=== PATIENT | male | born 1960 | race Caucasian/White ===

== ENCOUNTER 2020-06-05 09:32 | Outpatient (REF) | payer BC, SELFPAY | END 2020-06-05 09:33 | disposition home or self-care (01) | LOC: HO.LAB 09:32 | PROVIDERS: Visit Provider Internal Medicine | DX: Z20.828 Contact with and (suspected) exposure to other viral communicable diseases (principal) | CPT/HCPCS: C9803; U0003 ==

== ENCOUNTER 2020-08-05 16:58 | Emergency (ER) | payer BC, SELFPAY ==
[2020-08-05 17:07] VITALS: BP 147/88; PULSE 88; RESP 18; TEMP 36.8; O2SAT 99
[2020-08-05] MEDS: oxyCODONE HCl Immed Release 5 MG TABLET PO (17:11)
[2020-08-05] MEDS: Lidocaine HCl 1 % MPF 5 ML VIAL SUBCUT (17:11)
--- NOTE | 2020-08-05 17:25 | ED.WOUNDLAC ---
HPI - Wound/Laceration General Chief Complaint: Wound/Laceration Stated Complaint: laceration Time Seen by Provider: 08/05/20 17:03 Source: patient Mode of arrival: ambulatory Limitations: no limitations History of Present Illness HPI narrative: 60yoM presenting to the ED after he sustained a laceration to his right hand index finger from a pocket knife while at home [employer]. Reports that he is not up-to-date on tetanus. Denies any fevers, concerns for foreign bodies, purulent discharge or any other injuries complaints or concerns at this time. Related Data Previous Rx's Medication Instructions Recorded cephalexin [Keflex] 500 mg PO Q6H 10 Days #40 cap 08/05/20 doxycycline monohydrate 100 mg PO BID 10 Days #20 cap 08/05/20 oxycodone-acetaminophen [Percocet] 1 tab PO Q6H PRN #10 tab 08/05/20 Allergies Allergy/AdvReac Type Severity Reaction Status Date / Time No Known Allergies Allergy Unverified 04/09/20 16:18 [No Known Allergies*] Review of Systems Review of Systems: Constitutional : No Fever, No Chills, Cardiovascular : No Chest Pain, No SOB Respiratory : No Dyspnea Gastrointestinal : No abdominal pain Musculoskeletal : No Joint Swelling Skin : positive skin laceration, No Foreign bodies, No rash, No surrounding erythema Neuro : No Weakness, No Numbness/tingling Psych : No SI/HI/thoughts of self injury Yes all other systems are reviewed and are negative [facility] Past Medical History Attestation statement: The following information was validated with the patient. Medical History Migraine Social History Social History Alcohol intake: never Smoked in Last 30 Days: No Use of substances other than those prescribed or required for medical reasons: No Advance Directives: No Advance Directives Information Provided: Yes Physical Exam Vital Signs: Vital Signs: Last Vital Signs Temp 98.2 F 08/05/20 17:07 Pulse 88 08/05/20 17:07 Resp 18 08/05/20 17:07 BP 147/88 H 08/05/20 17:07 Pulse Ox 99 08/05/20 17:07 Body Mass Index 2.7 vital signs have been reviewed as normal and appeared to be correct. Blood pressure normal. Heart rate normal. Respiration rate normal. Temperature normal. Oxygen saturation normal. Appearance: Alert. Oriented X3. No acute distress. Head: Normal external exam. Normocephalic. Atraumatic. Eyes: PERRLA. EOMI. Conjunctiva and sclera normal. Eyelids normal. ENT: Pharynx normal. Uvula midline. Moist mucous membranes. Neck: Normal inspection. Neck supple. FROM. No adenopathy. No meningeal signs. CVS: Normal heart rate and rhythm. Heart sound normal. No murmurs noted. Pulses normal throughout. Respiratory: No respiratory distress. Painless inspiration. Breath sounds normal. No wheezes/rales/rhonchi noted. Chest nontender. No accessory muscle usage noted or decreased air movement noted. Back: Full range of motion noted. Skin: To right hand index finger patient has a 2 cm intermediate laceration. No foreign bodies. Bleeding is controlled. Otherwise the rest of the Skin is warm and dry. Normal skin color. Normal skin turgor. No rashes/lesions noted. Extremities: Extremities exhibit normal range of motion. Extremities nontender. Neuro: Oriented X 3. No motor deficit. No sensory deficit. Reflexes normal. Course Course Course Narrative: 60yoM presenting to the ED after he sustained a laceration to his right hand index finger from a pocket knife while at home [employer] - patient is now status post laceration repair with [address] Patient tolerated procedure well. No complications. Tetanus updated at this time. - will DC home with antibiotics and symptomatic treatment along with instructions return in 10 days for suture removal. Patient understands agrees the plan. Procedures Laceration Laceration 1: Site: hand Side (If applicable): right Size (cm): 2 Description: linear Depth: simple, single layer Local Anesthetic: lidocaine 1% Amount of anesthesia used (mL): 5 Pre-repair: wound explored, irrigated extensively and deep structures intact Skin layer closed with: nylon Size (cm): 4-0 Number of sutures: 7 Technique: simple, interrupted MDM - Wound/Laceration Medical Records Attestation: I reviewed the patient's medical records. Discharge Plan Discharge Clinical Impression: Laceration Patient Disposition: Home, Self-Care Instructions: Finger Laceration (ED) Prescriptions: New oxycodone-acetaminophen [Percocet] 5-325 mg tablet 1 tab PO Q6H PRN (Reason: pain) Qty: 10 RF: 0 doxycycline monohydrate 100 mg capsule 100 mg PO BID 10 Days Qty: 20 RF: 0 cephalexin [Keflex] 500 mg capsule 500 mg PO Q6H 10 Days Qty: 40 RF: 0 Referrals: Piper Hernandez PA [Emergency Midlevel Provider] - 10 days Stand Alone Forms: Work/School Release Print Language: Syriac
== END 2020-08-05 17:46 | disposition home or self-care (01) ==
PROVIDERS: Emergency Provider Internal Medicine
DX: S61.210A Laceration without foreign body of right index finger without damage to nail, initial encounter (principal); W26.0XXA Contact with knife, initial encounter; Y93.9 Activity, unspecified; Y92.019 Unspecified place in single-family (private) house as the place of occurrence of the external cause; Y99.9 Unspecified external cause status
CPT/HCPCS: 12041; 90471; 90715; 99284

== ENCOUNTER 2021-11-02 07:20 | Emergency (ER) | payer BC, SELFPAY ==
--- NOTE | ~2021-11-02 | CT_ITS ---
EXAMINATION: CT ABDOMEN AND PELVIS WITH CONTRAST CLINICAL INFORMATION: Abdominal pain and diarrhea COMPARISON: None TECHNIQUE: Multidetector volumetric images were obtained from the superior aspect of the liver through the pubic symphysis following administration 85 mL of Omnipaque 350 intravenous contrast. Sagittal and coronal reformatted images were obtained on the technologist's workstation. Oral contrast: Yes This CT examination was performed using dose optimization techniques as appropriate, variously including the following: *Automated exposure control *Adjustment of mA and/or kV according to patient size (this includes techniques or standardized protocols for targeted exams where dose is matched to indication/reason for exam; i.e. extremities or head) *Use of iterative reconstruction technique DLP: 597 mGy-cm FINDINGS: LUNG BASES: The visualized lung bases are unremarkable. LIVER, GALLBLADDER, AND BILIARY TREE: The liver is normal in size, shape, and attenuation. No focal hepatic lesion or biliary ductal dilatation is present. The gallbladder is unremarkable with no evidence of radiopaque gallstones, gallbladder wall thickening, or obvious pericholecystic inflammatory changes. PANCREAS: Unremarkable. SPLEEN: Unremarkable. ADRENAL GLANDS: Unremarkable. KIDNEYS AND URETERS: The kidneys are normal in size, shape, and attenuation. No hydronephrosis, hydroureter, or calculi seen. No perinephric stranding. BLADDER: Unremarkable. GASTROINTESTINAL TRACT: There is diverticulosis of the colon. The small and large bowel are otherwise unremarkable. The appendix is unremarkable. ABDOMINAL WALL: Postsurgical changes in the right inguinal and umbilical region. No hernia is seen. LYMPH NODES: Normal. VASCULAR: Unremarkable. PELVIC VISCERA: Unremarkable. OSSEOUS STRUCTURES: There are degenerative changes of the spine and hip joints. CT/CT abdomen pelvis w con IMPRESSION: Diverticulosis. No evidence of diverticulitis. Fleischner guidelines were followed.
[2021-11-02 07:33] VITALS: BP 122/80; PULSE 96; RESP 16; TEMP 37.1; O2SAT 96; BMI 31.1
--- NOTE | 2021-11-02 07:45 | ED_ITS ---
HPI - Nausea/Vomiting/Diarrhea General Chief complaint: Abdominal Pain Stated complaint: vomiting Time Seen by Provider: 11/02/21 07:35 Source: patient Mode of arrival: ambulatory Limitations: no limitations History of Present Illness MD elicited complaint: nausea, vomiting, diarrhea and abdominal pain Onset (ago): day(s) (since Monday ) Description of vomiting: food contents and watery Description of diarrhea: other (foul smelling watery ) Associated nausea: Yes Associated abdominal pain: Yes Location of pain: diffuse Radiation: diffuse Pain consistency: intermittent Severity: mild Quality: cramping Exacerbating factors: eating Relieving factors: none Context: possible food poisoning (started after eating at [employer] on Monday ) and recent antibiotic use (last week took 3 doses of doxy for tick bite) Associated symptoms: loss of appetite, malaise and nausea/vomiting Related Data Previous Rx's Medication Instructions Recorded cephalexin 500 mg capsule (Keflex) 500 mg PO Q6H 10 Days #40 cap 08/05/20 doxycycline monohydrate 100 mg 100 mg PO BID 10 Days #20 cap 08/05/20 capsule oxycodone-acetaminophen 5 mg-325 1 tab PO Q6H PRN #10 tab 08/05/20 mg tablet (Percocet) ondansetron 4 mg disintegrating 4 mg PO Q8H PRN #20 tab 11/02/21 tablet vancomycin 125 mg capsule 125 mg PO QID 10 Days #40 cap 11/02/21 Allergies Allergy/AdvReac Type Severity Reaction Status Date / Time No Known Allergies Allergy Unverified 04/09/20 16:18 [No Known Allergies*] Review of Systems Review of Systems: Constitutional : No Weight loss, No Fever, No Chills ENT/Mouth : No sore throat, No Rhinorrhea Eyes: No Swelling, No Redness Cardiovascular : No Chest Pain, No SOB, NoEdema Respiratory : No Cough, No Sputum, No Wheezing Gastrointestinal : Positive Nausea, Positive Vomiting, positive Diarrhea, positive abdominal Pain, No Hematochezia, No Melena Genitourinary : No Dysuria, No Urinary Frequency, No Hematuria, No Urgency Musculoskeletal : No joint pain, No Myalgias, No Joint Swelling Skin : No Skin Lesions, No rash Neuro : No Weakness, No Numbness, No Dizziness, No Headache Psych : No Anxiety/Panic, No Depression Heme/Lymph: No Bruising, No Lymphadenopathy Endocrine : No Polyuria, No Polydipsia All other systems reviewed and are negative. Gastrointestinal: Gastrointestinal: Reports nausea PMFSH Past Medical History Attestation statement: The following information was validated with the patient. Medical History (Updated 11/02/21 @ 15:35 by Ariadna Ng DO) Hyperlipidemia Migraine Surgical History (Updated 11/02/21 @ 07:57 by Ariadna Ng DO) H/O hernia repair Social History Social History (Updated 11/02/21 @ 07:57 by Ariadna Ng DO) Alcohol intake: never Patient Tobacco Use Status: Never used Tobacco Advance Directives: No Advance Directives Information Provided: No Physical Exam Vital Signs: Vital Signs: Last Vital Signs Temp 99.6 F 11/02/21 10:20 Pulse 73 11/02/21 10:20 Resp 15 11/02/21 10:20 BP 117/62 11/02/21 10:20 Pulse Ox 98 11/02/21 10:20 BMI result Body Mass Index 31.1 Appearance: Alert. Oriented X3. No acute distress. Eyes: Pupils equal, round and reactive to light. ENT: Pharynx mild dry MM Neck: Normal inspection. Neck supple. CVS: Normal heart rate and rhythm. Pulses normal. Respiratory: No respiratory distress. Breath sounds normal. Abdomen: Soft and mild diffuse ttp Skin: Skin warm and dry. Normal skin color. Normal skin turgor. Extremities: No lower extremity edema. No calf ttp Neuro: Oriented X 3. No motor deficit. No sensory deficit. Course Course Course Narrative: no colitis on CT scan at this time, no WBC count, pending stool study negative WBC in stool , c diff pending CT scan negative at this time no indication for antibiotics will start on brat diet - flu pending can tolerate PO stool studies positive for c diff - will start on oral vancomycin no MONICA MDM - Nausea/Vomiting/Diarrhea MDM Narrative Medical decision making narrative: 61 yo male with hx of HLD, ileus, hernia repair here with c/o n/v/d abdominal cramps after eating at [employer] on Monday. He also took doxy last week for tick bite on RL. He notes foul smelling diarrhea and incontinence of his stool. At this time labs, stool studies, CT scan for colitis ordered, IVF x 2L, IV morphine for pain. Dispo per results and findings. Lab Data Result diagrams: 11/02/21 07:50 11/02/21 07:50 Labs: Lab Results 11/02/21 11/02/21 11/02/21 Range/Units 07:50 07:50 07:50 WBC 6.2 (4.8-10.8) X10*3/uL RBC 5.33 (4.60-5.80) X10*6/uL Hgb 15.6 (14.0-18.0) g/dl Hct 47.3 (42.0-52.0) % MCV 88.7 (80.0-98.0) fL MCH 29.3 (27.0-33.0) pg MCHC 33.0 (31.0-36.0) g/dl RDW 13.5 (11.0-16.0) % Plt Count 170 (160-400) X10*3/uL MPV 9.7 (9.4-12.4) fL Immature Gran % (Auto) 0.3 (0.0-0.4) % Neut % (Auto) 68.1 (45-73) % Lymph % (Auto) 15.9 L (20-40) % Walker % (Auto) 14.5 H (2-11) % Eos % (Auto) 1.0 (0-4) % Baso % (Auto) 0.2 (0-2) % Lymph # (Auto) 1.0 L (1.2-4.9) X10*3/uL Walker # (Auto) 0.9 (0.1-1.2) X10*3/uL Eos # (Auto) 0.1 (0.0-0.4) X10*3/uL Baso # (Auto) 0.0 (0.0-0.2) X10*3/uL Abs Immat Gran (auto) 0.02 (0.00-0.03) X10*3/uL Absolute Neuts (auto) 4.2 (2.0-8.3) x10*3/uL Absolute Nucleated RBC 0.000 (0.0-0.012) X10*3/uL Nucleated RBC % (auto) 0.0 (0.0-0.2) /100WBC Sodium 139 (135-145) mmol/L Potassium 3.6 (3.3-5.1) mmol/L Chloride 108 (96-108) mmol/L Carbon Dioxide 21 L (22-29) mmol/L Anion Gap 14 (12-20) BUN 14 (9-16) mg/dL Creatinine 0.82 (0.5-1.4) mg/dL Estim Creat Clear Calc 119.6 Estimated GFR > 60 Random Glucose 125 H (60-115) mg/dL Lactic Acid 0.9 (0.5-2.0) mmol/L Calcium 8.8 (8.4-10.2) mg/dL Magnesium 1.9 (1.6-2.6) mg/dL Total Bilirubin 0.5 (0.0-1.0) mg/dL Direct Bilirubin 0.2 (0.0-0.5) mg/dL AST 23 (5-37) U/L ALT 28 (0-40) U/L Alkaline Phosphatase 57 (39-117) U/L Total Protein 6.0 L (6.5-8.0) g/dL Albumin 3.8 (3.5-5.0) g/dL Lipase 7 L (8-78) U/L Urine Color Urine Appearance Urine pH (5.0-8.0) Ur Specific [place] (1.005-1.025) Urine Protein (NEG-TRACE) MG/DL Urine Glucose (UA) (NEG) MG/DL Urine Ketones (NEG) MG/DL Urine Blood (NEG) Urine Nitrite (NEG) Ur Leukocyte Esterase (NEG) Urine RBC (0) /HPF Urine WBC (0-4) /HPF Ur Squamous Epith Cells /LPF Urine Bacteria /LPF Stool Leukocytes, Qual (NEGATIVE) C. difficile Tox B Gene (Negative) COVID-19 (JACQUI) (Negative) COVID-19 Clin Com Influenza Type A (SUSHANT) (Negative) Influenza Type B (SUSHANT) (Negative) Influenza A & B Note 11/02/21 11/02/21 11/02/21 Range/Units 07:50 10:19 10:19 WBC (4.8-10.8) X10*3/uL RBC (4.60-5.80) X10*6/uL Hgb (14.0-18.0) g/dl Hct (42.0-52.0) % MCV (80.0-98.0) fL MCH (27.0-33.0) pg MCHC (31.0-36.0) g/dl RDW (11.0-16.0) % Plt Count (160-400) X10*3/uL MPV (9.4-12.4) fL Immature Gran % (Auto) (0.0-0.4) % Neut % (Auto) (45-73) % Lymph % (Auto) (20-40) % Walker % (Auto) (2-11) % Eos % (Auto) (0-4) % Baso % (Auto) (0-2) % Lymph # (Auto) (1.2-4.9) X10*3/uL Walker # (Auto) (0.1-1.2) X10*3/uL Eos # (Auto) (0.0-0.4) X10*3/uL Baso # (Auto) (0.0-0.2) X10*3/uL Abs Immat Gran (auto) (0.00-0.03) X10*3/uL Absolute Neuts (auto) (2.0-8.3) x10*3/uL Absolute Nucleated RBC (0.0-0.012) X10*3/uL Nucleated RBC % (auto) (0.0-0.2) /100WBC Sodium (135-145) mmol/L Potassium (3.3-5.1) mmol/L Chloride (96-108) mmol/L Carbon Dioxide (22-29) mmol/L Anion Gap (12-20) BUN (9-16) mg/dL Creatinine (0.5-1.4) mg/dL Estim Creat Clear Calc Estimated GFR Random Glucose (60-115) mg/dL Lactic Acid (0.5-2.0) mmol/L Calcium (8.4-10.2) mg/dL Magnesium (1.6-2.6) mg/dL Total Bilirubin (0.0-1.0) mg/dL Direct Bilirubin (0.0-0.5) mg/dL AST (5-37) U/L ALT (0-40) U/L Alkaline Phosphatase (39-117) U/L Total Protein (6.5-8.0) g/dL Albumin (3.5-5.0) g/dL Lipase (8-78) U/L Urine Color Urine Appearance Urine pH (5.0-8.0) Ur Specific [place] (1.005-1.025) Urine Protein (NEG-TRACE) MG/DL Urine Glucose (UA) (NEG) MG/DL Urine Ketones (NEG) MG/DL Urine Blood (NEG) Urine Nitrite (NEG) Ur Leukocyte Esterase (NEG) Urine RBC (0) /HPF Urine WBC (0-4) /HPF Ur Squamous Epith Cells /LPF Urine Bacteria /LPF Stool Leukocytes, Qual NEGATIVE (NEGATIVE) C. difficile Tox B Gene POSITIVE A* (Negative) COVID-19 (JACQUI) Negative (Negative) COVID-19 Clin Com See Note Influenza Type A (SUSHANT) (Negative) Influenza Type B (SUSHANT) (Negative) Influenza A & B Note 11/02/21 11/02/21 Range/Units 11:15 11:39 WBC (4.8-10.8) X10*3/uL RBC (4.60-5.80) X10*6/uL Hgb (14.0-18.0) g/dl Hct (42.0-52.0) % MCV (80.0-98.0) fL MCH (27.0-33.0) pg MCHC (31.0-36.0) g/dl RDW (11.0-16.0) % Plt Count (160-400) X10*3/uL MPV (9.4-12.4) fL Immature Gran % (Auto) (0.0-0.4) % Neut % (Auto) (45-73) % Lymph % (Auto) (20-40) % Walker % (Auto) (2-11) % Eos % (Auto) (0-4) % Baso % (Auto) (0-2) % Lymph # (Auto) (1.2-4.9) X10*3/uL Walker # (Auto) (0.1-1.2) X10*3/uL Eos # (Auto) (0.0-0.4) X10*3/uL Baso # (Auto) (0.0-0.2) X10*3/uL Abs Immat Gran (auto) (0.00-0.03) X10*3/uL Absolute Neuts (auto) (2.0-8.3) x10*3/uL Absolute Nucleated RBC (0.0-0.012) X10*3/uL Nucleated RBC % (auto) (0.0-0.2) /100WBC Sodium (135-145) mmol/L Potassium (3.3-5.1) mmol/L Chloride (96-108) mmol/L Carbon Dioxide (22-29) mmol/L Anion Gap (12-20) BUN (9-16) mg/dL Creatinine (0.5-1.4) mg/dL Estim Creat Clear Calc Estimated GFR Random Glucose (60-115) mg/dL Lactic Acid (0.5-2.0) mmol/L Calcium (8.4-10.2) mg/dL Magnesium (1.6-2.6) mg/dL Total Bilirubin (0.0-1.0) mg/dL Direct Bilirubin (0.0-0.5) mg/dL AST (5-37) U/L ALT (0-40) U/L Alkaline Phosphatase (39-117) U/L Total Protein (6.5-8.0) g/dL Albumin (3.5-5.0) g/dL Lipase (8-78) U/L Urine Color YELLOW Urine Appearance CLEAR Urine pH 5.5 (5.0-8.0) Ur Specific [place] 1.010 (1.005-1.025) Urine Protein NEG (NEG-TRACE) MG/DL Urine Glucose (UA) NEG (NEG) MG/DL Urine Ketones 5 (NEG) MG/DL Urine Blood TRACE (NEG) Urine Nitrite NEG (NEG) Ur Leukocyte Esterase NEG (NEG) Urine RBC 0-2 (0) /HPF Urine WBC 0 (0-4) /HPF Ur Squamous Epith Cells TRACE /LPF Urine Bacteria NONE /LPF Stool Leukocytes, Qual (NEGATIVE) C. difficile Tox B Gene (Negative) COVID-19 (JACQUI) (Negative) COVID-19 Clin Com Influenza Type A (SUSHANT) Negative (Negative) Influenza Type B (SUSHANT) Negative (Negative) Influenza A & B Note See Note Discharge Plan Discharge Clinical Impression: C. difficile colitis Vomiting Qualifiers: Vomiting type: unspecified Diarrhea Qualifiers: Diarrhea type: unspecified type Qualified Code(s): R19.7 - Diarrhea, unspecified Patient Disposition: Home, Self-Care Instructions: C. Diff (Clostridioides Difficile) Infection (ED), Acute Nausea and Vomiting (ED), Acute Diarrhea (ED) Additional Instructions: return to ED for any worsening symptoms or concerns BRAT diet your labs were shockingly normal. no signs of infection on CT scan. stool WBC negative, stool culture is pending. flu and Cdiff is pending if positive we will call you but unlikely to have c diff with negative WBCs in stool no dairy for 5 days stay hydrated Prescriptions: New ondansetron 4 mg tablet,disintegrating 4 mg PO Q8H PRN (Reason: nausea and vomiting) Qty: 20 0RF vancomycin 125 mg capsule 125 mg PO QID 10 Days Qty: 40 0RF No Action oxycodone-acetaminophen [Percocet] 5-325 mg tablet 1 tab PO Q6H PRN (Reason: pain) Qty: 10 0RF Rx Instructions: May be partially filled doxycycline monohydrate 100 mg capsule 100 mg PO BID 10 Days Qty: 20 0RF cephalexin [Keflex] 500 mg capsule 500 mg PO Q6H 10 Days Qty: 40 0RF Referrals: Baltazar Poole MD [Primary Care Provider] - 2 days (if not better) Stand Alone Forms: Work/School Release Interventions: ED Discharge Assessment Last Done: 11/02/21 11:57 Discharge Date/Time: 11/02/21 12:15
[2021-11-02] MEDS: ondansetron HCL 4 MG/2 ML VIAL IVPUSH (07:55)
[2021-11-02] MEDS: Morphine Sulfate 4 MG/ML CARTRIDGE IVPUSH (07:55)
[2021-11-02 07:56] LABS: MANUAL DIFF FLAG NO
[2021-11-02 07:57] LABS: Basophils Percent Auto 0.2 % (0-2); Eosinophils Absolute Auto 0.1 X10*3/uL (0.0-0.4); Hematocrit 47.3 % (42.0-52.0); Hemoglobin 15.6 g/dl (14.0-18.0); Imm Gran Abs Auto 0.02 X10*3/uL (0.00-0.03); Imm Gran Pct Auto 0.3 % (0.0-0.4); Lymphocytes Percent Auto 15.9 % (20-40); Mean Corpuscular Hemoglobin 29.3 pg (27.0-33.0); Mean Corpuscular Volume 88.7 fL (80.0-98.0); Mean Platelet Volume 9.7 fL (9.4-12.4); Monocytes Absolute Auto 0.9 X10*3/uL (0.1-1.2); Monocytes Percent Auto 14.5 % (2-11); Neutrophils Absolute Auto 4.2 x10*3/uL (2.0-8.3); Neutrophils Percent Auto 68.1 % (45-73); Platelet Count 170 X10*3/uL (160-400); Red Blood Count 5.33 X10*6/uL (4.60-5.80); Red Cell Distribution Width 13.5 % (11.0-16.0); White Blood Count 6.2 X10*3/uL (4.8-10.8)
[2021-11-02 08:05] VITALS: BP 117/78; PULSE 83; RESP 18; TEMP 37.5; O2SAT 94
[2021-11-02 08:09] LABS: Lactic Acid 0.9 mmol/L (0.5-2.0)
[2021-11-02 08:15] LABS: Alanine Aminotransferase 28 U/L (0-40); Albumin Level 3.8 g/dL (3.5-5.0); Alkaline Phosphatase 57 U/L (39-117); Anion Gap 14 (12-20); Aspartate Amino Transferase 23 U/L (5-37); Bilirubin Direct 0.2 mg/dL (0.0-0.5); Bilirubin Total 0.5 mg/dL (0.0-1.0); Blood Urea Nitrogen 14 mg/dL (9-16); Calcium 8.8 mg/dL (8.4-10.2); Carbon Dioxide 21 mmol/L (22-29); Chloride 108 mmol/L (96-108); Creatinine Clr Calc Pharmacy 119.6; Estimated Glomerular Filt Rate > 60; Glucose Random 125 mg/dL (60-115); Lipase 7 U/L (8-78); Magnesium 1.9 mg/dL (1.6-2.6); Potassium 3.6 mmol/L (3.3-5.1); Sodium 139 mmol/L (135-145)
[2021-11-02] MEDS: 0.9 % Sodium Chloride 1,000 ML 999 ML IVCONT ×2 (08:23→08:44)
[2021-11-02 08:25] LABS: COVID-19 Test Negative (Negative); IDNOW Serial# 16C4AD1C
[2021-11-02] MEDS: iohexoL 350 MG/ML 100 ML INFUS..BTL IV (08:41)
--- NOTE | 2021-11-02 09:21 | PC.NURSE ---
resting comfortably, no episodes of diarrhea since arrival. good pain control with medication
[2021-11-02 10:20] VITALS: BP 117/62; PULSE 73; RESP 15; TEMP 37.6; O2SAT 98
[2021-11-02 11:18] LABS: Leukocytes Stool Qualitative NEGATIVE (NEGATIVE)
[2021-11-02 11:32] LABS: Appearance Urine CLEAR; Color Urine YELLOW; Glucose Urine UA NEG (NEG); Leukocyte Esterase Urine NEG (NEG); Nitrite Urine NEG (NEG); PH 5.5 (5.0-8.0); UACC Culture Trigger NO; Urine Blood TRACE (NEG); Urine Ketones 5 MG/DL (NEG); Urine Protein NEG (NEG-TRACE)
[2021-11-02 11:42] LABS: RBC Urine 0-2 /HPF (0); Squamous Epithelial Cell Urine TRACE /LPF; WBC Urine 0 /HPF (0-4)
[2021-11-02 12:14] LABS: IDNOW Serial# 55D5AD1C; Influenza A Negative (Negative); Influenza B2 Negative (Negative)
[2021-11-02 14:15] LABS: CDiff Gene PCR POSITIVE (Negative)
[2021-11-02 15:45] LABS: CDIFF Internal ctrl Dots and bkg OK (V); CDiff Toxin Negative (Negative)
== END 2021-11-02 12:15 | disposition home or self-care (01) ==
PROVIDERS: Emergency Provider Emergency Medicine; PCP Pediatrics
DX: A04.72 Enterocolitis due to Clostridium difficile, not specified as recurrent (principal); R11.2 Nausea with vomiting, unspecified; R19.7 Diarrhea, unspecified; Z20.822 Contact with and (suspected) exposure to COVID-19
CPT/HCPCS: 36415; 74177; 80048; 80076; 81001; 83605; 83690; 83735; 85025; 87040; 87045; 87046; 87324; 87493; 87502; 87635; 89055; 96361; 96374; 96375; 99284; J2270; J2405; Q9967

== ENCOUNTER 2022-06-01 11:05 | Emergency (ER) | payer OTHER, BC, SELFPAY ==
--- NOTE | ~2022-06-01 | XR_ITS ---
EXAMINATION: XR FINGER, LEFT CLINICAL INFORMATION: Fracture dislocation and reduction COMPARISON: Earlier exam of 06/01/2022 TECHNIQUE: 3 views of the left first finger. FINDINGS: Satisfactory reduction of a previously noted dislocation at the first IP joint. New fractures or alignment abnormalities are not observed. XR/XR finger LT min 2V IMPRESSION: Satisfactory reduction.
--- NOTE | ~2022-06-01 | XR_ITS ---
EXAMINATION: XR FINGER, LEFT CLINICAL INFORMATION: Left first digit COMPARISON: None TECHNIQUE: 3 views of the left first digit. FINDINGS: Dislocation of the first IP joint noted. The lateral view demonstrates a faint chip fracture or avulsion injury off the dorsal base of the distal phalanx.. There is degenerative change at the first MCP joint. There is degenerative change at the first CMC joint as well as the second through fifth DIP joints. There is mild spurring off the third metacarpal head. XR/XR finger LT min 2V IMPRESSION: Dislocated IP joint is noted with probable dorsal chip fracture off the base of the distal phalanx.
[2022-06-01 11:20] VITALS: BP 117/73; PULSE 78; RESP 12; TEMP 36.8; O2SAT 96; BMI 32.1
--- OUTSIDE RECORDS SUMMARY | 2022-06-01 11:25 | XMS_ITS ---
:1960 Author Care Team Providers Name Role Phone DR. AMBER ROSAS Referring Provider [phone] Allergies None recorded. Medications None recorded. Problems None recorded. Procedures None recorded. Results Lab Results None recorded. Past Encounters None recorded. Social History None recorded. Vaccine List None recorded. Plan of Care Reminders Provider Appointments None recorded. ? ? Lab None recorded. ? ? Referral None recorded. ? ? Procedures None recorded. ? ? Surgeries None recorded. ? ? Imaging None recorded. ? ? Vitals None recorded.
--- OUTSIDE RECORDS SUMMARY | 2022-06-01 11:26 | XMS_ITS | Encounter Summary ---
:1960 Author Care Team Providers Name Role Phone Cole Salgado PA-C Primary Care Provider [phone] Ravindra Montano MD Referring Provider [phone] Antelmo Carter MD Referring Provider [phone] Sina Tripathi MD General Surgeon [phone] Feroz Powell Tube Machine Operator Helper [phone] Yuli Jean-Baptiste MD Neurologist [phone] Reason for Visit Migraine; Phone/Video Visit Assessment and Plan Assessment Note This service was provided using telemed icine. Patient consented to video & audio visit Patient was located in the [facility]. Provider was located in the office. No other persons participated in the tel emedicine visit except for the patient unless otherwise indicated here. {{}} Total time of visit was 23 minutes. 1. Migraine better on trial of 60mg recently - so w ill increase dose from 30mg to 60mg and cont to monitor ? Qulipta 60 mg tablet ? rizatriptan 10 mg tablet 2. Insomnia stable, cont med as dir - pt requested increase # of tabs, [facility] issues c [facility] - -- encouraged pt to use prn instead of qd ? zolpidem 10 mg tablet Discussion Note: None recorded.Patient educational handouts: No information available. Plan of Care Reminders Provider Appointments [place] on or around 11/29/2022 Prem Salgado PA-C Lab None recorded. ? ? Referral None recorded. ? ? Procedures None recorded. ? ? Surgeries None recorded. ? ? Imaging None recorded. ? ? Medications Name Start Date ? ? hydrocodone 5 mg-acetaminophen 325 mg tablet ? TAKE 1 TABLET BY MOUTH TWICE A DAY NEEDED omeprazole 20 mg capsule,delayed release ? TAKE 1 CAPSULE BY MOUTH EVERY DAY pravastatin 20 mg tablet ? TAKE 1 TABLET BY MOUTH EVERY DAY Qulipta 30 mg tablet ? Take 2 tablets every day by oral route for 30 days. rizatriptan 10 mg tablet ? Take 1 tablet every day by oral route as needed. zolpidem 10 mg tablet ? TAKE 1 TABLET BY MOUTH EVERY DAY AT BEDTIME NEEDED Medications Administered None recorded. Vitals None recorded. Results Lab Results None recorded. Allergies Code Code System Name Reaction Severity Onset Wellbutrin ? ? 10/18/2013 Problems Name Status Onset Date Source ? Obesity Active 11/12/2018 ? Irritable Bowel Syndrome with Diarrhea Active ? Right Inguinal Hernia Active 05/21/2021 ? Clostridium Difficile Colitis Active 11/29/2021 ? Prediabetes Active 11/29/2021 ? History of Polyp of Colon Active 11/29/2021 ? Hyperlipidemia Active ? ? Obstructive Sleep Apnea Syndrome Active ? ? Chronic Pain Active ? ? Migraine Active ? ? Carpal Tunnel Syndrome Active ? ? 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 ? Gastroesophageal Reflux Disease Active ? ? Benign Prostatic Hyperplasia Active ? ? Arthropathy of Joint of Hand Active ? ? Acquired Trigger Finger Active ? ? Procedures Date Name Performed by ? 07/12/2021 Hernia Repair Information not avai lable 10/26/2018 Colonoscopy Information not avai lable Notes: repeat 5 years ? Umbilical Hernioplasty Information not a vailable ? Carpal Tunnel Surgery Information not av ailable ? Other Information not avai lable Notes: Trigger Finger- Left ? Other Information not avai lable Notes: Tendon Repair- Right ? Repair Rotator Cuff Chronic Information not available Vaccine List Vaccine Type COVID-19, mRNA, LNP-S, PF, 100 mcg/0.5 m L dose (Moderna) 10/13/2020?0.5 ML 11/11/2020?0.5 ML 07/03/2021 Influenza, injectable, MDCK, preservativ e free 07/18/2015 Influenza, injectable, MDCK, preservativ e free, quadrivalent 05/02/2020?0.5 ML influenza, injectable, quadrivalent 04/23/2015 influenza, injectable, quadrivalent, pre servative free 03/23/2017?0.5 ML 07/30/2019?0.5 ML 05/20/2021?0.5 ML influenza, seasonal, injectable, preserv ative free 06/24/2014?0.5 ML 04/19/2016 influenza, seasonal, intradermal, preser vative free 04/20/2012 06/13/2013 Tdap 03/21/2008 09/21/2016?0.5 ML 08/05/2020 zoster recombinant 0.5 mL 0.5 mL Social History Tobacco Smoking Status Never Smoker What type of diet are you REGULAR following? Are you able to walk? YESWOREST Are you able to care for Y yourself? Are you currently employed? Y Have you served in the N ? How much tobacco do you chew? none Is blood transfusion acceptable Y in an emergency? What is your relationship status? What is your level of alcohol Occasional Notes: f ew times yearly consumption? Which illicit or recreational None drugs have you used? Have you been to an area known N to be high risk for COVID-19? Are you passively exposed to N smoke? Do you use your seat belt or Y car seat routinely? To the best of your knowledge N have you been in close proximity to any individual who tested positive for COVID-19? Do you take precautions to Y prevent distracted driving? Smoke alarm in home Y Seat belts used routinely Y At what age did you start 0 smoking tobacco? How many children do you have? 2 Do you have smoke and carbon Y monoxide detectors in your home? Have you or anyone in your N household had any of the following symptoms in the last 14 days: sore throat, cough, chills, body aches for unknown reasons, shortness of breath for unknown reasons, loss of smell, loss of taste, fever at or greater than 100 degrees Fahrenheit? *AWV ONLY* Are you presently N prescribed opioid medication by PCP or specialist? If YES -Provider assess the benefit for other, non-opioid pain therapies instead, even if the patient does not have OUD but is possibly at risk. In the 14 days before symptom N onset, have you had close contact with a person who is under investigation for COVID-19 while that person was ill? Do you use sunscreen routinely? Y What was the date of your most 11/29/2021 recent tobacco screening? Are you or anyone in your N household a health care provider or emergency responder? Do you or have you ever used Never used electronic e-cigarettes or vape? cigarettes Do you have an advanced N directive? Have you recently traveled to a N COVID-19 high risk area or gathering in the last 10 days? How many years have you smoked 0 tobacco? In the 14 days before symptom N onset, have you had close contact with a laboratory-confirmed COVID-19 while that case was ill? What is your exercise level? Moderate Notes: Wa lk about a mile a day and job is exe rcise How often do you need to have Never someone help you when you read instructions, pamphlets, or other written material from your doctor or pharmacy? Live alone or with others? with others Do you or have you ever used Never used smokeless tobacco smokeless tobacco? Are you sexually active? Y Do you use protection during No sex? What is your level of caffeine Occasional Notes: coffee 1-2 cups consumption? 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 Past Encounters 05/03/2022 Migraine; Insomnia JEAN-PAUL RamírezC: [id number] [id number], [place] [address], Ph. History of Present Illness Note: <div>TH visit for f/u migraines - has been on uptitrating dose of qulipta - has been on 30mg qd for past 1.5 months, but did a trial of 60mg for a few days- no gaitan x 5 days afterwards, sees neurologist in [place] - no help c botox, etc in past</div> Review of Systems None recorded. Physical Exam None recorded.
--- OUTSIDE RECORDS SUMMARY | 2022-06-01 11:26 | XMS_ITS ---
:1960 Author Care Team Providers Name Role Phone FRANCISCO JULISA Functional Tester [phone] ELTON OZUNA MD Referring Provider [phone] MARCIO CARDONA MD Referring Provider [phone] COLE SOLIS PA-C Primary Care Provider [phone] KAUSHIK MIKE MD Neurologist [phone] MICHELE GOOD MD General Surgeon [phone] Allergies Code Code System Name Reaction Severity Status Onset Wellbutrin ? ? Deactivated 012 Wellbutrin ? ? Active 4 Medications Name Status Start Date Stop Date ? ? acetaminophen 300 mg-codeine 30 mg tablet Completed ? 11/12/2018 Aimovig Autoinjector 140 mg/2 Pack (70 mg/mL) Completed ? 12/24/2018 subcutaneous Aimovig Autoinjector 140 mg/mL subcutaneous auto-injector Comple priyanka ? 07/30/2019 prn Ajovy Syringe 225 mg/1.5 mL subcutaneous Completed ? 02/03/2020 amoxicillin 500 mg capsule Completed ? 05/20 Take by oral route for 7 days. amoxicillin 875 mg tablet Completed ? 2019 amoxicillin 875 mg-potassium clavulanate 125 mg Completed ? 11/12/2018 tablet Amoxil Completed 07/04/2007 07/18/2007 BID aspirin 81 mg tablet,delayed release Completed ? 02/22/2016 Daily by mouth Aspirin EC 325 mg tablet,delayed release Completed 008 05/20/2008 THREE TIMES DAILY, NEEDED azithromycin 250 mg capsule Completed 05/15/200904/24 DIRECTED azithromycin 250 mg tablet Completed ? 05/03 TAKE 2 TABLETS BY MOUTH TODAY, THEN TAKE 1 TABLET DAILY FOR 4 D AYS benzonatate 100 mg capsule Completed ? 02/21 candesartan 8 mg tablet Completed ? 05/07/20 18 cefuroxime axetil 500 mg tablet Unknown ? Not available cephalexin 500 mg capsule Completed ? 2020 TAKE 1 CAPSULE BY MOUTH EVERY 6 HOURS FOR 10 DAYS cetirizine 10 mg tablet Completed 06/15/2010 02/04/20 11 DAILY chlorhexidine gluconate 0.12 % mouthwash Completed ? 05/20/2021 SWISH AND SPIT 15ML IN THE MORNING AND IN THE AFTERNOON FOR 2 W EEKS clarithromycin 500 mg tablet Completed 06/15/201009/2009 TWO TIMES DAILY clonazepam 1 mg tablet Completed 10/18/2013 4 TWO TIMES DAILY, NEEDED codeine-guaifenesin oral syrup Completed 09/05/2007 0 09/13/2007 Q 4 HOURS PRN cyclobenzaprine 10 mg tablet Completed ? cyclobenzaprine 5 mg tablet Completed ? 08/25 Take 1 tablet as needed by oral route for 30 days. diclofenac sodium 50 mg tablet,delayed release Completed ? 02/22/2016 doxepin 10 mg capsule Completed ? 02/03/2020 doxycycline monohydrate 100 mg capsule Completed ? 09/16/2020 TAKE 1 CAPSULE BY MOUTH TWICE A DAY FOR 10 DAYS Emgality Pen 120 mg/mL subcutaneous pen injector Completed ? 11/19/2020 INJECT 1 PEN SUBCUTANEOUSLY EVERY 4 WEEKS FOR MIGRAINE PREVENTI ON erythromycin 5 mg/gram (0.5 %) eye ointment Completed ? 05/07/2018 esomeprazole magnesium 40 mg capsule,delayed release Completed ? 02/22/2016 daily by mouth etodolac 400 mg tablet Completed ? 7 fexofenadine Completed 03/05/2010 02/03/2011 DAILY finasteride 1 mg tablet Completed 09/05/2007 03/05/20 10 QD Flovent HFA Completed 11/03/2008 03/05/2010 BID Flucelvax Quad (PF) 60 mcg (15 mcg x 4)/0.5 mL IM syri nge Completed ? 09/16/2020 PHARMACY ADMINISTERED Fluticasone Propionate (Inhal) 50 mcg/BLIST inhl powd Completed 03/05/2010 02/03/2011 DAILY fluticasone propionate 50 mcg/actuation nasal Completed ? 09/15/2020 spray,suspension gabapentin 100 mg capsule Completed ? 2017 GaviLyte-G 236 gram-22.74 gram-6.74 gram-5.86 Completed ? 11/12/2018 gram oral solution halobetasol propionate Completed 03/10/2009 9 DAILY hydrocodone 10 mg-acetaminophen 325 mg tablet Completed ? 06/13/2016 Take 1 tablet every 4 hours by oral route. hydrocodone 5 mg-acetaminophen 325 mg tablet Active ? Not available TAKE 1 TABLET BY MOUTH TWICE A DAY NEEDED hydrocodone 5 mg-acetaminophen 500 mg tablet Completed 10/18/2013 THREE TIMES DAILY, NEEDED Hydrocortisone (Rectal) 2.5 % cream Completed 09/26/2011 05/02/2013 THREE TIMES DAILY ibuprofen 600 mg tablet Completed ? 05/20/20 21 Take by oral route for 3 days. ibuprofen 800 mg tablet Completed ? 02/22/20 16 as needed by mouth ketorolac 10 mg tablet Completed ? 2 lansoprazole 30 mg capsule,delayed release Completed 03/1003/10/2009 QD Lyrica 25 mg capsule Completed ? 05/07/2018 Take 1 capsule 3 times a day by oral route. M-4 Knee High Stockings Completed 06/21/2011 05/02/20 13 DAILY methocarbamol 500 mg tablet Completed ? 07/2015 metoclopramide 10 mg tablet Completed ? 09/2018 metronidazole 250 mg tablet Completed 04/20/201211/2011 THREE TIMES DAILY naproxen 375 mg tablet Completed ? 7 Nasonex 50 mcg/actuation Jay Completed 08/31/2009 0 03/05/2010 DAILY Nurtec ODT 75 mg disintegrating tablet Completed ? 11/19/2020 Take 1 tablet every day by oral route for 30 days. omeprazole 20 mg capsule,delayed release Active ? Not available TAKE 1 CAPSULE BY MOUTH EVERY DAY omeprazole 20 mg tablet,delayed release Completed ? 05/07/2018 Take 1 tablet every day by oral route for 90 days. ondansetron 4 mg disintegrating tablet Completed ? 11/29/2021 DISSOLVE 1 TABLET BY MOUTH EVERY 8 HOURS NEEDED FOR NAUSEA A ND VOMITING oseltamivir 75 mg capsule Completed ? 2017 oxycodone 5 mg tablet Unknown ? Not availa ble oxycodone-acetaminophen 5 mg-325 mg tablet Completed ? 11/29/2021 TAKE ONE TABLET BY MOUTH EVERY 6 HOURS NEEDED FOR PAIN pravastatin 20 mg tablet Active ? Not rebeca ilable prednisone 10 mg tablet Completed ? 05/03/20 22 TAKE 3 TABLETS BY MOUTH EVERY DAY FOR 5 DAYS prednisone 20 mg tablet Completed ? 11/03/19 18 prednisone 50 mg tablet Completed ? 09/15/19 21 ProAir HFA 90 mcg/actuation aerosol inhaler Completed ? 10/31/2019 propranolol ER 60 mg capsule,24 hr,extended release Completed ? 12/24/2018 Take 1 capsule every day by oral route for 30 days. Qulipta 10 mg tablet Active ? Not availab le TAKE 1 TABLET BY MOUTH EVERY DAY FOR 30 DAYS Qulipta 30 mg tablet Active ? Not availab le Take 2 tablets every day by oral route for 30 days. Qulipta 60 mg tablet Unknown ? Not availab le Take 1 tablet every day by oral route as directed for 30 days. ranitidine 150 mg tablet Completed ? 018 rizatriptan 10 mg tablet Active ? Not rebeca ilable rizatriptan 5 mg tablet Completed ? 05/07/20 18 Take 1 tablet every day by oral route for 30 days. Serevent Diskus 50 mcg/dose powder for inhalation Completed 11/03/2008 03/05/2010 BID simvastatin 20 mg tablet Completed 03/21/2008 008 QD sulfamethoxazole 800 mg-trimethoprim 160 mg tablet Completed 10/18/2013 10/28/2013 TWO TIMES DAILY sumatriptan 6 mg/0.5 mL subcutaneous pen Completed ? 03/23/2017 injector Symbicort 80 mcg-4.5 mcg/actuation HFA aerosol inhaler Completed ? 05/03/2022 INHALE 2 PUFFS 2 TIMES PER DAY FOR 30 DAYS tamsulosin 0.4 mg capsule Completed ? 2021 TAKE ONE CAPSULE BY MOUTH AT BEDTIME testosterone cypionate 200 mg/mL intramuscular Unknown ? Not available oil topiramate 50 mg tablet Unknown ? Not avai lable tramadol 50 mg tablet Completed 02/03/2011 03/05/2011 THREE TIMES DAILY, NEEDED vancomycin 125 mg capsule Completed ? 2021 TAKE 1 CAPSULE BY MOUTH FOUR TIMES A DAY FOR 10 DAYS venlafaxine ER 37.5 mg capsule,extended release Completed ? 10/31/2019 24 hr verapamil Completed 03/21/2008 03/05/2010 THREE TIMES DAILY Xopenex Completed 09/03/2007 10/03/2007 EVERY FOUR HOURS, NEEDED zolpidem 10 mg tablet Active ? Not availa ble TAKE 1 TABLET BY MOUTH EVERY DAY AT BEDTIME NEEDED zolpidem ER 12.5 mg tablet,extended release,multiphase Completed 05/05/2009 05/05/2009 QHS / HS Problems Name Status Onset Date Source ? Malaise and Fatigue Unknown 03/21/2008 ? Malaise and Fatigue Unknown 03/21/2008 ? Administration of Bacterial and Viral Vaccine Unknown ? Administration of Bacterial and Viral Vaccine Unknown ? Acute Bronchitis Unknown 05/15/2009 ? Acute Bronchitis Unknown 05/15/2009 ? Chronic Maxillary Sinusitis Unknown 05/15/2009 ? Chronic Maxillary Sinusitis Unknown 05/15/2009 ? Bronchospasm Unknown 05/15/2009 ? Bronchospasm Unknown 05/15/2009 ? Pure Hypercholesterolemia Unknown 02/03/2011 ? Migraine Unknown 02/03/2011 ? Gastroesophageal Reflux Disease Unknown 02/03/2011 ? Hemorrhoids Unknown 04/20/2012 ? Hemorrhoids Unknown 04/20/2012 ? Bronchitis Unknown 04/20/2012 ? Bronchitis Unknown 04/20/2012 ? Umbilical Hernia Unknown 04/20/2012 ? Umbilical Hernia Unknown 04/20/2012 ? Irritable Bowel Syndrome Unknown 04/20/2012 ? Irritable Bowel Syndrome Unknown 04/20/2012 ? Contact Dermatitis Unknown 04/20/2012 ? Contact Dermatitis Unknown 04/20/2012 ? Alopecia Unknown 04/20/2012 ? Alopecia Unknown 04/20/2012 ? Low Back Pain Unknown 04/20/2012 ? Low Back Pain Unknown 04/20/2012 ? Lateral Epicondylitis Unknown 04/20/2012 ? Lateral Epicondylitis Unknown 04/20/2012 ? Enthesopathy Unknown 04/20/2012 ? Enthesopathy Unknown 04/20/2012 ? 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 Sleep Apnea Unknown 04/20/2012 ? Sleep Apnea Unknown 04/20/2012 ? Wheezing Unknown 04/20/2012 ? Wheezing Unknown 04/20/2012 ? Cough Unknown 04/20/2012 ? Cough Unknown 04/20/2012 ? Screening for Malignant Neoplasm of Colon Unknown 2011 ? Screening for Malignant Neoplasm of Colon Unknown 2011 ? Disorder of Rotator Cuff Unknown 04/20/2012 ? Disorder of Rotator Cuff Unknown 04/20/2012 ? Benign Neoplasm of Colon Unknown 12/11/2012 ? Benign Neoplasm of Colon Unknown 12/11/2012 ? Diarrhea Unknown 12/11/2012 ? Diarrhea Unknown 12/11/2012 ? Patient Status Finding Unknown 12/11/2012 ? Patient Status Finding Unknown 12/11/2012 ? Renewal of Prescription Unknown 12/11/2012 ? Renewal of Prescription Unknown 12/11/2012 ? 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 Influenza Vaccine Needed Unknown 10/18/2013 ? Influenza Vaccine Needed Unknown 10/18/2013 ? Adult Health Examination Unknown 10/18/2013 ? Adult Health Examination Unknown 10/18/2013 ? Obesity Active 11/12/2018 ? Impaired Fasting Glycemia Unknown 07/30/2019 ? Irritable Bowel Syndrome with Diarrhea Active ? Right Inguinal Hernia Active 05/21/2021 ? Clostridium Difficile Colitis Active 11/29/2021 ? Prediabetes Active 11/29/2021 ? History of Polyp of Colon Active 11/29/2021 ? Pure Hypercholesterolemia Unknown ? ? Hyperlipidemia Active ? ? Insomnia Unknown ? ? Obstructive Sleep Apnea Syndrome Active ? ? Chronic Pain Active ? ? Migraine Active ? ? Carpal Tunnel Syndrome Active ? ? Varicose Veins of Lower Extremity Unknown ? ? 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 ? Acute Sinusitis Unknown ? ? Allergic Rhinitis Unknown ? ? Asthma Unknown ? ? Gastroesophageal Reflux Disease Active ? ? Benign Prostatic Hyperplasia Active ? ? Cellulitis of Leg, Excluding Foot Unknown ? ? Arthropathy of Joint of Hand Active ? ? Acquired Trigger Finger Active ? ? Elevated Blood-pressure Reading without Diagnosis of Unknown ? ? Hypertension Patient Status Finding Unknown ? ? Procedures Date Name Performed by [...] Repair Rotator Cuff Chronic Information not available 03/23/2017 XR, Cervical Spine Information not avai lable 05/07/2018 XR, Chest, 2 View Information not avai lable 05/20/2021 US, Groin Information not avai lable Results Lab Results Date Name Specimen Result Interpretation Description Value Range Status Address ? 12/18/2021 HbA1C ? Hemoglobin 5.6 % (4.0-5.6) Final [facility] (Hemoglobin a1C % Refer ence a1C), Blood Labor atories: [address], [place] 12/18/2021 CMP, Serum or High Glucose 100 (70-99) Fin al [facility] Plasma mg/dL mg/dL Reference Laboratori es: [address], [place] ? ? ? Bun 11 (8-23) Final [facility] mg/dL mg/dL Reference Laboratori es: [address], [place] ? ? ? Creatinine 0.7 (0.7-1.2) Final [facility] mg/dL mg/dL Reference Laboratori es: [address], [place] ? ? ? Sodium 142 (133-145) Final [facility] mmol/L mmol/L Reference Laboratori es: [address], [place] ? ? ? Potassium 4.3 (3.6-5.2) Final [facility] mmol/L mmol/L Reference Laboratori es: [address], [place] ? ? ? Chloride 107 (98-107) Final [facility] mmol/L mmol/L Reference Laboratori es: [address], [place] ? ? ? Bicarbonate 26 (22-29) Final [facility] mmol/L mmol/L Reference Laboratori es: [address], [place] ? ? ? Anion Gap 9 (4-17) Final [facility] Reference Laboratori es: [address], [place] ? ? ? Albumin 4.4 (3.4-4.8) Final [facility] gm/dL gm/dL Reference Laboratori es: [address], [place] ? ? ? Calcium 9.4 (8.6-10.5) Final [facility] mg/dL mg/dL Reference Laboratori es: [address], [place] ? ? ? Bilirubin,tot 0.8 (0-1.2) Final [facility] mg/dL mg/dL Reference Laboratori es: [address], [place] ? ? ? Total Protein 6.2 (6.2-8.2) Final [facility] gm/dL gm/dL Reference Laboratori es: [address], [place] ? ? ? Ag Ratio 2.4 ? Final [facility] Reference Laborator[facility]: [address], [place] ? ? ? Ast 23 U/L (0-40) U/L Final [facility] Reference Laboratori es: [address], [place] ? ? ? Alk Phos 70 U/L (40-129) Final [facility] U/L Reference Laboratori es: [address], [place] ? ? ? Alt 27 U/L (0-41) U/L Final [facility] Reference Laboratori es: [address], [place] ? ? ? Estimated GFR 104 ? Final [facility] Creatinine mL/min Refere nce /1.73 Laboratori es: M2 [address], [place] 12/18/2021 Lipid Panel, ? Cholesterol, 156 (<200) Final [facility] Serum Total mg/dL mg/dL Reference Laboratori es: [address], [place] ? ? ? Triglyceride 80 (<150) Final [facility] mg/dL mg/dL Reference Laboratori es: [address], [place] ? ? ? HDL Chol 63 (>39) Final [facility] mg/dL mg/dL Reference Laboratori es: [address], [place] ? ? ? LDL 77 (0-130) Final [facility] Cholesterol, mg/dL mg/dL Refe rence Calculated Labora tories: [address], [place] ? ? ? Non HDL 93 (<160) Final [facility] Cholesterol mg/dL mg/dL Refer ence (Calc) Laboratori es: [address], [place] 11/20/2020 Toxicology ? RESULT AMP negati ? ? In-Office Screen, Urine (Amphetamine) ve Order: Internal U se Only DO No t Attach Compendium DO Not Attach Compendium , Do Not Delete/pema ge ? ? ? RESULT BAR negati ? ? In-Of fice (Barbiturates) ve Or dane: Internal U se Only DO No t Attach Compendium DO Not Attach Compendium , Do Not Delete/pema ge ? ? ? RESULT BZO negati ? ? In-Of fice (Benzodiazepin ve Or dane: es) Internal U se Only DO No t Attach Compendium DO Not Attach Compendium , Do Not Delete/pema ge ? ? ? RESULT REI negati ? ? In-Of fice (Cocaine) ve Order: Internal U se Only DO No t Attach Compendium DO Not Attach Compendium , Do Not Delete/pema ge ? ? ? RESULT MET negati ? ? In-Of fice (Methamphetami ve Or dane: ne) Internal U se Only DO No t Attach Compendium DO Not Attach Compendium , Do Not Delete/pema ge ? ? ? RESULT MTD negati ? ? In-Of fice (Methadone) ve Order : Internal U se Only DO No t Attach Compendium DO Not Attach Compendium , Do Not Delete/pema ge ? ? ? RESULT OPI negati ? ? In-Of fice (Opiate) ve Order: Internal U se Only DO No t Attach Compendium DO Not Attach Compendium , Do Not Delete/pema ge ? ? ? RESULT OXY negati ? ? In-Of fice (Oxycodone) ve Order : Internal U se Only DO No t Attach Compendium DO Not Attach Compendium , Do Not Delete/pema ge ? ? ? RESULT PCP negati ? ? In-Of fice (Phencyclidine ve Or dane: ) Internal U se Only DO No t Attach Compendium DO Not Attach Compendium , Do Not Delete/pema ge ? ? ? RESULT THC negati ? ? In-Of fice (Marijuana) ve Order : Internal U se Only DO No t Attach Compendium DO Not Attach Compendium , Do Not Delete/pema ge 10/02/2020 CBC W/ Auto ? Wbc 5.0 (4.0-11.0) The[facility]ma [facility] Diff K/mm3 K/mm3 Reference Laboratori es: [address], [place] ? ? ? Rbc 5.08 (4.70-6.10 Final [facility] M/mm3 ) M/mm3 Reference Laboratori es: [address], [place] ? ? ? Hgb 14.7 (13.7-17.1 Final [facility] gm/dL ) gm/dL Reference Laboratori es: [address], [place] ? ? ? Hct 46.6 % (40.5-50.0 Final [facility] ) % Reference Laboratori es: [address], [place] ? ? ? Mcv 91.7 (80.0-94.0 Final [facility] fL ) fL Reference Laboratori es: [address], [place] ? ? ? Mch 28.9 (27.0-34.0 Final [facility] pg ) pg Reference Laboratori es: [address], [place] ? ? Low Mchc 31.5 (33.0-37.0 Final [facility] g/dL ) g/dL Reference Laboratori es: [address], [place] ? ? ? Plt 239 (150-460) Final [facility] K/mm3 K/mm3 Reference Laboratori es: [address], [place] ? ? ? RDW-SD 46.2 (<47.0) fL Final [facility] fL Reference Laboratori es: [address], [place] ? ? ? Mpv 10.6 (9.4-12.4) Final [facility] fL fL Reference Laboratori es: [address], [place] ? ? ? Automated 0.0 ? Final [facility] NRBC #/100 Reference WBC's Laboratori es: [address], [place] ? ? ? Abs. NRBC 0.0 ? Final [facility] K/mm3 Reference Laboratori es: [address], [place] 10/02/2020 HbA1C High Hemoglobin 5.7 % (4.0-5.6) Final [facility] (Hemoglobin a1C % Refer ence a1C), Blood Labor atories: [address], [place] 10/02/2020 CMP, Serum or High Glucose 105 (70-99) Fin al [facility] Plasma mg/dL mg/dL Reference Laboratori es: [address], [place] ? ? ? Bun 12 (6-20) Final [facility] mg/dL mg/dL Reference Laboratori es: [address], [place] ? ? ? Creatinine 0.9 (0.7-1.2) Final [facility] mg/dL mg/dL Reference Laboratori es: [address], [place] ? ? ? Sodium 144 (133-145) Final [facility] mmol/L mmol/L Reference Laboratori es: [address], [place] ? ? ? Potassium 4.8 (3.6-5.2) Final [facility] mmol/L mmol/L Reference Laboratori es: [address], [place] ? ? ? Chloride 106 (98-107) Final [facility] mmol/L mmol/L Reference Laboratori es: [address], [place] ? ? High Bicarbonate 30 (22-29) Final [facility] mmol/L mmol/L Reference Laboratori es: [address], [place] ? ? ? Anion Gap 8 (4-17) Final [facility] Reference Laboratori es: [address], [place] ? ? ? Albumin 4.4 (3.4-4.8) Final [facility] gm/dL gm/dL Reference Laboratori es: [address], [place] ? ? ? Calcium 9.6 (8.6-10.5) Final [facility] mg/dL mg/dL Reference Laboratori es: [address], [place] ? ? ? Bilirubin,tot 0.6 (0-1.2) Final [facility] mg/dL mg/dL Reference Laboratori es: [address], [place] ? ? ? Total Protein 6.4 (6.2-8.2) Final [facility] gm/dL gm/dL Reference Laboratori es: [address], [place] ? ? ? Ag Ratio 2.2 ? Final [facility] Reference Laboratori es: [address], [place] ? ? ? Ast 16 U/L (0-40) U/L Final [facility] Reference Laboratori es: [address], [place] ? ? ? Alk Phos 66 U/L (40-129) Final [facility] U/L Reference Laboratori es: [address], [place] ? ? ? Alt 18 U/L (0-41) U/L Final [facility] Reference Laboratori es: [address], [place] ? ? ? Est GFR Non 90 ? Final [facility] mL/min Reference [place] /1.73 Laborato harshil: M2 [address], [place] ? ? ? Est GFR 104 ? Final [facility] mL/min Reference [place] /1.73 Laborato harshil: M2 [address], [place] 10/02/2020 Lipid Panel, ? Cholesterol, 181 (<200) Final [facility] Serum Total mg/dL mg/dL Reference Laboratori es: [address], [place] ? ? ? Triglyceride 98 (<150) Final [facility] mg/dL mg/dL Reference Laboratori es: [address], [place] ? ? ? HDL Chol 67 (>39) Final [facility] mg/dL mg/dL Reference Laboratori es: [address], [place] ? ? ? LDL 94 (0-130) Final [facility] Cholesterol, mg/dL mg/dL Refe rence Calculated Labora tories: [address], [place] ? ? ? Non HDL 114 (<160) Final [facility] Cholesterol mg/dL mg/dL Refer ence (Calc) Laboratori es: [address], [place] 09/14/2019 CMP, Serum or ? Glucose 93 (70-99) Fin al [facility] Plasma mg/dL mg/dL Reference Laboratori es: [address], [place] ? ? ? Bun 11 (6-20) Final [facility] mg/dL mg/dL Reference Laboratori es: [address], [place] ? ? ? Creatinine 0.8 (0.7-1.2) Final [facility] mg/dL mg/dL Reference Laboratori es: [address], [place] ? ? ? Sodium 142 (133-145) Final [facility] mmol/L mmol/L Reference Laboratori es: [address], [place] ? ? ? Potassium 4.5 (3.6-5.2) Final [facility] mmol/L mmol/L Reference Laboratori es: [address], [place] ? ? ? Chloride 105 (98-107) Final [facility] mmol/L mmol/L Reference Laboratori es: [address], [place] ? ? ? Bicarbonate 28 (22-29) Final [facility] mmol/L mmol/L Reference Laboratori es: [address], [place] ? ? ? Anion Gap 9 (4-17) Final [facility] Reference Laboratori es: [address], [place] ? ? ? Albumin 3.9 (3.4-4.8) Final [facility] gm/dL gm/dL Reference Laboratori es: [address], [place] ? ? ? Calcium 8.9 (8.6-10.5) Final [facility] mg/dL mg/dL Reference Laboratori es: [address], [place] ? ? ? Bilirubin,tot 0.5 (0-1.2) Final [facility] mg/dL mg/dL Reference Laboratori es: [address], [place] ? ? Low Total Protein 6.1 (6.2-8.2) Final [facility] gm/dL gm/dL Reference Laboratori es: [address], [place] ? ? ? Ag Ratio 1.8 ? Final [facility] Reference Laboratori es: [address], [place] ? ? ? Ast 21 U/L (0-38) U/L Final [facility] Reference Laboratori es: [address], [place] ? ? ? Alk Phos 44 U/L (40-129) Final [facility] U/L Reference Laboratori es: [address], [place] ? ? ? Alt 34 U/L (0-41) U/L Final [facility] Reference Laboratori es: [address], [place] ? ? ? Est GFR Non 98 ? Final [facility] mL/min Reference [place] /1.73 Laborato harshil: M2 [address], [place] ? ? ? Est GFR 114 ? Final [facility] mL/min Reference [place] /1.73 Laborato harshil: M2 [address], [place] 09/14/2019 Lipid Panel, ? Cholesterol, 133 (<200) Final [facility] Serum Total mg/dL mg/dL Reference Laboratori es: [address], [place] ? ? ? Triglyceride 90 (<150) Final [facility] mg/dL mg/dL Reference Laboratori es: [address], [place] ? ? Low HDL Chol 26 (>39) Final [facility] mg/dL mg/dL Reference Laboratori es: [address], [place] ? ? ? LDL 89 (0-130) Final [facility] Cholesterol, mg/dL mg/dL Refe rence Calculated Labora tories: [address], [place] ? ? ? Non HDL 107 (<160) Final [facility] Cholesterol mg/dL mg/dL Refer ence (Calc) Laboratori es: [address], [place] 09/14/2019 PSA, Serum or ? Psa 1.0 (0-4) Final [facility] Plasma NG/mL NG/mL Reference Laboratori es: [address], [place] 09/14/2019 HbA1C ? Hemoglobin 5.6 % (4.0-5.6) Final [facility] (Hemoglobin a1C % Refer ence a1C), Blood Labor atories: [address], [place] 12/13/2018 CBC W/ Auto ? Wbc 6.3 (4.0-11.0) Thelma l [facility] Diff K/mm3 K/mm3 Reference Laboratori es: [address], [place] ? ? ? Rbc 4.96 (4.70-6.10 Final [facility] M/mm3 ) M/mm3 Reference Laboratori es: [address], [place] ? ? ? Hgb 15.0 (13.7-17.1 Final [facility] gm/dL ) gm/dL Reference Laboratori es: [address], [place] ? ? ? Hct 44.7 % (40.5-50.0 Final [facility] ) % Reference Laboratori es: [address], [place] ? ? ? Mcv 90.1 (80.0-94.0 Final [facility] fL ) fL Reference Laboratori es: [address], [place] ? ? ? Mch 30.2 (27.0-34.0 Final [facility] pg ) pg Reference Laboratori es: [address], [place] ? ? ? Mchc 33.6 (33.0-37.0 Final [facility] g/dL ) g/dL Reference Laboratori es: [address], [place] ? ? ? Plt 267 (150-460) Final [facility] K/mm3 K/mm3 Reference Laboratori es: [address], [place] ? ? ? RDW-SD 42.7 (<47.0) fL Final [facility] fL Reference Laboratori es: [address], [place] ? ? ? Mpv 10.5 (9.4-12.4) Final [facility] fL fL Reference Laboratori es: [address], [place] ? ? ? Automated 0.0 ? Final [facility] NRBC #/100 Reference WBC's Laboratori es: [address], [place] ? ? ? Abs. NRBC 0.0 ? Final [facility] K/mm3 Reference Laboratori es: [address], [place] 12/13/2018 CMP, Serum or High Glucose 129 (70-99) Fin al [facility] Plasma mg/dL mg/dL Reference Laboratori es: [address], [place] ? ? ? Bun 11 (6-20) Final [facility] mg/dL mg/dL Reference Laboratori es: [address], [place] ? ? ? Creatinine 0.9 (0.7-1.2) Final [facility] mg/dL mg/dL Reference Laboratori es: [address], [place] ? ? ? Sodium 143 (133-145) Final [facility] mmol/L mmol/L Reference Laboratori es: [address], [place] ? ? ? Potassium 4.0 (3.6-5.2) Final [place] mmol/L mmol/L Reference Laboratori es: [address], [place] ? ? ? Chloride 105 (98-107) Final [facility] mmol/L mmol/L Reference Laboratori es: [address], [place] ? ? ? Bicarbonate 27 (22-29) Final [place] mmol/L mmol/L Reference Laboratori es: [address], [place] ? ? ? Anion Gap 11 (4-17) Final [facility] Reference Laboratori es: [address], [place] ? ? ? Albumin 4.5 (3.4-4.8) Final [facility] gm/dL gm/dL Reference Laboratori es: [address], [place] ? ? ? Calcium 9.5 (8.6-10.5) Final [facility] mg/dL mg/dL Reference Laboratori es: [address], [place] ? ? ? Bilirubin,tot 0.4 (0-1.2) Final [facility] mg/dL mg/dL Reference Laboratori es: [address], [place] ? ? ? Total Protein 6.5 (6.2-8.2) Final [facility] gm/dL gm/dL Reference Laboratori es: [address], [place] ? ? ? Ag Ratio 2.3 ? Final [facility] Reference Laboratori es: [address], [place] ? ? ? Ast 21 U/L (0-38) U/L Final [facility] Reference Laboratori es: [address], [place] ? ? ? Alk Phos 61 U/L (40-129) Final [facility] U/L Reference Laboratori es: [address], [place] ? ? ? Alt 26 U/L (0-41) U/L Final [facility] Reference Laboratori es: [address], [place] ? ? ? Est GFR Non 94 ? Final [facility] mL/min Reference [place] /1.73 Laborato harshil: M2 [address], [place] ? ? ? Est GFR 109 ? Final [facility] mL/min Reference [place] /1.73 Laborato harshil: M2 [address], [place] 12/13/2018 TSH, Serum or ? Tsh 1.73 (0.40-4.00 Fi nal [facility] Plasma mIU/mL ) mIU/mL Referenc e Laboratori es: [address], [place] 12/13/2018 Vitamin D, ? 25OH Vitamin 37.9 (20-50) F inal [facility] 25-Hydroxy, D NG/mL NG/mL Refer ence Total, Serum Labo ratories: [address], [place] 12/13/2018 Hepatitis C ? Anti-hepatiti ? ? Final [facility] Virus Ab, s C Referen ce Serum Laboratori es: [address], [place] 12/13/2018 HbA1C ? Hemoglobin 5.6 % (0-5.6) % Final [facility] (Hemoglobin a1C, Refer ence a1C), Blood (Diagnostic) Laboratories: [facility] [address], [place] 11/02/2017 ALT (Alanine ? Alt 37 U/L (0-41) U/L Fin al [facility] Aminotransfera Re ference se), Serum or Lab oratories: Plasma [address], [place] 11/02/2017 AST/SGOT ? Ast 24 U/L (0-38) U/L Final [facility] (Aspartate Refere nce Aminotransfera La boratories: se), Serum or [address], [place] 11/02/2017 BMP, Serum or High Glucose 105 (70-99) Fin al [facility] Plasma mg/dL mg/dL Reference Laboratori es: [address], [place] ? ? ? Bun 11 (6-20) Final [facility] mg/dL mg/dL Reference Laboratori es: [address], [place] ? ? ? Creatinine 0.9 (0.7-1.2) Final [facility] mg/dL mg/dL Reference Laboratori es: [address], [place] ? ? ? Sodium 142 (133-145) Final [facility] mmol/L mmol/L Reference Laboratori es: [address], [place] ? ? ? Potassium 4.9 (3.6-5.2) Final [place] mmol/L mmol/L Reference Laboratori es: [address], [place] ? ? ? Chloride 103 (98-107) Final [facility] mmol/L mmol/L Reference Laboratori es: [address], [place] ? ? High Bicarbonate 30 (22-29) Final [place] mmol/L mmol/L Reference Laboratori es: [address], [place] ? ? ? Anion Gap 9 (4-17) Final [facility] Reference Laboratori es: [address], [place] ? ? ? Calcium 9.8 (8.6-10.5) Final [place] mg/dL mg/dL Reference Laboratori es: [address], [place] ? ? ? Est GFR Non 95 ? Final [facility] mL/min Reference [place] /1.73 Laborato harshil: M2 [address], [place] ? ? ? Est GFR 110 ? Final [facility] mL/min Reference [place] /1.73 Laborato harshil: M2 [address], [place] 11/02/2017 Lipid Panel, ? Cholesterol, 198 (<200) Final [facility] Serum Total mg/dL mg/dL Reference Laboratori es: [address], [place] ? ? ? Triglyceride 144 (<150) Final [place] mg/dL mg/dL Reference Laboratori es: [address], [place] ? ? ? HDL Chol 64 (>39) Final [facility] mg/dL mg/dL Reference Laboratori es: [address], [place] ? ? ? LDL 105 (0-130) Final [facility] Cholesterol, mg/dL mg/dL Refe rence Calculated Labora tories: [address], [place] ? ? ? Non HDL 134 (<160) Final [facility] Cholesterol mg/dL mg/dL Refer ence (Calc) Laboratori es: [address], [place] 11/02/2017 HbA1C ? Hemoglobin 5.6 % (4-6) % Final [facility] (Hemoglobin a1C Refer ence a1C), Blood Labor atories: [address], [place] 09/02/2017 Rapid Flu Nose ? Flu a positi ? ? In- Office (A+B) (alkesha ve Order: al Internal U se pass Only DO No t age) Attach Compendium DO Not Attach Compendium , Do Not Delete/pema ge ? ? Nose ? Flu B negati ? ? In-Office (lakesha ve Order: al Internal U se pass Only DO No t age) Attach Compendium DO Not Attach Compendium , Do Not Delete/pema ge 08/03/2017 Toxicology ? Result THC negati ? ? In-Office Screen, Urine (Marijuana) ve Order: Internal U se Only DO No t Attach Compendium DO Not Attach Compendium , Do Not Delete/pema ge ? ? ? Result TCA negati ? ? In-Of fice (Tricyclics) ve Orde r: Internal U se Only DO No t Attach Compendium DO Not Attach Compendium , Do Not Delete/pema ge ? ? ? Result BAR negati ? ? In-Of fice (Barbiturates) ve Or dane: Internal U se Only DO No t Attach Compendium DO Not Attach Compendium , Do Not Delete/pema ge ? ? ? Result BZO negati ? ? In-Of fice (Benzodiazepin ve Or dane: es) Internal U se Only DO No t Attach Compendium DO Not Attach Compendium , Do Not Delete/pema ge ? ? ? Result MTD negati ? ? In-Of fice (Methadone) ve Order : Internal U se Only DO No t Attach Compendium DO Not Attach Compendium , Do Not Delete/pema ge ? ? ? Result AMP negati ? ? In-Of fice (Amphetamine) ve Ord er: Internal U se Only DO No t Attach Compendium DO Not Attach Compendium , Do Not Delete/pema ge ? ? ? Result MOP negati ? ? In-Of fice (Opiate) ve Order: Internal U se Only DO No t Attach Compendium DO Not Attach Compendium , Do Not Delete/pema ge ? ? ? Result OXY negati ? ? In-Of fice (Oxycodone) ve Order : Internal U se Only DO No t Attach Compendium DO Not Attach Compendium , Do Not Delete/epma ge ? ? ? Result MDMA negati ? ? In-O ffice (Methylenediox ve Or dane: ymethamphetami In ternal Use ne) Only DO No t Attach Compendium DO Not Attach Compendium , Do Not Delete/pema ge ? ? ? Result REI negati ? ? In-Of fice (Cocaine) ve Order: Internal U se Only DO No t Attach Compendium DO Not Attach Compendium , Do Not Delete/pema ge ? ? ? Result PCP negati ? ? In-Of fice (Phencyclidine ve Or dane: ) Internal U se Only DO No t Attach Compendium DO Not Attach Compendium , Do Not Delete/pema ge ? ? ? Result METH negati ? ? In-O ffice (Methamphetami ve Or dane: ne) Internal U se Only DO No t Attach Compendium DO Not Attach Compendium , Do Not Delete/pema ge 09/23/2016 CBC W/ Auto ? Wbc 9.3 (4.0-11.0) Thelma l [facility] Diff K/mm3 K/mm3 Reference Laboratori es: [address], [place] ? ? ? Rbc 4.73 (4.70-6.10 Final [facility] M/mm3 ) M/mm3 Reference Laboratori es: [address], [place] ? ? Low Hgb 13.6 (14.0-18.0 Final [facility] gm/dL ) gm/dL Reference Laboratori es: [address], [place] ? ? ? Hct 42.2 % (42.0-52.0 Final [facility] ) % Reference Laboratori es: [address], [place] ? ? ? Mcv 89.2 (80.0-94.0 Final [facility] fL ) fL Reference Laboratori es: [address], [place] ? ? ? Mch 28.8 (27.0-34.0 Final [facility] pg ) pg Reference Laboratori es: [address], [place] ? ? Low Mchc 32.2 (33.0-37.0 Final [facility] g/dL ) g/dL Reference Laboratori es: [address], [place] ? ? ? Plt 267 (150-460) Final [facility] K/mm3 K/mm3 Reference Laboratori es: [address], [place] ? ? ? RDW-SD 43.9 (<47.0) fL Final [facility] fL Reference Laboratori es: [address], [place] ? ? ? Mpv 10.7 (9.4-12.4) Final [facility] fL fL Reference Laboratori es: [address], [place] ? ? ? Automated 0.0 ? Final [facility] NRBC #/100 Reference WBC's Laboratori es: [address], [place] ? ? ? Abs. NRBC 0.0 ? Final [facility] K/mm3 Reference Laboratori es: [address], [place] ? ? ? Neut # 6.5 (1.3-7.0) Final [facility] K/mm3 K/mm3 Reference Laboratori es: [address], [place] ? ? ? Lymph # 2.1 (0.8-3.1) Final [facility] K/mm3 K/mm3 Reference Laboratori es: [address], [place] ? ? ? Whatcom# 0.6 (0.4-1.3) Final [facility] K/mm3 K/mm3 Reference Laboratori es: [address], [place] ? ? ? Eo # 0.0 (0.0-0.4) Final [facility] K/mm3 K/mm3 Reference Laboratori es: [address], [place] ? ? ? Baso # 0.0 (0.0-0.1) Final [facility] K/mm3 K/mm3 Reference Laboratori es: [address], [place] ? ? ? Abs. Imm Gran 0.1 ? Final [facility] K/mm3 Reference Laboratori es: [address], [place] ? ? ? Neut 69.7 % (44-76) % Final [facility] Reference Laboratori es: [address], [place] ? ? ? Lymph 23.0 % (15-43) % Final [facility] Reference Laboratori es: [address], [place] ? ? ? Monocyte 6.6 % (4.5-10.5) Final [place] % Reference Laboratori es: [address], [place] ? ? ? Eo 0.1 % (0-6) % Final [facility] Reference Laboratori es: [address], [place] ? ? ? Baso 0.1 % (0-2) % Final [facility] Reference Laboratori es: [address], [place] ? ? ? Imm Gran 0.5 % (0.0-0.6) Final [place] [facility] % Reference Laboratori es: [address], [place] 09/23/2016 BMP, Serum or High Glucose 138 (70-99) Fin al [facility] Plasma mg/dL mg/dL Reference Laboratori es: [address], [place] ? ? ? Bun 17 (6-20) Final [facility] mg/dL mg/dL Reference Laboratori es: [address], [place] ? ? ? Creatinine 0.8 (0.7-1.2) Final [facility] mg/dL mg/dL Reference Laboratori es: [address], [place] ? ? ? Sodium 139 (133-145) Final [facility] mmol/L mmol/L Reference Laboratori es: [address], [place] ? ? ? Potassium 4.1 (3.6-5.2) Final [place] mmol/L mmol/L Reference Laboratori es: [address], [place] ? ? ? Chloride 102 (98-107) Final [facility] mmol/L mmol/L Reference Laboratori es: [address], [place] ? ? ? Bicarbonate 24 (22-29) Final [place] [facility] mmol/L mmol/L Reference Laboratori es: [address], [place] ? ? ? Anion Gap 13 (4-17) Final [facility] Reference Laboratori es: [address], [place] ? ? ? Calcium 9.4 (8.6-10.5) Final [place] [facility] mg/dL mg/dL Reference Laboratori es: [address], [place] ? ? ? Est GFR Non 101 ? Final [place] [facility] mL/min Reference [place] /1.73 Laborato harshil: M2 [address], [place] ? ? ? Est GFR 117 ? Final [facility] mL/min Reference [place] /1.73 Laborato harshil: M2 [address], [place] 09/23/2016 TSH, Serum or ? Tsh 0.76 (0.40-4.00 Fi nal [facility] Plasma mIU/mL ) mIU/mL Referenc e Laboratori es: [address], [place] 07/01/2014 BMP, Serum or High Glucose 110 (70-99) Fin al [facility] Plasma mg/dL mg/dL Reference Laboratori es: [address], [place] ? ? ? Bun 11 (6-20) Final [facility] mg/dL mg/dL Reference Laboratori es: [address], [place] ? ? ? Creatinine 0.9 (0.7-1.2) Final [facility] mg/dL mg/dL Reference Laboratori es: [address], [place] ? ? ? Sodium 141 (133-145) Final [facility] mmol/L mmol/L Reference Laboratori es: [address], [place] ? ? ? Potassium 4.8 (3.6-5.2) Final [place] mmol/L mmol/L Reference Laboratori es: [address], [place] ? ? ? Chloride 105 (98-107) Final [facility] mmol/L mmol/L Reference Laboratori es: [address], [place] ? ? ? Bicarbonate 28 (22-29) Final [place] mmol/L mmol/L Reference Laboratori es: [address], [place] ? ? ? Anion Gap 8 (4-17) Final [facility] Reference Laboratori es: [address], [place] ? ? ? Calcium 9.4 (8.6-10.5) Final [place] [facility] mg/dL mg/dL Reference Laboratori es: [address], [place] ? ? ? Est GFR Non >60 ? Final [place] [facility] mL/min Reference [place] /1.73 Laborato harshil: M2 [address], [place] ? ? ? Est GFR >60 ? Final [facility] mL/min Reference [place] /1.73 Laborato harshil: M2 [address], [place] 07/01/2014 ALT (Alanine ? Alt 38 U/L (0-41) U/L Fin al [facility] Aminotransfera Re ference se), Serum or Lab oratories: Plasma [address], [place] 07/01/2014 AST/SGOT ? Ast 28 U/L (0-38) U/L Final [facility] (Aspartate Refere nce Aminotransfera La boratories: se), Serum or [address], [place] 07/01/2014 Lipid Panel, ? Cholesterol, 184 (<200) Final [facility] Serum Total mg/dL mg/dL Reference Laboratori es: [address], [place] ? ? ? Triglyceride 113 (<150) Final [place] [facility] mg/dL mg/dL Reference Laboratori es: [address], [place] ? ? ? HDL Chol 67 (>39) Final [facility] mg/dL mg/dL Reference Laboratori es: [address], [place] ? ? ? LDL 94 (0-130) Final [facility] Cholesterol, mg/dL mg/dL Refe rence Calculated Labora tories: [address], [place] ? ? ? Non HDL 117 (<160) Final [facility] Cholesterol mg/dL mg/dL Refer ence (Calc) Laboratori es: [address], [place] 06/19/2013 Lipid Panel, ? Cholesterol, 174 (0-200) Final [facility] Serum Total mg/dL mg/dL Reference Laboratori es: [address], [place] ? ? ? Triglyceride 91 (0-150) Final [facility] mg/dL mg/dL Reference Laboratori es: [address], [place] ? ? ? HDL Chol 58 (>40) Final [facility] mg/dL mg/dL Reference Laboratori es: [address], [place] ? ? ? LDL 98 (0-130) Final [facility] Cholesterol, mg/dL mg/dL Refe rence Calculated Labora tories: [address], [place] ? ? ? Non HDL 116 (0-160) Final [facility] Cholesterol mg/dL mg/dL Refer ence (Calc) Laboratori es: [address], [place] 06/19/2013 BMP, Serum or ? Glucose 97 (70-99) Fin al [facility] Plasma mg/dL mg/dL Reference Laboratori es: [address], [place] ? ? ? Bun 9 (6-20) Final [facility] mg/dL mg/dL Reference Laboratori es: [address], [place] ? ? ? Creatinine 0.9 (0.7-1.2) Final [facility] mg/dL mg/dL Reference Laboratori es: [address], [place] ? ? ? Sodium 143 (133-145) Final [facility] mmol/L mmol/L Reference Laboratori es: [address], [place] ? ? ? Potassium 4.9 (3.6-5.2) Final [place] mmol/L mmol/L Reference Laboratori es: [address], [place] ? ? ? Chloride 106 (98-107) Final [facility] mmol/L mmol/L Reference Laboratori es: [address], [place] ? ? ? Bicarbonate 28 (22-29) Final [place] [facility] mmol/L mmol/L Reference Laboratori es: [address], [place] ? ? ? Anion Gap 9 (4-17) Final [facility] Reference Laboratori es: [address], [place] ? ? ? Calcium 9.4 (8.6-10.5) Final [place] [facility] mg/dL mg/dL Reference Laboratori es: [address], [place] ? ? ? Est GFR Non >60 ? Final [place] [facility] mL/min Reference [place] /1.73 Laborato harshil: M2 [address], [place] ? ? ? Est GFR >60 ? Final [facility] mL/min Reference [place] /1.73 Laborato harshil: M2 [address], [place] 06/19/2013 AST/SGOT ? Ast 28 U/L (0-38) U/L Final [facility] (Aspartate Refere nce Aminotransfera La boratories: se), Serum or [address], [place] 06/19/2013 ALT (Alanine ? Alt 31 U/L (0-41) U/L Fin al [facility] Aminotransfera Re ference se), Serum or Lab oratories: Plasma [address], [place] 11/03/2011 Lipid Panel, High Cholesterol, 234 (0-200) Final [facility] Serum Total mg/dL mg/dL Reference Laboratori es: [address], [place] ? ? ? Triglyceride 145 (0-150) Final [facility] mg/dL mg/dL Reference Laboratori es: [address], [place] ? ? ? HDL Chol 65 (>40) Final [facility] mg/dL mg/dL Reference Laboratori es: [address], [place] ? ? High LDL 140 (0-130) Final [facility] Cholesterol, mg/dL mg/dL Refe rence Calculated Labora tories: [address], [place] ? ? High Non HDL 169 (0-160) Final [facility] Cholesterol mg/dL mg/dL Refer ence (Calc) Laboratori es: [address], [place] 11/03/2011 Hepatic ? Bilirubin,tot 0.7 (0-1.2) Fin al [facility] Function al mg/dL mg/dL Referenc e Panel, Serum Labo ratories: [address], [place] ? ? ? Bilirubin, 0.2 (0-0.3) Final [facility] Direct mg/dL mg/dL Reference Laboratori es: [address], [place] ? ? ? Indirect 0.5 (0.0-0.7) Final [facility] Bilirubin mg/dL mg/dL Referen ce Laboratori es: [address], [place] ? ? ? Albumin 4.7 (3.4-4.8) Final [facility] gm/dL gm/dL Reference Laboratori es: [address], [place] ? ? ? Ast 22 U/L (0-38) U/L Final [facility] Reference Laboratori es: [address], [place] ? ? ? Alt 26 U/L (0-41) U/L Final [facility] Reference Laboratori es: [address], [place] ? ? ? Alk Phos 65 U/L (40-129) Final [facility] U/L Reference Laboratori es: [address], [place] ? ? ? Total Protein 6.8 (6.2-8.2) Final [facility] gm/dL gm/dL Reference Laboratori es: [address], [place] 11/03/2011 BMP, Serum or ? Glucose 96 (70-99) Fin al [facility] Plasma mg/dL mg/dL Reference Laboratori es: [address], [place] ? ? ? Bun 11 (6-20) Final [facility] mg/dL mg/dL Reference Laboratori es: [address], [place] ? ? ? Creatinine 0.9 (0.7-1.2) Final [facility] mg/dL mg/dL Reference Laboratori es: [address], [place] ? ? ? Sodium 142 (133-145) Final [facility] mmol/L mmol/L Reference Laboratori es: [address], [place] ? ? ? Potassium 4.1 (3.6-5.2) Final [place] [facility] mmol/L mmol/L Reference Laboratori es: [address], [place] ? ? ? Chloride 105 (98-107) Final [facility] mmol/L mmol/L Reference Laboratori es: [address], [place] ? ? ? Bicarbonate 26 (22-29) Final [place] [facility] mmol/L mmol/L Reference Laboratori es: [address], [place] ? ? ? Anion Gap 11 (4-17) Final [facility] Reference Laboratori es: [address], [place] ? ? ? Calcium 9.7 (8.6-10.5) Final [place] mg/dL mg/dL Reference Laboratori es: [address], [place] ? ? ? Est GFR Non >60 ? Final [facility] mL/min Reference [place] /1.73 Laborato harshil: M2 [address], [place] ? ? ? Est GFR >60 ? Final [facility] mL/min Reference [place] /1.73 Laborato harshil: M2 [address], [place] 11/03/2011 TSH, Serum or ? Tsh 0.83 (0.4-4.0) [facility]/mL mIU/mL Reference Laboratori es: [address], [place] 08/25/2011 TSH, Serum or ? Tsh 0.67 (0.4-4.0) Fin [facility] Plasma mIU/mL mIU/mL Reference Laboratori es: [address], [place] 08/25/2011 AST/SGOT ? Ast 23 U/L (0-38) U/L Final [facility] (Aspartate Refere nce Aminotransfera La boratories: se), Serum or [address], [place] 08/25/2011 ALT (Alanine ? Alt 41 U/L (0-41) U/L Fin al [facility] Aminotransfera Re ference se), Serum or Lab oratories: Plasma [address], [place] 08/25/2011 BMP, Serum or ? Glucose 95 (70-99) Fin [facility] Plasma mg/dL mg/dL Reference Laboratori es: [address], [place] ? ? ? Bun 19 (6-20) Final [facility] mg/dL mg/dL Reference Laboratori es: [address], [place] ? ? ? Creatinine 1.0 (0.7-1.2) Final [facility] mg/dL mg/dL Reference Laboratori es: [address], [place] ? ? ? Sodium 141 (133-145) Final [facility] mmol/L mmol/L Reference Laboratori es: [address], [place] ? ? ? Potassium 4.2 (3.6-5.2) Final [place] [facility] mmol/L mmol/L Reference Laboratori es: [address], [place] ? ? ? Chloride 103 (98-107) Final [facility] mmol/L mmol/L Reference Laboratori es: [address], [place] ? ? ? Bicarbonate 29 (22-29) Final [place] [facility] mmol/L mmol/L Reference Laboratori es: [address], [place] ? ? ? Anion Gap 9 (4-17) Final [facility] Reference Laboratori es: [address], [place] ? ? ? Calcium 9.5 (8.6-10.5) Final [place] [facility] mg/dL mg/dL Reference Laboratori es: [address], [place] ? ? ? Est GFR Non >60 ? Final [facility] mL/min Reference [place] /1.73 Laborato harshil: M2 [address], [place] ? ? ? Est GFR >60 ? Final [facility] mL/min Reference [place] /1.73 Laborato harshil: M2 [address], [place] 02/03/2011 ESR ? Sedimentation 2 (0-15) Final [facility] (Erythrocyte Rate mm/HR mm/HR Refe rence Sedimentation Lab oratories: Rate), Blood [address], [place] 02/03/2011 CBC W/ Auto ? Wbc 6.9 (4.0-11.0) Thelma l [facility] Diff K/mm3 K/mm3 Reference Laboratori es: [address], [place] ? ? ? Rbc 5.15 (4.70-6.10 Final [facility] M/mm3 ) M/mm3 Reference Laboratori es: [address], [place] ? ? ? Hgb 15.3 (14.0-18.0 Final [facility] gm/dL ) gm/dL Reference Laboratori es: [address], [place] ? ? ? Hct 44.9 % (42.0-52.0 Final [facility] ) % Reference Laboratori es: [address], [place] ? ? ? Mcv 87.2 (80.0-94.0 Final [facility] fL ) fL Reference Laboratori es: [address], [place] ? ? ? Mch 29.7 (27.0-34.0 Final [facility] pg ) pg Reference Laboratori es: [address], [place] ? ? ? Mchc 34.1 % (33.0-37.0 Final [facility] ) % Reference Laboratori es: [address], [place] ? ? High Rdw 15.0 % (11.6-14.8 Final [facility] ) % Reference Laboratori es: [address], [place] ? ? ? Plt 238 (150-460) Final [facility] K/mm3 K/mm3 Reference Laboratori es: [address], [place] ? ? ? Mpv 10.6 (9.4-12.4) Final [facility] fL fL Reference Laboratori es: [address], [place] ? ? ? Neut 52.6 % (44-76) % Final [facility] Reference Laboratori es: [address], [place] ? ? ? Lymph 37.1 % (15-43) % Final [facility] Reference Laboratori es: [address], [place] ? ? High Monocyte 8.3 % (2-8) % Final [facility] Reference Laboratori es: [address], [place] ? ? ? Eo 1.9 % (0-6) % Final [facility] Reference Laboratori es: [address], [place] ? ? ? Baso 0.1 % (0-2) % Final [facility] Reference Laboratori es: [address], [place] ? ? ? Neut # 3.6 (1.3-7.0) Final [facility] K/mm3 K/mm3 Reference Laboratori es: [address], [place] ? ? ? Lymph # 2.6 (0.8-3.1) Final [facility] K/mm3 K/mm3 Reference Laboratori es: [address], [place] ? ? ? Whatcom# 0.6 (0.4-1.3) Final [facility] K/mm3 K/mm3 Reference Laboratori es: [address], [place] ? ? ? Eo # 0.1 (0.0-0.4) Final [facility] K/mm3 K/mm3 Reference Laboratori es: [address], [place] ? ? ? Baso # 0.0 (0.0-0.1) Final [facility] K/mm3 K/mm3 Reference Laboratori es: [address], [place] Past Encounters 05/03/2022 Migraine; Insomnia Cole Solis PA-C: [address] [phone], Ph. 11/29/2021 Adult Health Examination; Varicella Vacc ination; Clostridium Difficile Colitis; Chronic Pain; Hyperlipidemia; Migraine; Obstructive Sleep Apnea Syndrome; Prediabetes; Gastroesophageal Reflux Disease; Myles dy Mass Index 30+ - Obesity; Pain of Rig ht Knee Region; History of Polyp of Colon Cole Solis PA-C: [address] [phone], Ph. 11/03/2021 Cole Solis PA-C: [address] [phone], Ph. 05/20/2021 Migraine; Right Inguinal Pain; Needs Inf luenza Immunization Baltazar Poole MD: [address] [phone], Ph. Social History Tobacco Smoking Status Never Smoker Vaccine List Vaccine Type COVID-19, mRNA, LNP-S, [...] 08/05/2020 zoster recombinant 0.5 mL 0.5 mL Plan of Care Patient Goals Patient Target Excess Body Weight Loss % 5 LDL Direct yearly LDL Direct <100 Pt agrees to follow low fat diet, avoid saturated fats , decrease carbohydrate intake to 45 - 50 gm per meal , pt agrees to develop a regular pattern of exercise such as walking 30 minutes a day 3 time s a week, Pt will keep a record of exerc ise and activity level Patient preferences and goals incorporated in plan and updated/modified as needed to reflect progress toward goal. Pt advised and agrees to work on self-mo nitoring behaviors; begin an appropriate diet for weight loss (such as a low carbohydrate diet), to do moderate exercise (such as walking) for approximately 150 m inutes per week; and to identify desirab le and timely rewards that will reinforce achievement of specific weight loss goals. Reminders Provider Appointments None recorded. ? ? Lab None recorded. ? ? Referral None recorded. ? ? Procedures None recorded. ? ? Surgeries None recorded. ? ? Imaging None recorded. ? ? Vitals 11/29/2021 04:00PM PE EST Height Weight BMI Blood Pressure 5 ft 10.75 in 227 lbs 16 oz 32 kg/m2 108/72 mm[Hg] 05/20/2021 08:30AM FOLLOW UP Height Weight BMI Blood Pressure 5 ft 10.75 in 223 lbs 31.3 kg/m2 130/69 mm[Hg] 11/20/2020 09:15AM FOLLOW UP Height Weight BMI Blood Pressure 5 ft 10.75 in 223 lbs 31.3 kg/m2 109/70 mm[Hg] 09/16/2020 04:00PM PE EST Height Weight BMI Blood Pressure 5 ft 10.75 in 227 lbs 16 oz 32 kg/m2 132/84 mm[Hg] 02/03/2020 03:30PM FOLLOW UP Height Weight BMI Blood Pressure 5 ft 10.75 in 232 lbs 2 oz 32.6 kg/m2 115/75 mm[Hg] 10/31/2019 03:00PM [id number] Height 5 ft 10.75 in 07/30/2019 03:30PM FOLLOW UP Height Weight BMI Blood Pressure 5 ft 10.75 in 228 lbs 2 oz 32 kg/m2 117/72 mm[Hg] 03/28/2019 03:30PM FOLLOW UP Height Weight BMI Blood Pressure 5 ft 10.75 in 225 lbs 8 oz 31.7 kg/m2 116/71 mm[Hg] 12/24/2018 03:15PM FOLLOW UP Height Weight BMI Blood Pressure 5 ft 10.75 in 228 lbs 16 oz 32.2 kg/m2 142/78 mm[Hg] 11/12/2018 04:00PM PE EST Height Weight BMI Blood Pressure 5 ft 10.75 in 231 lbs 8 oz 32.5 kg/m2 120/74 mm[Hg] 05/07/2018 11:00AM UV30 Height Weight BMI Blood Pressure 5 ft 10.75 in 236 lbs 2 oz 33.2 kg/m2 125/75 mm[Hg] 11/02/2017 09:30AM PE EST Height Weight BMI Blood Pressure 5 ft 10.75 in 245 lbs 16 oz 34.6 kg/m2 145/88 mm[Hg] 09/08/2017 11:30AM FOLLOW UP Height Weight BMI Blood Pressure 5 ft 10.75 in 243 lbs 8 oz 34.2 kg/m2 09/02/2017 12:15PM ANY 15 Height Weight BMI Blood Pressure 5 ft 10.75 in 248 lbs 34.8 kg/m2 126/62 mm[Hg] 08/03/2017 03:15PM FOLLOW UP Height Weight BMI Blood Pressure 5 ft 10.75 in 247 lbs 3 oz 34.7 kg/m2 03/23/2017 03:15PM FOLLOW UP Height Weight BMI Blood Pressure 5 ft 10.75 in 234 lbs 8 oz 32.9 kg/m2 119/72 mm[Hg] 09/20/2016 03:00PM PE EST Height Weight BMI Blood Pressure 5 ft 10.75 in 245 lbs 8 oz 34.5 kg/m2 114/78 mm[Hg] 02/22/2016 03:15PM FOLLOW UP Height Weight BMI Blood Pressure 5 ft 10.75 in 235 lbs 6.4 oz 33.1 kg/m2 138/97 mm[Hg] 09/15/2015 03:00PM PE EST Height Weight BMI Blood Pressure 5 ft 10.75 in 244 lbs 3.2 oz 34.3 kg/m2 116/67 mm[Hg] 06/24/2014 03:15PM PE EST Height Weight BMI Blood Pressure 5 ft 10.75 in 229 lbs 3.2 oz 32.2 kg/m2 134/77 mm[Hg] 01/08/2014 Height Weight Blood Pressure 5 ft 10.75 in 240 lbs 12.8 oz 122/68 mm[Hg] 10/18/2013 Height Weight Blood Pressure 5 ft 10.75 in 245 lbs 140/82 mm[Hg] 06/13/2013 Height Weight Blood Pressure 5 ft 10.75 in 243 lbs 117/72 mm[Hg] 02/15/2013 Height Weight Blood Pressure 5 ft 10.75 in 241 lbs 116/78 mm[Hg] 12/11/2012 Height Weight Blood Pressure 5 ft 10.75 in 244 lbs 124/87 mm[Hg] 04/20/2012 Height Weight Blood Pressure 5 ft 10.75 in 239 lbs 126/82 mm[Hg] 09/26/2011 Height Weight Blood Pressure 5 ft 10.75 in 242 lbs 134/71 mm[Hg] 08/25/2011 Height Weight Blood Pressure 5 ft 10.75 in 245 lbs 126/78 mm[Hg] 06/21/2011 Height Weight Blood Pressure 5 ft 10.75 in 246 lbs 128/86 mm[Hg] 02/03/2011 Height Weight Blood Pressure 5 ft 10.75 in 243 lbs 118/78 mm[Hg] 06/15/2010 Weight Blood Pressure 234 lbs 112/70 mm[Hg] 05/15/2009 Height Weight Blood Pressure 5 ft 10.75 in 238 lbs 12.8 oz 122/74 mm[Hg] 03/10/2009 Blood Pressure 124/80 mm[Hg] 11/03/2008 Height Weight Blood Pressure 5 ft 10.75 in 247 lbs 122/80 mm[Hg] 10/10/2008 Weight Blood Pressure 245 lbs 12.8 oz 122/82 mm[Hg] 06/16/2008 Weight Blood Pressure 248 lbs 112/70 mm[Hg] 05/15/2008 Weight Blood Pressure 244 lbs 130/90 mm[Hg] 03/21/2008 Height Weight Blood Pressure 5 ft 10.75 in 237 lbs 110/70 mm[Hg] 12/06/2007 Height Weight Blood Pressure 5 ft 10.75 in 247 lbs 9.6 oz 136/90 mm[Hg] 09/03/2007 Weight Blood Pressure 251 lbs 142/98 mm[Hg] 07/04/2007 Weight Blood Pressure 243 lbs 9.6 oz 112/70 mm[Hg]
--- NOTE | 2022-06-01 12:38 | ED_ITS ---
HPI - Extremity Problem General Chief complaint: Extremity Problem Stated complaint: L Thumb Injury Work 06/01/22 Time Seen by Provider: 06/01/22 11:51 Source: patient Mode of arrival: ambulatory Limitations: no limitations History of Present Illness HPI Narrative: Patient comes to the emergency room complaining of left thumb pain. Earlier today at work, patient fell backwards into a stone while trying to pull e quipment. Patient did not sustain any other injuries. Patient is not on blood thinners. Patient states that he is up-to-date with his Tdap Related Data Previous Rx's Medication Instructions Recorded cephalexin 500 mg capsule (Keflex) 500 mg PO Q6H 10 days #40 caps 08/05/20 doxycycline monohydrate 100 mg 100 mg PO BID 10 days #20 caps 08/05/20 capsule oxycodone-acetaminophen 5 mg-325 1 tab PO Q6H PRN pain #10 tabs 08/05/20 mg tablet (Percocet) ondansetron 4 mg disintegrating 4 mg PO Q8H PRN nausea and 11/02/21 tablet vomiting #20 tabs vancomycin 125 mg capsule 125 mg PO QID 10 days #40 caps 11/02/21 cefdinir 300 mg capsule 300 mg PO BID #14 caps 06/01/22 ibuprofen 600 mg tablet 600 mg PO TID PRN pain #20 tabs 06/01/22 tramadol 50 mg tablet 50 mg PO BID PRN pain #7 tabs 06/01/22 Allergies Allergy/AdvReac Type Severity Reaction Status Date / Time No Known Allergies Allergy Unverified 04/09/20 16:18 [No Known Allergies*] Review of Systems Review of Systems: Constitutional : No Weight loss, No Fever, No Chills, No Night Sweats, No Fatigue, No Malaise ENT/Mouth : No Hearing loss, No Ear Pain, No Nasal Congestion, No Sinus Pain, No Hoarseness, No sore throat, No Rhinorrhea, No Swallowing Difficulty Eyes: No Eye Pain, No Swelling, No Redness, No Foreign Body, No Discharge, No Vision Changes Cardiovascular : No Chest Pain, No SOB, No Dyspnea on Exertion, No Orthopnea, No Edema, No Palpitations Respiratory : No Cough, No Sputum, No Wheezing, No Smoke Exposure, No Dyspnea Gastrointestinal : No Nausea, No Vomiting, No Diarrhea, No Constipation, No abdominal Pain, No Hematochezia, No Melena Genitourinary : no irregular bleeding, No Dysuria, No Urinary Frequency, No Hematuria, No Urinary Incontinence, No Urgency, No Flank Pain, No Urinary Flow Changes, No Hesitancy Musculoskeletal : Complaining of left thumb pain and deformity, No Myalgias, No Joint Swelling Skin : No Skin Lesions, No rash Neuro : No Weakness, No Numbness, No Paresthesias, No Loss of Consciousness, No Dizziness, No Headache Psych : No Anxiety/Panic, No Depression, No SI/HI/AH/VH, No Social Issues, Heme/Lymph: No Bruising, No Bleeding,No Lymphadenopathy Endocrine : No Polyuria, No Polydipsia, No Temperature Intolerance PMFSH Past Medical History Medical History Hyperlipidemia Migraine Surgical History H/O hernia repair Social History Social History (Updated 11/02/21 @ 07:57 by Deepika Ng DO) Alcohol intake: never Patient Tobacco Use Status: Never used Tobacco Advance Directives: No Advance Directives Information Provided: No Physical Exam Vital Signs: Vital Signs: Last Vital Signs Temp 98.2 F 06/01/22 11:20 Pulse 78 06/01/22 11:20 Resp 12 06/01/22 11:20 BP 117/73 06/01/22 11:20 Pulse Ox 96 06/01/22 11:20 O2 Del Method 06/01/22 11:20 BMI result Body Mass Index 32.1 Const: Other: Appearance: Alert. Oriented X3. No acute distress. Eyes: Pupils equal, round and reactive to light. ENT: Pharynx normal. Neck: Normal inspection. Neck supple. No lymph nodes noted. No crepitus CVS: Normal heart rate and rhythm. Pulses normal. Normal S1 and S2 Respiratory: No respiratory distress. Breath sounds normal. No Wheezing. No rales Abdomen: Soft and nontender. No rigidity. No distention. Skin: Skin warm and dry. Normal skin color. Normal skin turgor. Extremities: No lower extremity edema. Left thumb has an obvious deformity, to palpation but is able to flex and extend the thumb Neuro: Oriented X 3. No motor deficit. No sensory deficit. Moving all extremities. No slurred speech. CN 2 through 12 grossly intact Psych: calm, cooperative, normal affect Course Course Course Narrative: Patient's thumb was reduced. Patient's finger was infiltrated with 2% lidocaine. Patient also received stitches to the palmar aspect of the hand. The laceration on the palmar aspect of the hand is likely secondary to an exposed fracture. Patient was wearing gloves and gloves did not break. I discussed the above mention with Orthopedics, recommendations antibiotics, splint thumb and follow-up with orthopedics. Patient received 1 dose of IM cefazolin. Recommendations per Orthopedics, on continue p.o. antibiotics IMPRESSION: Dislocated IP joint is noted with probable dorsal chip fracture off the base of the distal phalanx. Patient's finger was reduced. X-ray reviewed by myself shows improved alignment. Official report pending. Discharge Plan Discharge Clinical Impression: Open dislocation of thumb Patient Disposition: Home, Self-Care Instructions: Thumb Fracture (ED), Finger Dislocation (ED) Additional Instructions: Please follow-up with orthopedics on Monday. Please call today to schedule an appointment. Please follow-up with your primary care physician tomorrow. If you have any worsening or new symptoms, please return to the emergency room or call 911 Prescriptions: New cefdinir 300 mg capsule 300 mg PO BID Qty: 14 0RF ibuprofen 600 mg tablet 600 mg PO TID PRN (Reason: pain) Qty: 20 0RF tramadol 50 mg tablet 50 mg PO BID PRN (Reason: pain) Qty: 7 0RF No Action oxycodone-acetaminophen [Percocet] 5-325 mg tablet 1 tab PO Q6H PRN (Reason: pain) Qty: 10 0RF Rx Instructions: May be partially filled doxycycline monohydrate 100 mg capsule 100 mg PO BID 10 Days Qty: 20 0RF cephalexin [Keflex] 500 mg capsule 500 mg PO Q6H 10 Days Qty: 40 0RF ondansetron 4 mg tablet,disintegrating 4 mg PO Q8H PRN (Reason: nausea and vomiting) Qty: 20 0RF vancomycin 125 mg capsule 125 mg PO QID 10 Days Qty: 40 0RF Referrals: Chinyere Gray PA-C [Physician [employer] Mach[employer] Supervisor] - 06/06/22 9:00 am (Exposed left thumb fracture)
== END 2022-06-01 13:51 | disposition home or self-care (01) ==
PROVIDERS: Emergency Provider Emergency Medicine; PCP Pediatrics
DX: S63.105A Unspecified dislocation of left thumb, initial encounter (principal); M79.642 Pain in left hand; Y29.XXXA Contact with blunt object, undetermined intent, initial encounter; Y93.9 Activity, unspecified; Y92.9 Unspecified place or not applicable; Y99.0 Civilian activity done for income or pay; Z79.899 Other long term (current) drug therapy
CPT/HCPCS: 26700; 73140; 96372; 99283; 99284; J0690

== ENCOUNTER → 2022-06-08 08:45 | Outpatient (BNVA) | payer OTHER, BC, SELFPAY | PROVIDERS: PCP Pediatrics; Visit Provider Physician Assistant | DX: S63.125A Dislocation of interphalangeal joint of left thumb, initial encounter (principal); W18.09XA Striking against other object with subsequent fall, initial encounter; Y93.H3 Activity, building and construction; Y92.89 Other specified places as the place of occurrence of the external cause; Y99.8 Other external cause status; Z48.02 Encounter for removal of sutures | CPT/HCPCS: 99202 ==

== ENCOUNTER 2022-06-09 08:18 | Outpatient (RCR) | payer OTHER, BC, SELFPAY ==
--- NOTE | 2022-06-09 15:27 | MHC.OT.EP ---
[address] [phone] Occupational Therapy Plan of Care Date of Evaluation: 06/09/22 Diagnosis: Dislocation left thumb Assessment: Yannick is 9 days s/p open dislocation of left thumb IP jt . Sutures were removed yesterday and steri strips with applied yesterday at [facility] . This am pt presents with no steri strips , open wound with proud flesh noted , no drainage. Pt reports the steri strips peeled off. Thumb edema noted, and stiff thumb. Left dominant hand FDT shows moderately functional dexterity Pt was educated in wound care, including sterile non woven pad for protection and practice with ROM and dexterity activity for his HEP Pt states he prefers working on this at home and follow up with Catalino Gray PA-C next week Frequency and Duration: The patient will be seen Short Term Goals: NA Senior Care Goals: NA Treatment Plan: Pt declining OT at this time , will follow up with [facility] next week Electronically Signed By: Catherine Johansen OT CHT CLT Please Sign and return to therapist. Thank you once again for your referral.
== END 2022-06-09 15:29 | disposition home or self-care (01) ==
LOC: HO.OT 08:18
PROVIDERS: PCP Pediatrics; Visit Provider Physician Assistant
DX: S63.105A Unspecified dislocation of left thumb, initial encounter (principal)
CPT/HCPCS: 97110; 97166

== ENCOUNTER → 2022-06-15 14:37 | Outpatient (BNVA) | payer OTHER, BC, SELFPAY | PROVIDERS: PCP Pediatrics; Visit Provider Physician Assistant | DX: S63.105A Unspecified dislocation of left thumb, initial encounter (principal) | CPT/HCPCS: 99212 ==

== ENCOUNTER → 2022-07-08 09:24 | Outpatient (BNVA) | payer OTHER, BC, SELFPAY | PROVIDERS: PCP Pediatrics; Visit Provider Physician Assistant | DX: S63.105D Unspecified dislocation of left thumb, subsequent encounter (principal) | CPT/HCPCS: 99212 ==

== ENCOUNTER 2022-08-03 17:26 | Outpatient (REF) | payer OTHER, BC, SELFPAY ==
--- NOTE | ~2022-08-03 | XR_ITS ---
EXAMINATION: XR HAND, LEFT CLINICAL INFORMATION: Left hand pain. COMPARISON: 06/01/2022 TECHNIQUE: PA, lateral, and oblique views of the left hand. FINDINGS: Mild osteoarthritis throughout the MCP and interphalangeal joints. No acute fracture or malalignment. XR/XR hand LT min 3V IMPRESSION: Mild osteoarthritis. No acute abnormality.
== END 2022-08-03 17:27 | disposition home or self-care (01) ==
LOC: HO.HOSX 17:26
PROVIDERS: Visit Provider Orthopaedic Surgery
DX: S63.105A Unspecified dislocation of left thumb, initial encounter (principal); X58.XXXA Exposure to other specified factors, initial encounter; Y93.9 Activity, unspecified; Y92.9 Unspecified place or not applicable; Y99.9 Unspecified external cause status
CPT/HCPCS: 73130; 99212

== ENCOUNTER 2025-06-23 16:31 | Emergency (ER) | payer OTHER, BC, SELFPAY ==
[2025-06-23 16:46] VITALS: BP 102/69; PULSE 80; RESP 18; TEMP 36.3; O2SAT 98; BMI 29.3
--- NOTE | 2025-06-23 16:46 | ED.GENADULT ---
HPI - General Adult General Chief complaint: Abdominal Pain Stated complaint: Stomach Pain Related Data Home Medications ?Medication ?Instructions ?Recorded ?Confirmed hydrocodone 5 mg-acetaminophen 325 1 tab PO BID PRN 06/08/22 mg tablet pravastatin 20 mg tablet 20 mg PO DAILY 06/08/22 rizatriptan 10 mg tablet 10 mg PO DAILY PRN 06/08/22 zolpidem 10 mg tablet 10 mg PO BEDTIME PRN 06/08/22 Previous Rx's ?Medication ?Instructions ?Recorded cefdinir 300 mg capsule 300 mg PO BID #14 caps 06/01/22 ibuprofen 600 mg tablet 600 mg PO TID PRN pain #20 tabs 06/01/22 Allergies Allergy/AdvReac Type Severity Reaction Status Date / Time No Known Allergies (No Known Allergy Verified 06/23/25 16:47 Allergies*) [facility] Past Medical History Medical History Hyperlipidemia Migraine Surgical History H/O hernia repair Social History Social History Alcohol intake: never Patient Tobacco Use Status: Never used Tobacco Advance Directives: No Advance Directives Information Provided: No Do you have a plan to hurt others: No Plan Current occupational status: employed 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 Patient is a 65y/o M presenting with complaint of epigastric pain which woke him from sleep at 4 am, vomiting since 7am. Denies diarrhea. Plan: EKG, labs, viral serology Patient left the emergency department before myself or any of the other clinicians could review or explain physical exam findings, test results, need or lack there of for additional testing, treatment options, or a treatment plan. Medical Decision Making Lab Data 06/23/25 17:03 06/23/25 17:03 Labs: Lab Results 06/23/25 06/24/25 Range/Units 17:03 00:43 WBC 7.9 (4.8-10.8) X10*3/uL RBC 5.42 (4.60-5.80) X10*6/uL Hgb 15.7 (14.0-18.0) g/dl Hct 47.8 (42.0-52.0) % MCV 88.2 (80.0-98.0) fL MCH 29.0 (27.0-33.0) pg MCHC 32.8 (31.0-36.0) g/dl RDW 14.0 (11.0-16.0) % Plt Count 230 D (160-400) X10*3/uL MPV 10.0 (9.4-12.4) fL Immature Gran % (Auto) 0.4 (0.0-0.4) % Neut % (Auto) 73.3 H (45-73) % Lymph % (Auto) 18.2 L (20-40) % [place] % (Auto) 7.5 (2-11) % Eos % (Auto) 0.5 (0-4) % Baso % (Auto) 0.1 (0-2) % Lymph # (Auto) 1.4 (1.2-4.9) X10*3/uL [place] # (Auto) 0.6 (0.1-1.2) X10*3/uL Eos # (Auto) 0.0 (0.0-0.4) X10*3/uL Baso # (Auto) 0.0 (0.0-0.2) X10*3/uL Abs Immat Gran (auto) 0.03 (0.00-0.03) X10*3/uL Absolute Neuts (auto) 5.8 (2.0-8.3) x10*3/uL Absolute Nucleated RBC 0.000 (0.0-0.012) X10*3/uL Nucleated RBC % (auto) 0.0 (0.0-0.2) /100WBC Sodium 143 (135-145) mmol/L Potassium 4.1 (3.3-5.1) mmol/L Chloride 108 (96-108) mmol/L Carbon Dioxide 28 (22-29) mmol/L Anion Gap 11 L (12-20) BUN 11 (9-16) mg/dL Creatinine 1.01 (0.5-1.4) mg/dL Estim Creat Clear Calc 87.0 Estimated GFR > 60 Random Glucose 113 (60-115) mg/dL Calcium 10.1 D (8.4-10.2) mg/dL Total Bilirubin 0.8 (0.0-1.0) mg/dL AST 26 (5-37) U/L ALT 27 (0-40) U/L Alkaline Phosphatase 63 (39-117) U/L Troponin I High Sens < 2.7 (<3.5-35.0) ng/L Total Protein 7.2 (6.5-8.0) g/dL Albumin 4.8 (3.5-5.0) g/dL Lipase 11 (8-78) U/L Urine Color Dark Yellow Urine Appearance Clear Urine pH 5.5 (5.0-9.0) Ur Specific [place] 1.025 (1.005-1.025) Urine Protein Negative (Neg-Trace) mg/dL Urine Glucose (UA) Negative (Negative) mg/dL Urine Ketones Trace (Negative) mg/dL Urine Blood Negative (Negative) Urine Nitrite Negative (Negative) Ur Leukocyte Esterase Negative (Negative) Urine RBC 0-2 (0-2) /HPF Urine WBC 0-5 (0-5) /HPF Ur Squamous Epith Cells 0-2 (0-2) /HPF Urine Bacteria None Seen (None Seen) Hyaline Casts 0-2 (0-2) /LPF Influenza Type A (PCR) NEGATIVE (Negative) Influenza Type B (PCR) NEGATIVE (Negative) RSV RNA Qual (PCR) NEGATIVE (Negative) SARS-CoV-2 RNA (RT-PCR) NEGATIVE (Negative) Discharge Plan Discharge Clinical Impression: Abdominal pain Patient Disposition: Left W/O Completing Treatment Prescriptions: No Action cefdinir 300 mg capsule 300 mg PO BID Qty: 14 0RF ibuprofen 600 mg tablet 600 mg PO TID PRN (Reason: pain) Qty: 20 0RF rizatriptan 10 mg tablet 10 mg PO DAILY PRN pravastatin 20 mg tablet 20 mg PO DAILY zolpidem 10 mg tablet 10 mg PO BEDTIME PRN hydrocodone-acetaminophen 5-325 mg tablet 1 tab PO BID PRN Discharge Date/Time: 06/24/25 02:21
--- NOTE | 2025-06-23 16:47 | ECG_ITS ---
Test Reason : EPIGASTRIC PAIN Blood Pressure : */* mmHG Vent. Rate : 93 BPM Atrial Rate : 93 BPM P-R Int : 164 ms QRS Dur : 80 ms QT Int : 346 ms P-R-T Axes : 26 -48 21 degrees QTcB Int : 430 ms Normal sinus rhythm Left axis deviation Low voltage QRS Inferior infarct , age undetermined Abnormal ECG When compared with ECG of 09-Dec-2018 16:01, Minimal criteria for Anterior infarct are no longer Present Referred By: Bertha Miramontes Electronically Signed By: LORA LOPES
[2025-06-23 17:18] LABS: MANUAL DIFF FLAG NO
[2025-06-23 17:21] LABS: Hematocrit 47.8 % (42.0-52.0); Hemoglobin 15.7 g/dl (14.0-18.0); Imm Gran Abs Auto 0.03 X10*3/uL (0.00-0.03); Imm Gran Pct Auto 0.4 % (0.0-0.4); Lymphocytes Absolute Auto 1.4 X10*3/uL (1.2-4.9); Mean Corpuscular HGB Conc 32.8 g/dl (31.0-36.0); Mean Corpuscular Hemoglobin 29.0 pg (27.0-33.0); Mean Corpuscular Volume 88.2 fL (80.0-98.0); NRBC Abs Auto 0.000 X10*3/uL (0.0-0.012); NRBC Pct Auto 0.0 /100WBC (0.0-0.2); Platelet Count 230 X10*3/uL (160-400); Red Blood Count 5.42 X10*6/uL (4.60-5.80); White Blood Count 7.9 X10*3/uL (4.8-10.8)
[2025-06-23 17:33] LABS: Alanine Aminotransferase 27 U/L (0-40); Albumin Level 4.8 g/dL (3.5-5.0); Alkaline Phosphatase 63 U/L (39-117); Anion Gap 11 (12-20); Aspartate Amino Transferase 26 U/L (5-37); Blood Urea Nitrogen 11 mg/dL (9-16); Calcium 10.1 mg/dL (8.4-10.2); Carbon Dioxide 28 mmol/L (22-29); Chloride 108 mmol/L (96-108); Creatinine Clr Calc Pharmacy 87.0; Estimated Glomerular Filt Rate > 60; Lipase 11 U/L (8-78); Potassium 4.1 mmol/L (3.3-5.1); Sodium 143 mmol/L (135-145); Total Protein 7.2 g/dL (6.5-8.0)
[2025-06-23 17:41] LABS: Troponin-I High Sensitivity < 2.7 ng/L (<3.5-35.0)
[2025-06-23 17:58] LABS: Resp Syncy Virus RNA Qual PCR NEGATIVE (Negative); SARS COV2 PCR INHOUSE NEGATIVE (Negative)
[2025-06-24 00:35] VITALS: BP 111/74; PULSE 72; RESP 16; TEMP 36.8; O2SAT 99
[2025-06-24 01:13] LABS: Appearance Urine Clear; Glucose Urine UA Negative (Negative); PH 5.5 (5.0-9.0); Specific Gravity - Urine 1.025 (1.005-1.025)
--- OUTSIDE RECORDS SUMMARY | 2025-06-24 02:22 | XMS_ITS | Data Portability ---
Author Organization [facility], Main Office Address [address] [facility] [address] [place] [id number] Care Team Providers Care Cafeteria Associate Name Role Phone FRANCISCO EGAN Cotton Picker ELTON OZUNA Referring Provider MARCIO CARDONA Referring Provider RICHARD SOLIS Primary Care Provider [phone] KAUSHIK MIKE Neurologist MICHELE GOOD General Surgeon Assessment Encounter Date Assessment Date Assessment LastModified by Organization Details LastModified Time 04/30/2025 04/30/2025 Discussed with patient the signs/symptom s warranted for a return to office visit and/or an ER visit. Patient understood and agreed with the plan. Not available 04/30/2025 09:56:21 Plan of Treatment Reminders Order Date Submit Date Provider Last Modified By Organization Details Last Modified Time Details Appointments FOLLO W UP 30MIN 2025 04:00P Chaya Solis PA-C Not available Not available Not available Lab HbA1c (hemo globi n A1c), blood 2024 025 NELDA [facility] (Centralized Electronic Ordering - All Locations), Patient Can Go To The Location Of Their Choice, [id number] 06/15/2025 08:07:34 lipid panel , serum 2024 025 NELDA [facility] (Centralized Electronic Ordering - All Locations), Patient Can Go To The Location Of Their Choice, [id number] 06/15/2025 08:07:33 CMP, serum or plasm a 06/2024 NELDA [facility] (Centralized Electronic Ordering - All Locations), Patient Can Go To The Location Of Their Choice, 06/15/2025 08:07:32 CK (cuauhtemoc whyte e), total , serum 2024 NELDA [facility] (Centralized Electronic Ordering - All Locations), Patient Can Go To The Location Of Their Choice, 06/15/2025 08:07:33 TSH, ultra -sens itive , serum 2024 NELDA [facility] (Centralized Electronic Ordering - All Locations), Patient Can Go To The Location Of Their Choice, 06/15/2025 08:07:35 vitam in D, 25-hy droxy , total , serum 2024 NELDA [facility] (Centralized Electronic Ordering - All Locations), Patient Can Go To The Location Of Their Choice, 06/15/2025 08:07:35 PSA, total , serum or plasm a 2024 NELDA [facility] (Centralized Electronic Ordering - All Locations), Patient Can Go To The Location Of Their Choice, 06/15/2025 08:07:34 HbA1c (hemo globi n A1c), blood 2023 [email or web address] [facility] (Centralized Electronic Ordering - All Locations), Patient Can Go To The Location Of Their Choice, 01/06/2025 11:14:39 BMP, serum or plasm a 2023 [email or web address] [facility] (Centralized Electronic Ordering - All Locations), Patient Can Go To The Location Of Their Choice, 01/06/2025 11:14:39 lipid panel , serum 2023 [email or web address] [facility] ([facility]ized Electronic Ordering - All Locations), Patient Can Go To The Location Of Their Choice, 01/06/2025 11:14:38 PSA, serum or plasm a - Scree kannan 2023 NELDA [facility], [address] [place] [address], [facility], [place], [address], 12/27/2023 09:53:48 HbA1c (hemo globi n A1c), blood 2023 024 NELDA [facility], [address], [address], [place], [address], 12/27/2023 09:53:49 lipid panel , serum 2023 024 NELDA [facility] (Centralized Electronic Ordering - All Locations), Patient Can Go To The Location Of Their Choice, [id number] 12/27/2023 09:53:47 CK (crea dianelys kinas e), total , serum 2023 024 NELDA [facility] (Centralized Electronic Ordering - All Locations), Patient Can Go To The Location Of Their Choice, [id number] 12/27/2023 09:53:48 CMP, serum or plasm a 2023 024 NELDA [facility] (Centralized Electronic Ordering - All Locations), Patient Can Go To The Location Of Their Choice, [id number] 12/27/2023 09:53:46 PSA, serum or plasm a - Scree kannan 2022 023 NELDA [facility], [address], [address], [place], [address], 06/08/2023 16:15:02 HbA1c (hemo globi n A1c), blood 2022 023 [email or web address] [facility], [address], [address], [place], [address], 01/04/2024 08:59:48 BMP, serum or plasm a 2022 023 [email or web address] [facility], [address], [address], [place], [address], 01/04/2024 08:59:48 Referral nutri ciarra crowley/shyam ariza an refer ral 2024 025 Not available 01/16/2025 09:18:24 derma tolog ist refer ral 2024 025 [email or web address] [facility], [address], [address], [place], [address], 01/15/2025 16:24:35 derma tolog ist refer ral 2023 024 [email or web address] [facility], [address], [address], [place], [address], 11/29/2024 13:06:[address]/di etiti an refer ral 2023 024 [email or web address] Not available 12/15/2023 09:17:36 Procedures None recor ded. Surgeries None recor ded. Imaging XR, cervi ángela spine 2022 023 [facility] ([facility] [address] [facility], [place], [address], 06/24/2023 19:07:56 Medication Orders doxyc yclin e hycla te 100 mg capsu le 2024 025 [id number], [address], [place], [id number], 05/14/2025 05:01:24 hydro codon e 5 mg-ac etami nophe n 325 mg table t 2023 024 [facility] #[id number], [address], [place], [id number], 12/14/2023 18:07:56 rizat ripta n 10 mg table t 2022 023 [facility] # [facility], [address] [facility], [place], [address], 05/29/2024 16:07:24 triam cinol one aceto nide 0.5 % topic al cream 2022 023 [email or web address] [facility][id number], [address] [place], [place], [id number], 12/14/2023 16:10:27 Patient Targets Encounter Date Encounter Id Patient Goals Patient Target Last Modified By Organization Details Last Modified Time 12/14/2023 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 Pt advised and agrees to work on self-monitoring behaviors; begin an appropriate diet for weight loss (such as a low carbohydrate diet), to do moderate exercise (such as walking) for approximately 150 minutes per week; and to identify desirable and timely rewards that will reinforce achievement of specific weight loss goals. 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 Pt agrees to follow low fat diet, avoid saturated fats , decrease carbohydrate intake to 45 - 50 gm per meal , pt agrees to develop a regular pattern of exercise such as walking 30 minutes a day 3 times a week, Pt will keep a record of exercise and activity level Patient preferences and goals incorporated in plan and updated/modified as needed to reflect progress toward goal. pmadden Not available 01/15/2025 16:10:45 Patient Instructions Encounter Date Encounter Id Patient Instructions Last Modified By Organization Details Last Modified Time 06/08/2023 [id number] Prostate Cancer Screening pmadden Not available 06/08/2023 16:14:55 Medications (OTC , herbal therapies, supplements) reviewed and reconciled with patient and or caregiver, including potential side effects, drug interactions, instructions, and the consequences of not taking medication. Reviewed potential barriers to medication adherence, such as side effects from medication or cost of medication. Reviewed the risks and benefits of long-term use of opiate for chronic, non-malignant pain. Reviewed with patient that correction opiate use is appropriate treatment based on current medical condition and patient states that continued benefit is noted. Contract for opiate use is in place. Discussed side effects of opiates. Caution driving, reviewed fall risk, and treatment for constipation, as well as option to fill in lesser amounts. A Prescription for an Opioid has been given to the patient and I have reviewed the patients profile in [facility] Partial fill of RX is possible. pmadden Not available 06/10/2023 11:59:21 12/14/2023 [id number] Prostate Cancer Screening pmadden Not available 12/14/2023 16:59:05 A healthy lifestyle: care instructions pmadden Not available 12/14/2023 16:59:05 Well Visit 50 to 65: Care Instructions pmadden Not available 12/14/2023 16:59:05 Starting a Weight-Loss Plan: Care Instructions pmadden Not available 12/14/2023 16:59:05 Medications (OTC , herbal therapies, supplements) reviewed and reconciled with patient and or caregiver, including potential side effects, drug interactions, instructions, and the consequences of not taking medication. Reviewed potential barriers to medication adherence, such as side effects from medication or cost of medication. pmadden Not available 12/14/2023 16:39:14 05/29/2024 [id number] Medications (OTC , herbal therapies, supplements) reviewed and reconciled with patient and or caregiver, including potential side effects, drug interactions, instructions, and the consequences of not taking medication. Reviewed potential barriers to medication adherence, such as side effects from medication or cost of medication. pmadden Not available 05/29/2024 16:24:26 01/15/2025 [id number] Prostate Cancer Screening pmadden Not available 01/15/2025 16:13:23 Starting a Weight-Loss Plan: Care Instructions pmadden Not available 01/15/2025 16:13:23 Medications (OTC , herbal therapies, supplements) reviewed and reconciled with patient and or caregiver, including potential side effects, drug interactions, instructions, and the consequences of not taking medication. Reviewed potential barriers to medication adherence, such as side effects from medication or cost of medication. 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 METAB OLIC PANEL (14) glucose 103 mg/dL 70-99 above high normal Not Available [facility] ([facility]) [address] [place], [address], 12/27/2023 09:53:46 12/22/19 24 12/23/2023 COMP. METAB OLIC PANEL (14) BUN 19 mg/dL 8-27 Not Available [facility] ([facility]) [address] [place], [address], 12/27/2023 09:53:46 12/22/19 24 12/23/2023 COMP. METAB OLIC PANEL (14) creatinine 0.77 mg/dL 0.76-1 .27 Not Available [facility] ([facility]) [address] [facility], [address], 12/27/2023 09:53:46 12/22/19 24 12/23/2023 COMP. METAB OLIC PANEL (14) eGFR 101 mL/mi n/1.7 3 >59 Not Available [facility] ([facility]) [address] [place], [address], 12/27/2023 09:53:46 12/22/19 24 12/23/2023 COMP. METAB OLIC PANEL (14) BUN/creatini ne ratio 25 10-24 above high normal Not Available [facility] ([facility]) [address] [place], [address], 12/27/2023 09:53:46 12/22/19 24 12/23/2023 COMP. METAB OLIC PANEL (14) sodium 142 mmol/ L 134-14 4 Not Available [facility] ([email or web address]) [address] [facility], [place], [address], 12/27/2023 09:53:46 12/22/19 24 12/23/2023 COMP. METAB OLIC PANEL (14) potassium 4.7 mmol/ L 3.5-5. 2 Not Available [facility] ([email or web address]) [address] [facility] [place], [address], 12/27/2023 09:53:46 12/22/19 24 12/23/2023 COMP. METAB OLIC PANEL (14) chloride 107 mmol/ L 96-106 above high normal Not Available [facility] ([email or web address]) [address] [facility], [address], 12/27/2023 09:53:46 12/22/19 24 12/23/2023 COMP. METAB OLIC PANEL (14) carbon dioxide, total 22 mmol/ L 20-29 Not Available [facility] ([email or web address]) [address] [facility] [place], [address], 12/27/2023 09:53:46 12/22/19 24 12/23/2023 COMP. METAB OLIC PANEL (14) calcium 9.3 mg/dL 8.6-10 .2 Not Available [facility] ([facility]) [address] [place], [address], 12/27/2023 09:53:46 12/22/19 24 12/23/2023 COMP. METAB OLIC PANEL (14) protein, total 6.3 g/dL 6.0-8. 5 Not Available [facility] ([facility]) [address] [place], [address], 12/27/2023 09:53:46 12/22/19 24 12/23/2023 COMP. METAB OLIC PANEL (14) albumin 4.4 g/dL 3.9-4. 9 Not Available [facility] ([facility]) [address] [place], [address], 12/27/2023 09:53:46 12/22/19 24 12/23/2023 COMP. METAB OLIC PANEL (14) globulin, total 1.9 g/dL 1.5-4. 5 Not Available [facility] ([facility]) [address] [place], [address], 12/27/2023 09:53:46 12/22/19 24 12/23/2023 COMP. METAB OLIC PANEL (14) A/G ratio 2.3 1.2-2. 2 above high normal Not Available [facility] ([facility]) [address] [place], [address], 12/27/2023 09:53:46 12/22/19 24 12/23/2023 COMP. METAB OLIC PANEL (14) bilirubin, total 0.6 mg/dL 0.0-1. 2 Not Available [facility] ([facility]) [address] [facility] [place], [address], 12/27/2023 09:53:46 12/22/19 24 12/23/2023 COMP. METAB OLIC PANEL (14) alkaline phosphatase 61 IU/L 44-121 Not Available [facility] ([facility]) [address] [facility], [address], 12/27/2023 09:53:46 12/22/19 24 12/23/2023 COMP. METAB OLIC PANEL (14) AST (SGOT) 22 IU/L 0-40 Not Available [facility] ([facility]) [address] [place], [address], 12/27/2023 09:53:46 12/22/19 24 12/23/2023 COMP. METAB OLIC PANEL (14) ALT (SGPT) 19 IU/L 0-44 Not Available [facility] ([facility]) [address] [facility] [place], [address], 12/27/2023 09:53:46 12/22/19 24 12/23/2023 LIPID PANEL cholesterol, total 188 mg/dL 100-19 9 Not Available [facility] ([facility]) [address] [facility] [place], [address], 12/27/2023 09:53:47 12/22/19 24 12/23/2023 LIPID PANEL triglyceride s 84 mg/dL 0-149 Not Available [facility] ([facility]) [address] [facility] [place], [address], 12/27/2023 09:53:47 12/22/19 24 12/23/2023 LIPID PANEL HDL cholesterol 68 mg/dL >39 Not Available [facility] ([facility]) [address] [facility] [place], [address], 12/27/2023 09:53:47 12/22/19 24 12/23/2023 LIPID PANEL VLDL cholesterol ángela 15 mg/dL 5-40 Not Available [facility] ([facility]) [address] [facility], [place], [address], 12/27/2023 09:53:47 12/22/19 24 12/23/2023 LIPID PANEL LDL chol calc ([facility]) 105 mg/dL 0-99 above high normal Not Available [facility] ([facility]) [address] [facility], [place], [address], 12/27/2023 09:53:47 12/22/19 24 12/23/2023 LIPID PANEL comment: TECHNICAL AGRONOMIST Not Available [facility] ([facility]) [address] [facility], [place], [address], 12/27/2023 09:53:47 12/22/19 24 12/27/2023 PROST ATE SPECI FIC ANTIG EN prostate specific antigen 1.861 NG/mL This PSA resul t was deter mined using the [employer] lumin ometr ic immun oassa y and value s obtai domitila canno t be evalu ated inter castellanos eably with diffe rent assay metho ds or kits. This PSA resul t alone canno t be inter prete d as absol wilfredo evide nce of the prese nce or absen ce of disea se. Refer ence Range : >=40y : 97% of contr ols are <4.0. PSA level s have been repor priyanka to corre late with prost ate size. Value s >4.0 are commo n in patie nts with prost atic hyper plasi a. Not Available [facility] [address] [facility], [place], [address], 12/27/2023 09:53:48 12/22/19 24 12/23/2023 CK, TOTAL creatine kinase,total 169 U/L 41-331 Not Available [facility] ([facility]) [address] [facility], [place], [address], 12/27/2023 09:53:48 12/22/19 24 12/23/2023 HEMOG LOBIN A1C hemoglobin A1C 5.8 % 4.8-5. 6 above high normal Predi abete s: 5.7 - 6.4 Diabe britany: >6.4 Glyce jakob contr ol for adult s with diabe britany: <7.0 Not Available [facility] ([facility]) [address] [place], [address], 12/27/2023 09:53:49 06/14/20 25 06/15/2025 COMP. METAB OLIC PANEL (14) glucose 91 mg/dL 70-99 normal Not Available [facility] ([facility]) [address] [place], [address], 06/15/2025 08:07:32 06/14/20 25 06/15/2025 COMP. METAB OLIC PANEL (14) BUN 9 mg/dL 8-27 normal Not Available [facility] ([facility]) [address] [facility], [place], [address], 06/15/2025 08:07:32 06/14/20 25 06/15/2025 COMP. METAB OLIC PANEL (14) creatinine 0.89 mg/dL 0.76-1 .27 normal Not Available [facility] ([facility]) [address] [place], [address], 06/15/2025 08:07:32 06/14/20 25 06/15/2025 COMP. METAB OLIC PANEL (14) eGFR 96 mL/mi n/1.7 3 >59 normal Not Available [facility] ([facility]) [address] [place], [address], 06/15/2025 08:07:32 06/14/20 25 06/15/2025 COMP. METAB OLIC PANEL (14) BUN/creatini ne ratio 10 10-24 normal Not Available [facility] ([facility]) [address] [place], [address], 06/15/2025 08:07:32 06/14/20 25 06/15/2025 COMP. METAB OLIC PANEL (14) sodium 141 mmol/ L 134-14 4 normal Not Available [facility] ([facility]) [address] [place], [address], 06/15/2025 08:07:32 06/14/20 25 06/15/2025 COMP. METAB OLIC PANEL (14) potassium 4.6 mmol/ L 3.5-5. 2 normal Not Available [facility] ([facility]) [address] [place], [address], 06/15/2025 08:07:32 06/14/20 25 06/15/2025 COMP. METAB OLIC PANEL (14) chloride 107 mmol/ L 96-106 above high normal Not Available [facility] ([facility]) [address] [place], [address], 06/15/2025 08:07:32 06/14/20 25 06/15/2025 COMP. METAB OLIC PANEL (14) carbon dioxide, total 22 mmol/ L 20-29 normal Not Available [facility] ([facility]) [address] [place], [address], 06/15/2025 08:07:32 06/14/20 25 06/15/2025 COMP. METAB OLIC PANEL (14) calcium 9.3 mg/dL 8.6-10 .2 normal Not Available [facility] ([facility]) [address] [facility] [place], [address], 06/15/2025 08:07:32 06/14/20 25 06/15/2025 COMP. METAB OLIC PANEL (14) protein, total 6.3 g/dL 6.0-8. 5 normal Not Available [facility] ([facility]) [address] [place], [address], 06/15/2025 08:07:32 06/14/20 25 06/15/2025 COMP. METAB OLIC PANEL (14) albumin 4.3 g/dL 3.9-4. 9 normal Not Available [facility] ([facility]) [address] [facility] [place], [address], 06/15/2025 08:07:32 06/14/20 25 06/15/2025 COMP. METAB OLIC PANEL (14) globulin, total 2.0 g/dL 1.5-4. 5 Not Available [facility] ([facility]) [address] [facility] [place], [address], 06/15/2025 08:07:32 06/14/20 25 06/15/2025 COMP. METAB OLIC PANEL (14) bilirubin, total 0.8 mg/dL 0.0-1. 2 normal Not Available [facility] ([facility]) [address] [facility] [place], [address], 06/15/2025 08:07:32 06/14/20 25 06/15/2025 COMP. METAB OLIC PANEL (14) alkaline phosphatase 55 IU/L 47-123 normal Not Available [facility] ([facility]) [address] [facility] [place], [address], 06/15/2025 08:07:32 06/14/20 25 06/15/2025 COMP. METAB OLIC PANEL (14) AST (SGOT) 25 IU/L 0-40 normal Not Available [facility] ([facility]) [address] [facility] [place], [address], 06/15/2025 08:07:32 06/14/20 25 06/15/2025 COMP. METAB OLIC PANEL (14) ALT (SGPT) 27 IU/L 0-44 normal Not Available [facility] ([facility]) [address] [facility] [place], [address], 06/15/2025 08:07:32 06/14/20 25 06/15/2025 LIPID PANEL cholesterol, total 167 mg/dL 100-19 9 normal Not Available [facility] ([facility]) [address] [facility] [place], [address], 06/15/2025 08:07:33 06/14/20 25 06/15/2025 LIPID PANEL triglyceride s 67 mg/dL 0-149 normal Not Available [facility] ([facility]) [address] [place], [address], 06/15/2025 08:07:33 06/14/20 25 06/15/2025 LIPID PANEL HDL cholesterol 60 mg/dL >39 normal Not Available [facility] ([facility]) [address] [place], [address], 06/15/2025 08:07:33 06/14/20 25 06/15/2025 LIPID PANEL VLDL cholesterol ángela 13 mg/dL 5-40 Not Available [facility] ([facility]) [address] [place], [address], 06/15/2025 08:07:33 06/14/20 25 06/15/2025 LIPID PANEL LDL chol calc ([facility]) 94 mg/dL 0-99 Not Available [facility] ([facility]) [address] [place], [address], 06/15/2025 08:07:33 06/14/20 25 06/15/2025 LIPID PANEL LDL calc comment: TECHNICAL AGRONOMIST Not Available [facility] ([facility]) [address] [facility], [place], [address], 06/15/2025 08:07:33 06/14/20 25 06/15/2025 CK, TOTAL creatine kinase,total 132 U/L 41-331 normal Not Available [facility] ([facility]) [address] [place], [address], 06/15/2025 08:07:33 06/14/20 25 06/15/2025 HEMOG LOBIN A1C hemoglobin A1C 5.6 % 4.8-5. 6 normal Predi abete s: 5.7 - 6.4 Diabe britany: >6.4 Glyce jakob contr ol for adult s with diabe britany: <7.0 Not Available [facility] ([facility]) [address] [facility], [place], [address], 06/15/2025 08:07:34 06/14/20 25 06/15/2025 PROST ATE-S PECIF IC AG prostate specific Ag 1.9 NG/mL 0.0-4. 0 normal Reshma ECLIA metho dolog y. Accor ding to the Ameri can Urolo gical Assoc iatio n, Serum PSA shoul d decre ase and remai n at undet ectab le level s after radic al prost atect liza. The AUA defin es bioch emica l recur rence as an initi al PSA value 0.2 ng/mL or great er follo wed by a subse quent confi rmato ry PSA value 0.2 ng/mL or great er. Value s obtai domitila with diffe rent assay metho ds or kits canno t be used inter castellanos eably . Resul ts canno t be inter prete d as absol wilfredo evide nce of the prese nce or absen ce of william martinez se. Not Available [facility] ([facility]) [address] [facility], [place], [address], 06/15/2025 08:07:34 06/14/20 25 06/15/2025 VITAM IN D, 25-HY DROXY vitamin D, 25-hydroxy 50.0 NG/mL 30.0-1 00.0 Vitam in D defic iency has been defin ed by the Insti tute of Medic ine and an Endoc rine Socie ty pract ice guide line as a level of serum 25-OH vitam in D less than 20 ng/mL (1,2) . The Endoc rine Socie ty went on to furth er defin e vitam in D insuf ficie ncy as a level betwe en 21 and 29 ng/mL (2). 1. IOM (Inst itute of Medic ine). 2010. Dieta ry refer ence intak es for calci um and D. Brook salazar [place]: The Natio nal [facility] Press . 2. Ramon flores MF, Laila snyder [place], Kimmie off-F errar i GAITAN, et al. Evalu ation , treat ment, and preve ntion of vitam in D defic iency : an Endoc rine Socie ty clini ángela pract ice guide line. JCEM. 2010; 96(7) :1911 -30. Not Available [facility] ([facility]) [address], [place], [address], 06/15/2025 08:07:35 06/14/2006/15/2025 TSH RFX ON ABNOR MAL TO FREE T4 TSH 0.796 uIU/m L 0.450- 4.500 normal Not Available [facility] ([facility]) [address], [place], [address], 06/15/2025 08:07:35 06/09/20 23 06/09/2023 XR, cervi ángela spine , 4 or 5 view Cervic al Spine 4 or 5 Views Reason : cervic algia COMPAR MK: None. FINDIN GS: No bone lesion s or fractu res. Normal odonto id and C1/2 relati onship . Normal alignm ent and verteb ral body morpho logy. Mild multif ocal endpla te spurri ng and disc space narrow ing. End plate spurri ng most signif icant at C5-C6. Mild neural forami nal narrow ing at right C4 -C5 and left C5-C6. Normal prever tebral soft tissue s and clear lung apices . IMPRES ERNIE: Mild degene rative change s. No acute abnorm ality. I have person ally review ed the images and I agree with this report . WSN: [id number] Orderi ng Physic kurt: Prem Solis Dictat ed By: Senait Sykes DO Dictdaxa ed Date/T natan: 3:24 pm Review ed By: Avi ortiz MD, Chava Boss Signed By: Avi ortiz MD, Chava Boss Signed Date/T natan: 3:29 pm Transc ribed By: YOUNG Transc ribed Date/T natan: 2:39 pm Patien t Class: [facility] [address] , [place], [address], 12/14/2023 16:30:57 Result Notes Documentation Provider Name and Address Organization Details Recorded Time Xr, Cervical Spine, 4 Or 5 View : Cervical Spine 4 or 5 Views Reason: cervicalgia COMPARISON: None. FINDINGS: No bone lesions or fractures. Normal odontoid and C1/2 relationship. Normal alignment and vertebral body morphology. Mild multifocal endplate spurring and disc space narrowing. End plate spurring most significant at C5-C6. Mild neural foraminal narrowing at right C4 -C5 and left C5-C6. Normal prevertebral soft tissues and clear lung apices. IMPRESSION: Mild degenerative changes. No acute abnormality. I have personally reviewed the images and I agree with this report. WSN: [id number] Ordering Physician: Richard Solis Dictated By: Senait Owusu DO Dictated Date/Time: 06/09/23 3:24 pm Reviewed By: Chava Maria MD, V Signed By: Chava Maria MD, V Signed Date/Time: 06/09/23 3:29 pm Transcribed By: YOUNG Transcribed Date/Time: 06/09/23 2:39 pm Patient Class: Outpatient Richard Solis PA-C [address] [address], [place], [address], [facility] 12/14/2023 16:30:57 Problems Name Problem SNOMED Code Status Onset Date Resolution Date Notes Provider Name and Address Organization Details Recorded Time Allergic rhinitis 27537738 Completed 09/20/2016 Radha baker, [facility] [place] 7 15:21:49 Asthma 877171006 Completed 09/16/2020 Richard Solis PA-C [address], [place], [address] , [facility] 1 16:47:12 Benign prostati c hyperpla maribel 606869976 Active Not Available [facility] 2 13:14:17 Carpal tunnel syndrome 41756978 Active Not Available [facility] 2 13:14:17 Arthropa thy of joint of hand 730725286 Active Not Available [facility] 2 13:14:16 Elevated blood-pr essure reading without diagnosi s of hyperten ernie 772477862 Completed 02/03/2020 Baltazar Poole MD [address], [place], [address] , [facility] 0 16:00:10 Gastroes ophageal reflux disease 033067325 Active Not Available [facility] 2 13:14:17 Migraine 63664031 Active Not Available [facility] 2 13:14:17 Pure hypercho lesterol emia 494886962 Completed 06/24/2014 Marilyn baker [facility] 6 15:37:34 Hyperlip idemia 31790687 Active Not Available [facility] 2 13:14:17 Insomnia 891884990 Completed 06/24/2014 Richard Solis PA-C [address], [place], [address] , [facility] 3 11:57:56 Patient status finding 167767818 Completed 06/24/2014 Marilyn baker, [facility] 6 15:37:34 Obstruct mundo sleep apnea syndrome 07278912 Active Not Available [facility] 2 13:14:17 Acquired trigger finger 4822667 Active Not Available [facility] 2 13:14:17 Varicose veins of lower extremit y with inflamma tion Active Not Available [facility] 2 13:14:16 Varicose veins of lower extremit y 86955097 Completed 06/24/2014 Marilyn bakre [facility] 6 15:37:34 Acute sinusiti s 66827861 Completed 06/24/2014 Marilyn baker [facility] 6 15:37:34 Cellulit is of leg, excludin g foot 021040917 Completed 09/20/2016 Radha baker, [facility] 7 15:21:45 Chronic pain 00502828 Active Not Available [facility] 2 13:14:17 Malaise and fatigue 151660888 Completed 200702/11/2014 RECORDED 03/21/20 08 10:04AM BY ZAHIRA ABDI ON/ADDEN DUM Marilyn bass null, [facility] 6 15:37:34 Administ ration of bacteria l and viral vaccine Completed 200702/11/2014 RECORDED 03/21/20 08 10:05AM BY SAMUEL WINCHESTER, OFFICE VISIT Marilyn baker, [facility] 6 15:37:34 Malaise and fatigue 677040898 Completed 200703/03/2014 RECORDED 03/21/20 08 10:04AM BY ZAHIRA ABDI ON/ADDEN NAIMA bass null, [facility] 6 15:37:34 Administ ration of bacteria l and viral vaccine Completed 200703/03/2014 RECORDED 03/21/20 08 10:05AM BY SAMUEL WINCHESTER, OFFICE VISIT Marilyn baker, [facility] 6 15:37:34 Acute bronchit is 15230616 Completed 200802/11/2014 IMPRESSI ON: PRODUCTI VE COUGH, WHEEZING , TREAT BELOW, CALL IFNOT BETTER.; RECORDED 05/15/20 09 11:30AM BY ARCHANA GIBBS MA, ANNOTATI ON/ADDEN DUM Marilyn baker, [facility] 6 15:37:34 Bronchos pasm 8434678 Completed 200802/11/2014 IMPRESSI ON: SOUNDS LIKE NEW ISSUE, ALSO RELATED TO ALLERGIE S, 2 SONS WITH ASTHMA, TREAT BELOW, FOLLOW UP NEEDED; RECORDED 05/15/20 11:30AM BY ARCHANA GIBBS MA, ANNOTATI ON/ADDEN DUM Marilyn JonesAlessand ro null, [facility] 6 15:37:34 Chronic maxillar y sinusiti s 13562964 Completed 200802/11/2014 RECORDED 05/15/20 11:30AM BY ARCHANA GIBBS MA, ANNOTATI ON/ADDEN DUM Marilyn Wilfredo'Alessand ro null, [facility] 6 15:37:34 Acute bronchit is 35595701 Completed 200803/03/2014 IMPRESSI ON: PRODUCTI VE COUGH, WHEEZING , TREAT BELOW, CALL IFNOT BETTER.; RECORDED 05/15/20 11:30AM BY ARCHANA GIBBS MA, ANNOTATI ON/ADDEN DUM Marilyn JonesAlessand ro null, [facility] 6 15:37:34 Bronchos pasm 7183576 Completed 200803/03/2014 IMPRESSI ON: SOUNDS LIKE NEW ISSUE, ALSO RELATED TO ALLERGIE S, 2 SONS WITH ASTHMA, TREAT BELOW, FOLLOW UP NEEDED; RECORDED 05/15/20 09 11:30AM BY ARCHANA GIBBS MA, ANNOTATI ON/ADDEN DUM Marilyn JonesAlessand ro null, [facility] 6 15:37:34 Chronic maxillar y sinusiti s 79779229 Completed 200803/03/2014 RECORDED 05/15/20 09 11:30AM BY ARCHANA GIBBS MA, ANNOTATI ON/ADDEN DUM Marilyn JonesAlejelenaand ro null, [facility] 6 15:37:34 Gastroes ophageal reflux disease 666040194 Completed 201002/11/2014 RECORDED 02/04/20 11 3:56PM BY ARCHANA GIBBS MA, ANNOTATI ON/ADDEN DUM Marilyn JonesAlessand ro null, [facility] 6 15:37:34 Pure hypercho lesterol emia 285086274 Completed 201002/11/2014 RECORDED 02/04/20 11 3:56PM BY ARCHANA GIBBS MA, ANNOTATI ON/ADDEN DUM Marilyn D'Alessand ro null, [facility] 6 15:37:34 Migraine 77419570 Completed 201002/11/2014 RECORDED 02/04/20 11 3:56PM BY ARCHANA GIBBS MA, ANNOTATI ON/ADDEN DUM Marilyn D'Alessand ro null, [facility] 6 15:37:34 Alopecia 51921692 Completed 201102/11/2014 RECORDED 04/20/20 12 10:34AM BY EPHRAIM PETERSON I ANNOTATI ON/ADDEN DUM Marilyn D'Alessand ro null, [facility] 6 15:37:34 Bronchit is 95682782 Completed 201102/11/2014 RECORDED 04/20/20 12 10:34AM BY ANITHA JUAREZATI ON/ADDEN DUM Marilyn D'Alessand ro null, [facility] 6 15:37:34 Contact dermatit is 89681551 Completed 201102/11/2014 RECORDED 04/20/20 12 10:34AM BY EPHRAIM PETERSON I ANNOTATI ON/ADDEN DUM Marilyn D'Alessand ro null, [facility] 6 15:37:34 Cough 40510533 Completed 201102/11/2014 RECORDED 04/20/20 12 10:34AM BY ANITHA JUAREZATI ON/ADDEN DUM Marilyn D'Alessand ro null, [facility] 6 15:37:34 Enthesop athy 24589144 Completed 201102/11/2014 RECORDED 04/20/20 12 10:34AM BY EPHRAIM PETERSON I ANNOTATI ON/ADDEN DUM Marilyn D'Alessand ro null, [facility] 6 15:37:34 Hemorrho ids [id number] Completed 201102/11/2014 RECORDED 04/20/20 12 10:34AM BY EPHRAIM PETERSON I ANNOTATI ON/ADDEN DUM Marilyn Wilfredo'Alessand ro null, [facility] 6 15:37:34 Irritabl e bowel syndrome 08874594 Completed 201102/11/2014 RECORDED 04/20/20 12 10:34AM BY EPHRAIM PETERSON I ANNOTATI ON/ADDEN DUM Marilyn Wilfredo'Alessand ro null, [facility] 6 15:37:34 Low back pain 878246005 Completed 201102/11/2014 RECORDED 04/20/20 12 10:34AM BY EPHRAIM PETERSON I ANNOTATI ON/ADDEN DUM Marilyn Wilfredo'Alessand ro null, [facility] 6 15:37:34 Fibromyo sitis 52027618 Completed 201102/11/2014 RECORDED 04/20/20 12 10:34AM BY ANITHA JUAREZATI ON/ADDEN DUM Marilyn Wilfredo'Alessand ro null, [facility] 6 15:37:34 Sleep apnea 89143216 Completed 201102/11/2014 RECORDED 04/20/20 12 10:34AM BY ANITHA JUAREZATI ON/ADDEN DUM Marilyn Wilfredo'Alessand ro null, [facility] 6 15:37:34 Screenin g for malignan t neoplasm of colon Completed 201102/11/2014 RECORDED 04/20/20 12 10:34AM BY ANITHA JUAREZATI ON/ADDEN DUM Marilyn Wilfredo'Alessand ro null, [facility] 6 15:37:34 Disorder of rotator cuff Completed 201102/11/2014 IMPRESSI ON: TEAR, REPAIRED BY GABRIELE 02/28; RECORDED 04/20/20 12 10:34AM BY ANITHA JUAREZATI ON/ADDEN DUM Marilyn D'Alessand ro null, [facility] 6 15:37:34 Lateral epicondy litis 255334746 Completed 201102/11/2014 RECORDED 04/20/20 12 10:34AM BY EPHRAIM PETERSON I ANNOTATI ON/ADDEN DUM Marilyn D'Alessand ro null, [facility] 6 15:37:34 Umbilica l hernia 723375688 Completed 201102/11/2014 RECORDED 04/20/20 12 10:34AM BY ANITHA JUAREZATI ON/ADDEN DUM Marilyn D'Alessand ro null, [facility] 6 15:37:34 Wheezing 31890043 Completed 201102/11/2014 IMPRESSI ON: SAMPLE OF ALBUTERA L TO USE PRN; RECORDED 04/20/20 12 10:34AM BY ANITHA JUAREZATI ON/ADDEN DUM Marilyn D'Alessand ro null, [facility] 6 15:37:34 Alopecia 16695965 Completed 201103/03/2014 RECORDED 04/20/20 12 10:34AM BY EPHRAIM PETERSON I ANNOTATI ON/ADDEN DUM Marilyn D'Alessand ro null, [facility] 6 15:37:34 Bronchit is 94695641 Completed 201103/03/2014 RECORDED 04/20/20 12 10:34AM BY EPHRAIM PETERSON I ANNOTATI ON/ADDEN DUM Marilyn D'Alessand ro null, [facility] 6 15:37:34 Contact dermatit is 33192241 Completed 201103/03/2014 RECORDED 04/20/20 12 10:34AM BY ANITHA JUAREZATI ON/ADDEN DUM Marilyn D'Alessand ro null, [facility] 6 15:37:34 Cough 76083141 Completed 201103/03/2014 RECORDED 04/20/20 12 10:34AM BY EPHRAIM PETERSON I ANNOTATI ON/ADDEN DUM Marilyn D'Alessand ro null, [facility] 6 15:37:34 Enthesop aubreyy 05623820 Completed 201103/03/2014 RECORDED 04/20/20 12 10:34AM BY EPHRAIM PETERSON I ANNOTATI ON/ADDEN DUM Marilyn D'Alessand ro null, [facility] 6 15:37:34 Hemorrho ids [id number] Completed 201103/03/2014 RECORDED 04/20/20 12 10:34AM BY EPHRAIM PETERSON I ANNOTATI ON/ADDEN DUM Marilyn D'Alessand ro null, [facility] 6 15:37:34 Irritabl e bowel syndrome 49557678 Completed 201103/03/2014 RECORDED 04/20/20 12 10:34AM BY EPHRAIM PETERSON I ANNOTATI ON/ADDEN DUM Marilyn D'Alessand ro null, [facility] 6 15:37:34 Low back pain 627204754 Completed 201103/03/2014 RECORDED 04/20/20 12 10:34AM BY EPHRAIM PETERSON I ANNOTATI ON/ADDEN DUM Marilyn D'Alessand ro null, [facility] 6 15:37:34 Fibromyo sitis 52234548 Completed 201103/03/2014 RECORDED 04/20/20 12 10:34AM BY EPHRAIM PETERSON I ANNOTATI ON/ADDEN DUM Marilyn D'Alessand ro null, [facility] 6 15:37:34 Sleep apnea 98168489 Completed 201103/03/2014 RECORDED 04/20/20 12 10:34AM BY EPHRAIM PETERSON I ANNOTATI ON/ADDEN DUM Marilyn D'Alessand ro null, [facility] 6 15:37:34 Screenin g for malignan t neoplasm of colon Completed 201103/03/2014 RECORDED 04/20/20 12 10:34AM BY ANITHA JUAREZATI ON/ADDEN DUM Marilyn D'Alessand ro null, [facility] 6 15:37:34 Disorder of rotator cuff Completed 201103/03/2014 IMPRESSI ON: TEAR, REPAIRED BY GABRIELE 02/28; RECORDED 04/20/20 12 10:34AM BY ANITHA JUAREZATI ON/ADDEN DUM Marilyn D'Alessand ro null, [facility] 6 15:37:34 Lateral epicondy litis 556421124 Completed 201103/03/2014 RECORDED 04/20/20 12 10:34AM BY ANITHA JUAREZATI ON/ADDEN DUM Marilyn Wilfredo'Alessand ro null, [facility] 6 15:37:34 Umbilica l hernia 007925650 Completed 201103/03/2014 RECORDED 04/20/20 12 10:34AM BY ANITHA JUAREZATI ON/ADDEN DUM Marilyn D'Alessand ro null, [facility] 6 15:37:34 Wheezing 38441845 Completed 201103/03/2014 IMPRESSI ON: SAMPLE OF ALBUTERA L TO USE PRN; RECORDED 04/20/20 12 10:34AM BY ZAHIRA JUAREZ ON/ADDEN DUM Marilyn D'Alessand ro null, [facility] 6 15:37:34 Patient status finding [id number] Completed 201202/11/2014 RECORDED 12/12/19 13 3:24PM BY BRET BERG MA, ANITHAATI ON/ADDEN DUM Marilyn D'Alessand ro null, [facility] 6 15:37:34 Benign neoplasm of colon 64331231 Completed 201202/11/2014 STORY: DUE COLONOSC OPY 2013; RECORDED 12/12/19 13 3:24PM BY BRET BERG MA, ANNOTATI ON/ADDEN DUM Marilyn D'Alessand ro null, [facility] 6 15:37:34 Diarrhea 33329634 Completed 201202/11/2014 RECORDED 12/12/19 13 3:24PM BY BRET BERG MA, ANNOTATI ON/ADDEN DUM Marilyn D'Alessand ro null, [facility] 6 15:37:34 Renewal of prescrip tion Completed 201202/11/2014 RECORDED 12/12/19 13 3:24PM BY BRET BERG MA, ANITHAATI ON/ADDEN DUM Marilyn D'Alessand ro null, [facility] 6 15:37:34 Patient status finding 758645056 Completed 201203/03/2014 RECORDED 12/12/19 13 3:24PM BY BRET BERG MA, ZAHIRA ON/ADDEN DUM Marilyn D'Alessand ro null, [facility] 6 15:37:34 Benign neoplasm of colon 41927361 Completed 201203/03/2014 STORY: DUE COLONOSC OPY 2013; RECORDED 12/12/19 13 3:24PM BY BRET BERG MA, ZAHIRA ON/ADDEN DUM Marilyn D'Alessand ro null, [facility] 6 15:37:34 Diarrhea 61818229 Completed 201203/03/2014 RECORDED 12/12/19 13 3:24PM BY BRET BERG MA, ANNOTATI ON/ADDEN DUM Marilyn D'Alessand ro null, [facility] 6 15:37:34 Renewal of prescrip tion Completed 201203/03/2014 RECORDED 12/12/19 13 3:24PM BY BRET BERG MA, ANNOTATI ON/ADDEN DUM Marilyn D'Alessand ro null, [facility] 6 15:37:34 Testicul ar hypofunc tion 036794432 Completed 201202/11/2014 RECORDED 06/13/20 13 3:03PM BY BRET BERG MA, ANITHAATI ON/ADDEN DUM Marilyn D'Alessand ro null, [facility] 6 15:37:34 Testicul ar hypofunc tion 754442889 Completed 201203/03/2014 RECORDED 06/13/20 13 3:03PM BY BRET BERG MA, ANNOTATI ON/ADDEN DUM Marilyn D'Alessand ro null, [facility] 6 15:37:34 Influenz a vaccine needed 86791845145 06 Completed 201302/11/2014 RECORDED 10/19/19 14 1:36PM BY BRET BERG MA, ANNOTATI ON/ADDEN DUM Marilyn D'Alessand ro null, [facility] 6 15:37:34 Adult health examinat ion Completed 201302/11/2014 STORY: COLONOSC OPY DUE 2013/TUB ULAR ADENOMA; RECORDED 10/19/19 14 1:36PM BY BRET BERG MA, ANNOTCODY ON/ADDEN DUM Marilyn D'Alessand ro null, [facility] 6 15:37:34 Influenz a vaccine needed 89920298502 06 Completed 201303/03/2014 RECORDED 10/19/19 14 1:36PM BY BRET BERG MA, ZAHIRA ON/ADDEN DUM Marilyn D'Alessand ro null, [facility] 6 15:37:34 Adult health examinat ion Completed 201303/03/2014 STORY: COLONOSC OPY DUE 2013/TUB ULAR ADENOMA; RECORDED 10/19/19 14 1:36PM BY BRET BERG MA, ANNOTCODY ON/ADDEN DUM Marilyn D'Alessand ro null, [facility] 6 15:37:34 Obesity 826356954 Active 2018 Not Available [facility] 2 13:14:16 Impaired fasting glycemia 797526476 Completed 201911/29/2021 Richard Solis PA-C [address], [place], [address] , [facility] 2 18:00:37 Irritabl e bowel syndrome with diarrhea 960590456 Active 2020 Not Available [facility] 2 13:14:17 Right inguinal hernia 286525057 Active 2020 Not Available [facility] 2 13:14:16 Prediabe britany 830662406 Active 2021 Not Available [facility] 2 13:14:17 History of polyp of colon 695010347 Active 2021 Not Available [facility] 2 13:14:17 Clostrid ium difficil e colitis 456072820 Active 2021 Not Available [facility] 2 13:14:16 Insomnia 221630343 Active 2022 Richard Solis PA-C [address], [place], [address] , [facility] 3 11:57:56 Problem Notes None recorded. Procedures Surgical History Date Name Laterality Status Provider Name and Address Organization Details Recorded Time 05/29/20 24 Chronic Pain Assessment completed Richard Solis PA-C [address], [place], [address], [facility] 05/29/2024 17:01:53 01/15/20 24 Colonoscopy completed Marybeth Harrell [facility] 01/16/2024 08:46:18 01/15/20 24 Endoscopic us exam esoph completed Marybeth Harrell [facility] 01/16/2024 08:45:55 01/21/20 23 Chronic Pain Assessment completed Tamanna Winchester [place] [facility] 01/20/2023 15:25:31 07/12/20 21 Hernia Repair completed Raegan Logan [facility] 07/21/2021 10:11:13 10/28/20 21 Chronic Pain Assessment completed Halina Andre [place] [facility] 05/20/2021 08:38:13 11/21/19 21 Chronic Pain Assessment completed Halina Andre [place] [facility] 11/20/2020 09:16:35 02/03/20 20 Chronic Pain Assessment completed Alesia Corey [place] [facility] 02/03/2020 15:47:28 07/30/19 20 Chronic Pain Assessment completed Alesia Corey [place] [facility] 07/30/2019 15:45:10 03/28/20 19 Chronic Pain Assessment completed Alesia Corey MA [facility] 03/28/2019 16:04:10 12/25/19 19 Chronic Pain Assessment completed Ephraim Butelr [facility] 12/24/2018 15:30:11 08/03/19 18 Chronic Pain Assessment completed Radha Limon [place] [facility] 08/03/2017 15:13:54 umbilical hernioplasty completed Baltazar Poole MD [address] [address], [place], [address], [facility] 06/20/2021 21:08:43 Carpal tunnel surgery completed Kaci Rm [facility] 09/16/2020 15:51:33 Other completed Kaci Rm [facility] 09/16/2020 15:51:33 Repair rotator cuff chronic completed Kaci Rm [facility] 09/16/2020 15:51:33 Other completed Alisia Hollywood [facility] 06/24/2014 13:41:02 Imaging Results None recorded. Procedure Notes None recorded. Medical Equipment None Reported. Allergies Allergen ID Allergen Name Allergen Category Reaction Reaction Severity Criticality Documentation Date Start Date Code Code System Note Provider Name and Address Organization Details Recorded Time 00218 indometha britney medicatio n lighthead edness Not available Not available 06/08/2023 5781 RxNorm SAMUEL Lopez [facility] 3 15:49:25 9575 Wellbutri n medicatio n Not available Not available Not available 02/04/20142011 19035 RxNorm REACT ION: MOOD SWING S; COMME NT: RECOR DED 04/20 3:12P M BY SHUBHAM AMBROCIO MA, ANNOT ATION /ADDE NDUM; Not Available [facility] 4 13:26:33 9576 Wellbutri n medicatio n Not available Not available Not available 02/04/20142013 39826 RxNorm made very angry SAMUEL Bertrand, [place] - [facility] 0 15:41:24 Medications Name Sig Start Date Stop Date Status Note LastModified by Organization Details LastModified Time Prescript ion - Clarifica tion 09/20 completed Not Available Not Available Not Available cyclobenz aprine 10 mg tablet Take 1 tablet 3 times a day by oral route for 15 days. 05/07 completed Not Available Not Available Not Available amoxicill in 500 mg capsule Take by oral route for 7 days. 05/20 completed Not Available Not Available Not Available azithromy britney 250 mg capsule DIRECTED 05/20 completed RECORDED 07/09/20 09 9:39AM BY SYLVIA BERG PA-C, [facility];TWO TABS DAILY DAY ONE, FOLLOWED BY ONE TAB DAILY DAYS 2-5 Not Available Not Available Not Available methocarb rosemarie 500 mg tablet 02/21 completed Not Available Not Available Not Available venlafaxi ne ER 37.5 mg capsule,e xtended release 24 hr 10/30 completed Not Available Not Available Not Available prednison e 10 mg tablet TAKE 4 TABS BY MOUTH DAILY X1 DAY, THEN 3 TABS X1 DAY, THEN 2 TABS X1 DAY, THEN 1 TAB X1 DAY 01/15 completed Not Available Not Available Not Available doxycycli ne hyclate 100 mg capsule Take 1 capsule twice a day by oral route for 7 days. 05/14 completed Not Available Not Available Not Available naproxen 375 mg tablet 09/20 completed Not Available Not Available Not Available triamcino lone acetonide 0.5 % topical cream APPLY THIN LAYER TOPICALL Y TO THE AFFECTED AREA TWICE DAILY FOR 1 WEEK 12/13 completed Not Available Not Available Not Available cetirizin e 10 mg tablet DAILY 02/03 completed RECORDED 02/04/20 11 4:03PM BY ARCHANA GIBBS MA, OFFICE VISIT; Not Available Not Available Not Available azithromy britney 250 mg tablet TAKE 2 TABLETS BY MOUTH TODAY, THEN TAKE 1 TABLET DAILY FOR 4 DAYS 05/03 completed Not Available Not Available Not Available pravastat in 40 mg tablet TAKE 1 TABLET BY MOUTH EVERY DAY AT BEDTIME active Not Available Not Available No t Available ibuprofen 800 mg tablet as needed by mouth 02/21 completed Not Available Not Available Not Available clarithro mycin 500 mg tablet TWO TIMES DAILY 06/25 completed RECORDED 07/28/19 11 3:28PM BY MARILYN LOGAN MD, [facility]; Not Available Not Available Not Available hydrocodo ne 5 mg-acetam inophen 325 mg tablet TAKE 1 TABLET BY MOUTH TWICE DAILY NEEDED active Not Available Not Available No t Available prednison e 20 mg tablet 3 pills DAILY x 10 days 11/02 completed Not Available Not Available Not Available rizatript an 10 mg tablet Take 1 tablet every day by oral route as needed for 28 days. 05/29 completed Not Available Not Available Not Available propranol ol ER 60 mg capsule,2 4 hr,extend ed release Take 1 capsule every day by oral route for 30 days. 12/24 completed Not Available Not Available Not Available sumatript an 6 mg/0.5 mL subcutane ous cartridge (refill) one auto injectio n as needed for migraine s 03/21 completed Not Available Not Available Not Available metronida zole 250 mg tablet THREE TIMES DAILY 04/27 completed RECORDED 09/05/19 13 10:14AM BY MARILYN LOGAN MD, [facility]; Not Available Not Available Not Available clonazepa m 1 mg tablet TWO TIMES DAILY, NEEDED 11/17 completed RECORDED 11/20/19 14 4:37PM BY MARILYN LOGAN MD, [facility]; Not Available Not Available Not Available acetamino phen 300 mg-codein e 30 mg tablet 11/12 completed Not Available Not Available Not Available doxepin 10 mg capsule 02/02 completed Not Available Not Available Not Available sulfameth oxazole 800 mg-trimet hoprim 160 mg tablet TWO TIMES DAILY 10/28 completed RECORDED 11/20/19 14 4:37PM BY MARILYN LOGAN MD, [facility]; Not Available Not Available Not Available hydrocodo ne 10 mg-acetam inophen 325 mg tablet Take 1 tablet every 4 hours by oral route. 06/13 completed refill request Not Available Not Available Not Available aspirin 81 mg tablet,de layed release Daily by mouth 02/21 completed Not Available Not Available Not Available tramadol 50 mg tablet TAKE 1 TABLET BY MOUTH TWICE A DAY NEEDED FOR PAIN 12/05 completed Not Available Not Available Not Available vancomyci n 125 mg capsule TAKE 1 CAPSULE BY MOUTH FOUR TIMES A DAY FOR 10 DAYS 11/29 completed Not Available Not Available Not Available ketorolac 10 mg tablet TAKE 1 TABLET BY MOUTH EVERY 6 HOURS NEEDED 11/29 completed Not Available Not Available Not Available Serevent Diskus 50 mcg/dose powder for inhalatio n BID 03/05 completed RECORDED 03/05/20 10 3:06PM BY ZAHIRA SMART ON/VALE MCNAMARA; Not Available Not Available Not Available oxycodone -acetamin ophen 5 mg-325 mg tablet TAKE ONE TABLET BY MOUTH EVERY 6 HOURS NEEDED FOR PAIN 11/29 completed Not Available Not Available Not Available Fluticaso ne Propionat e (Inhal) 50 mcg/BLIST inhl powd DAILY 02/03 completed RECORDED 02/04/20 11 4:03PM BY ARCHANA GIBBS MA, OFFICE VISIT; Not Available Not Available Not Available amoxicill in 875 mg tablet Take 1 tablet every 12 hours by oral route for 10 days. 07/30 completed Not Available Not Available Not Available tamsulosi n 0.4 mg capsule TAKE ONE CAPSULE BY MOUTH AT BEDTIME 11/29 completed Not Available Not Available Not Available Hydrocort isone (Rectal) 2.5 % cream THREE TIMES DAILY 05/02 completed RECORDED 05/02/20 13 10:23AM BY ZAHIRA SMART ON/VALE DUM; Not Available Not Available Not Available benzonata te 100 mg capsule TAKE 1 CAPSULE BY MOUTH THREE TIMES A DAY FOR COUGH FOR 5 DAYS 01/15 completed Not Available Not Available Not Available doxycycli ne monohydra te 100 mg capsule TAKE 1 CAPSULE BY MOUTH TWICE A DAY FOR 10 DAYS 09/16 completed Not Available Not Available Not Available cephalexi n 500 mg capsule TAKE 1 CAPSULE BY MOUTH EVERY 6 HOURS FOR 10 DAYS 09/16 completed Not Available Not Available Not Available simvastat in 20 mg tablet QD 03/21 completed RECORDED 03/21/20 08 10:42AM BY MARILYN LOGAN MD, ZAHIRA ON/ DUM; Not Available Not Available Not Available erythromy britney 5 mg/gram (0.5 %) eye ointment 05/07 completed Not Available Not Available Not Available oseltamiv ir 75 mg capsule Take 1 capsule twice a day by oral route for 5 days. 09/08 completed Not Available Not Available Not Available esomepraz ole magnesium 40 mg capsule,d elayed release daily by mouth 02/21 completed Not Available Not Available Not Available ranitidin e 150 mg tablet Take 1 tablet twice a day by oral route for 90 days. 05/07 completed Not Available Not Available Not Available lansopraz ole 30 mg capsule,d elayed release QD 03/10 completed RECORDED 03/10/20 09 3:06PM BY MARILYN LOGAN MD, ZAHIRA ON/ DUM; Not Available Not Available Not Available prednison e 50 mg tablet TAKE 1 TABLET BY MOUTH EVERY DAY FOR 5 DAYS 01/15 completed Not Available Not Available Not Available frovatrip hamm 2.5 mg tablet TAKE 1 TABLET BY MOUTH DAILY NEEDED FOR HEADACHE 01/15 completed Not Available Not Available Not Available indometha britney 25 mg capsule TAKE 1 CAPSULE BY MOUTH THREE TIMES DAILY NEEDED FOR HEADACHE TAKE FOR HEADACHE . MAY TAKE 1-2 TABLET AT ONSET OF HEADACHE 06/08 completed Not Available Not Available Not Available omeprazol e 20 mg capsule,d elayed release TAKE 1 CAPSULE BY MOUTH EVERY DAY 2020 active Not Available Not Available Not Avai lable M-4 Knee High Stockings DAILY 05/02 completed RECORDED 05/02/20 13 10:23AM BY ZAHIRA SMART ON/ DUM; Not Available Not Available Not Available etodolac 400 mg tablet 09/20 completed Not Available Not Available Not Available hydrocodo ne 5 mg-acetam inophen 500 mg tablet THREE TIMES DAILY, NEEDED 10/18 completed RECORDED 10/19/19 14 4:32PM BY MARILYN LOGAN MD, ZAHIRA ON/ DUM; Not Available Not Available Not Available pravastat in 20 mg tablet TAKE 1 TABLET BY MOUTH EVERY DAY active Not Available Not Available No t Available Aspirin EC 325 mg tablet,de layed release THREE TIMES DAILY, NEEDED 05/20 completed RECORDED 06/13/20 08 3:02PM BY MARILYN LOGAN MD, MEDICATI ON [facility]; Not Available Not Available Not Available diclofena c sodium 50 mg tablet,de layed release 02/21 completed Not Available Not Available Not Available gabapenti n 100 mg capsule 05/07 completed Not Available Not Available Not Available Nasonex 50 mcg/actua tion [place] DAILY 03/05 completed RECORDED 03/05/20 10 3:07PM BY ZAHIRA SMART ON/ DUM; Not Available Not Available Not Available testoster one cypionate 200 mg/mL intramusc ular oil active Not Available Not Available Not Available ibuprofen 600 mg tablet TAKE 1 TABLET BY MOUTH THREE TIMES A DAY NEEDED FOR PAIN 01/20 completed Not Available Not Available Not Available cefuroxim e axetil 500 mg tablet active Not Available Not Available Not Available zolpidem 10 mg tablet TAKE ONE TABLET BY MOUTH DAILY AT BEDTIME NEEDED 2024 active Not Available Not Available Not Avai lable albuterol sulfate HFA 90 mcg/actua tion aerosol inhaler TAKE 2 PUFFS INHALED EVERY 4 TO 6 HOURS NEEDED FOR SHORTNES S OF BREATH 12/13 completed Not Available Not Available Not Available ondansetr on 4 mg disintegr ating tablet DISSOLVE 1 TABLET BY MOUTH EVERY 8 HOURS NEEDED FOR NAUSEA AND VOMITING 11/29 completed Not Available Not Available Not Available cefdinir 300 mg capsule TAKE 1 CAPSULE BY MOUTH TWICE A DAY 12/05 completed Not Available Not Available Not Available fluticaso ne propionat e 50 mcg/actua tion nasal spray,bunny pension USE 2 SPRAYs NASALLY DAILY DIRECTED 09/15 completed Not Available Not Available Not Available candesart an 8 mg tablet 05/07 completed Not Available Not Available Not Available metoclopr amide 10 mg tablet active Not Available Not Available No t Available finasteri de 1 mg tablet QD 03/05 completed RECORDED 03/05/20 10 2:46PM BY MONICA DAVIS, ANNOTATI ON/VALE DUM; Not Available Not Available Not Available amoxicill in 875 mg-potass ium clavulana te 125 mg tablet Take 1 tablet every 12 hours by oral route for 10 days. 11/12 completed Not Available Not Available Not Available rizatript an 5 mg tablet Take 1 tablet every day by oral route for 30 days. 05/07 completed Not Available Not Available Not Available oxycodone 5 mg tablet active Not Available Not Available Not Available sumatript an 6 mg/0.5 mL subcutane ous pen injector inject 6 mg prn migraine 03/23 completed Troubel with using the pen Not Available Not Available Not Available codeine-g uaifenesi n oral syrup Q 4 HOURS PRN 09/13 completed RECORDED 10/25/19 08 9:02AM BY JANAK SEN MD, MEDICATI ON [facility] [facility]; Not Available Not Available Not Available cyclobenz aprine 5 mg tablet Take 1 tablet as needed by oral route for 30 days. 09/15 completed prn Not Available Not Available Not Available topiramat e 50 mg tablet Take 1 tablet every day by oral route for 30 days. active Not Available Not Available No t Available Lyrica 25 mg capsule Take 1 capsule 3 times a day by oral route. 05/07 completed Not Available Not Available Not Available zolpidem ER 12.5 mg tablet,ex tended release,chaya lawler QHS / HS 05/05 completed RECORDED 05/05/20 09 9:20PM BY MARILYN LOGAN MD, ZAHIRA ON/ADDEN DUM; Not Available Not Available Not Available chlorhexi dine gluconate 0.12 % mouthwash SWISH AND SPIT 15ML IN THE MORNING AND IN THE AFTERNOO N FOR 2 WEEKS 05/20 completed Not Available Not Available Not Available Amoxil BID 07/18 completed RECORDED 07/26/19 08 2:37PM BY JANAK SEN MD, MEDICATI ON [facility] [facility]; Not Available Not Available Not Available halobetas ol propionat e DAILY 04/09 completed RECORDED 05/05/20 09 3:33PM BY MARILYN LOGAN MD, MEDICATI ON [facility] [facility]; Not Available Not Available Not Available verapamil THREE TIMES DAILY 03/05 completed RECORDED 03/05/20 10 3:05PM BY ZAHIRA SMART ON/ADDEN DUM; Not Available Not Available Not Available fexofenad ine DAILY 02/03 completed RECORDED 02/04/20 11 4:02PM BY ARCHANA GIBBS MA, OFFICE VISIT; Not Available Not Available Not Available Xopenex EVERY FOUR HOURS, NEEDED 10/02 completed RECORDED 10/25/19 08 9:02AM BY JANAK SEN MD, MEDICATI ON [facility] [facility]; Not Available Not Available Not Available Flovent HFA BID 03/05 completed RECORDED 03/05/20 10 2:46PM BY ZAHIRA SMART ON/ADDEN DUM; Not Available Not Available Not Available Symbicort 80 mcg-4.5 mcg/actua tion HFA aerosol inhaler INHALE 2 PUFFS 2 TIMES PER DAY FOR 30 DAYS 05/03 completed Not Available Not Available Not Available omeprazol e 20 mg tablet,de layed release Take 1 tablet every day by oral route for 90 days. 05/07 completed Not Available Not Available Not Available GaviLyte- G 236 gram-22.7 4 gram-6.74 gram-5.86 gram oral solution TAKE 8 OUCES BY MOUTH DIRECTED . DRINK A GLASS EVERY 10-15 MINUTES. 05/29 completed Not Available Not Available Not Available OptiChamb er Feli [facility] spacer USE WITH INHALER active Not Available Not Available No t Available Aimovig Autoinjec tor 140 mg/2 Pack (70 mg/mL) subcutane ous 12/24 completed Not Available Not Available Not Available Ajovy Syringe 225 mg/1.5 mL subcutane ous INJECT 1 PEN SUBCUTAN EOUSLY MONTHLY FOR MIGRAINE PREVENTI ON 02/02 completed Not Available Not Available Not Available Emgality Pen 120 mg/mL subcutane ous pen injector INJECT 1 PEN SUBCUTAN EOUSLY EVERY 4 WEEKS FOR MIGRAINE PREVENTI ON 11/19 completed Not Available Not Available Not Available Aimovig Autoinjec tor 140 mg/mL subcutane ous auto-inje ctor prn 07/30 completed Not Available Not Available Not Available Nurte ODT 75 mg disintegr ating tablet Take 1 tablet every day by oral route for 30 days. 11/19 completed Not Available Not Available Not Available Flucelvax Quad (PF) 60 mcg (15 mcg x 4)/0.5 mL IM syringe PHARMACY ADMINIST ERED 09/16 completed Not Available Not Available Not Available Qulipta 60 mg tablet Take by oral route for 30 days. 05/29 completed Not Available Not Available Not Available Qulipta 30 mg tablet Take 1 tablet every day by oral route for 30 days. 12/05 completed Not Available Not Available Not Available Qulipta 10 mg tablet TAKE 1 TABLET BY MOUTH EVERY DAY FOR 30 DAYS 12/05 completed Not Available Not Available Not Available Vitals Date Recorded Body height Body mass index (BMI) Body weight Oxygen saturation Heart rate Body temperature Systolic And Diastolic Provider Name and Address Organization Details Last Updated DateTime 4 179.71 cm 30.8 kg/m2 91817.4 3 g 98 % 73 /min 98.2 [degF] 112/67 mm[Hg] Alesia Corey [facility] 4 16:08:19 Date Recorded Body height Body mass index (BMI) Body weight Oxygen saturation Heart rate Body temperature Systolic And Diastolic Provider Name and Address Organization Details Last Updated DateTime 5 179.71 cm 30.5 kg/m2 66589.2 4 g 99 % 74 /min 98 [degF] 116/68 mm[Hg] Alesia Corey [facility] 5 15:34:42 Date Recorded Body height Body mass index (BMI) Body weight Heart rate Oxygen saturation Body temperature Systolic And Diastolic Provider Name and Address Organization Details Last Updated DateTime 5 179.71 cm 30.5 kg/m2 66895.5 4 g 82 /min 100 % 98.4 [degF] 132/72 mm[Hg] Tobi donahue [facility] 5 09:36:25 Date Recorded Body height Body mass index (BMI) Body weight Heart rate Oxygen saturation Body temperature Systolic And Diastolic Provider Name and Address Organization Details Last Updated DateTime 4 179.71 cm 31 kg/m2 81443.4 2 g 80 /min 99 % 98.3 [degF] 105/64 mm[Hg] [facility] 4 16:06:24 Date Recorded Body height Body mass index (BMI) Body weight Heart rate Oxygen saturation Body temperature Systolic And Diastolic Provider Name and Address Organization Details Last Updated DateTime 3 179.71 cm 30.9 kg/m2 36535.3 2 g 82 /min 97 % 98.4 [degF] 113/73 mm[Hg] Archana dempsey [facility] 3 15:47:55 Social History Question Answer Notes LastModified by Organizat ion Details LastModified Time Tobacco Smoking Status Never Smoker Alisia [facility] 06/24/2014 15:14:09 Do You Have An Advance Directive? No [email or web address] Information not available 05/03/2022 Is Blood Transfusion Acceptable In An Emergency? Yes [email or web address] Information not available 09/15/2015 What Is Your Level Of Caffeine Consumption? Occasional Coffee 1-2 Cups Daily Tea Information not available 11/29/2021 How Much Tobacco Do You Chew? None Information not available 09/16/2020 In The 14 Days Before Symptom Onset, Have You Had Close Contact With A Laboratory-confir med COVID-19 While That Case Was Ill? No [email or web address] Information not available 05/03/2022 In The 14 Days Before Symptom Onset, Have You Had Close Contact With A Person Who Is Under Investigation For COVID-19 While That Person Was Ill? No [email or web address] Information not available 05/03/2022 Have You Been To An Area Known To Be High Risk For COVID-19? No Information not available 05/03/2022 What Type Of Diet Are You Following? REGULAR Information not available 09/20/2016 Which Illicit Or Recreational Drugs Have You Used? None Information not available 11/29/2021 Live Alone Or With Others? With Others [email or web address] Information not available 05/03/2022 Do You Take Precautions To Prevent Distracted Driving? Yes [email or web address] Information not available 09/15/2015 How Often Do You Need To Have Someone Help You When You Read Instructions, Pamphlets, Or Other Written Material From Your Doctor Or Pharmacy? Never Information not available 09/16/2020 Have You Served In The ? No Information not available 09/20/2016 Have You Or Anyone In Your Household Had Any Of The Following Symptoms In The Last 14 Days: Sore Throat, Cough, Chills, Body Aches For Unknown Reasons, Shortness Of Breath For Unknown Reasons, Loss Of Smell, Loss Of Taste, Fever At Or Greater Than 100 Degrees Fahrenheit? No [email or web address] Information not available 02/03/2020 Are You Or Anyone In Your Household A Health Care Provider Or Emergency Responder? No Information not available 02/03/2020 To The Best Of Your Knowledge Have You Been In Close Proximity To Any Individual Who Tested Positive For COVID-19? No [email or web address] Information not available 02/03/2020 *AWV ONLY* Are You Presently Prescribed Opioid Medication By PCP Or Specialist? If YES -Provider Assess The Benefit For Other, Non-opioid Pain Therapies Instead, Even If The Patient Does Not Have OUD But Is Possibly At Risk. No Information not available 09/16/2020 Have You Recently Traveled To A [place] [id number] High Risk Area Or Gathering In The Last 10 Days? No Information not available 09/16/2020 What Was The Date Of Your Most Recent Tobacco Screening? 01/15/2025 [email or web address] Information not available 01/15/2025 How Many Children Do You Have? 2 [email or web address] Information not available 06/24/2014 Do You Use Protection During Sex? No Information not available 11/29/2021 What Is Your Relationship Status? [email or web address] Information not available 05/03/2022 Do You Use Your Seat Belt Or Car Seat Routinely? Yes Information not available 11/29/2021 Seat Belts Used Routinely Yes [email or web address] Information not available 05/03/2022 Are You Sexually Active? Yes Information not available 09/20/2016 Smoke Alarm In Home Yes [email or web address] Information not available 05/03/2022 Do You Have Smoke And Carbon Monoxide Detectors In Your Home? Yes Information not available 11/29/2021 At What Age Did You Start Smoking Tobacco? 0 Information not available 11/29/2021 Are You Passively Exposed To Smoke? No Information no t available 09/20/2016 How Much Tobacco Do You Smoke? No Information not available 09/20/2016 Do You Use Sunscreen Routinely? Yes [email or web address] Information not available 09/15/2015 How Many Years Have You Smoked Tobacco? 0 Information not available 11/29/2021 Sex: Unknown Functional Status Question Answer Note LastModified by Organizat ion Details LastModified Time Do you use any illicit or recreational drugs? No Information not available 12/05/2022 Do you or have you ever used any other forms of tobacco or nicotine? No Information not available 12/05/2022 What is your level of alcohol consumption? Occasional few times yearly Information not available 11/29/2021 Do you or have you ever used smokeless tobacco? Never used smokeless tobacco Information not available 09/16/2020 Are you currently employed? Yes [email or web address] Information not available 11/29/2021 Are you able to walk independently without assistance or assistive devices? YESWOREST [email or web address] Information not available 05/03/2022 Are you able to care for yourself independently? Yes Information not available 09/20/2016 What is your occupation? [employer] Information not available 05/20/2021 Do you or have you ever used e-cigarettes or vape? Never used electronic cigarettes [email or web address] Information not available 05/03/2022 What is your exercise level? 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 Family History Relationship Description Onset Age of this Age Resolved Age Notes LastModified by Organization Details LastModified Time Mother Chronic obstructive pulmonary disease [email or web address] Not available 16:01:48 Mother Non-Hodgkin' s lymphoma (clinical) 65 [email or web address] Not available 04/23 08:36:06 Father Myocardial infarction 55 [email or web address] Not available 04/23 08:36:06 Notes:no fh p ca or crc Medical History Condition Response Other Y Acid Reflux (GERD) Y Headaches/Migraines Y Headaches Y Osteoporosis N High Cholesterol Y Immunizations Vaccine Type Date Status Note Provider Nam e and Address Organization Details Recorded Time Influenza, MDCK, quadrivalent, PF 0 completed Marybeth baker [facility] 06/13/2022 14:19:54 COVID-19, mRNA, LNP-S, PF, 100 mcg/0.5mL dose or 50 mcg/0.25mL dose 1 completed Marybeth baker [facility] 06/13/2022 14:19:54 COVID-19, mRNA, LNP-S, PF, 100 mcg/0.5mL dose or 50 mcg/0.25mL dose 1 completed Marybeth baker [facility] 06/13/2022 14:19:54 Influenza, MDCK, trivalent, PF 12/26/201 5 completed Marybeth Harrell null, [facility] 06/13/2022 14:19:54 Influenza, split virus, quadrivalent, preservative 5 completed Marybeth Harrell null, [facility] 06/13/2022 14:19:54 Tdap 1 completed Marybeth Harrell null, [facility] 06/13/2022 14:19:54 COVID-19, mRNA, LNP-S, PF, 100 mcg/0.5mL dose or 50 mcg/0.25mL dose 1 completed Marybeth Harrell null, [facility] 06/13/2022 14:19:54 Influenza, split virus, trivalent, PF 6 completed Marybeth Harrell null, [facility] 06/13/2022 14:19:54 Influenza, split virus, trivalent, PF 4 completed Marybeth Harrell null, [facility] 06/13/2022 14:19:54 Influenza, split virus, quadrivalent, PF 0 completed Marybeth Harrell null, [facility] 06/13/2022 14:19:54 Tdap 7 completed Marybeth Harrell null, [facility] 06/13/2022 14:19:54 Influenza, split virus, quadrivalent, PF 1 completed Marybeth Harrell null, [facility] 06/13/2022 14:19:54 Influenza, split virus, quadrivalent, PF 7 completed Marybeth Harrell null, [facility] 06/13/2022 14:19:54 Influenza, MDCK, quadrivalent, PF 2 completed Archana mclaughlin MA null, [facility] 06/08/2023 15:40:26 Tdap 8 completed Marybeth Harrell null, [facility] 06/13/2022 14:19:54 influenza, seasonal, intradermal, preservative free 2 completed Marybeth baker, [facility] 06/13/2022 14:19:54 influenza, seasonal, intradermal, preservative free 3 completed Marybeth baker, [facility] 06/13/2022 14:19:54 Past Encounters Encounter ID Performer Location Encounter Start Date Encounter Closed Date Diagnosis/Indication Diagnosis SNOMED-CT Code Diagnosis ICD10 Code Diagnosis IMO Codes Diagnosis Note [id number] [facility]Comm [facility] [address] [facility] [place] [address] 07/04/2007 00:00:00 [id number] autoEComm erce [address] [facility],[address] [place] [address] 09/03/2007 00:00:00 [id number] autoEComm erce [address] [facility],[address] [place] [address] 12/06/2007 00:00:00 [id number] autoEComm erce [address] [facility],[address] [place] [address] 03/21/2008 00:00:00 [id number] autoEComm erce [address] [facility] [place] [address] 05/15/2008 00:00:00 [id number] autoEComm erce [address] [facility] [place] [address] 06/16/2008 00:00:00 [id number] autoEComm erce [address] [facility],[address] [place] [address] 10/10/2008 00:00:00 [id number] autoEComm erce [address] [facility] [place] [address] 11/03/2008 00:00:00 [id number] autoEComm erce [address] [facility] [place] [address] 03/10/2009 00:00:00 [id number] autoEComm erce [address] [facility] [place] [address] 05/15/2009 00:00:00 [id number] autoEComm erce [address] [facility] [place] [address] 06/15/2010 00:00:00 [id number] autoEComm erce [address] [facility] [place] [address] 02/03/2011 00:00:00 [id number] autoEComm erce [address] [facility],[address] [place] [address] 06/21/2011 00:00:00 [id number] autoEComm erce [address] [facility] [place] [address] 08/25/2011 00:00:00 [id number] autoEComm erce [address] [facility],[address] [place] [address] 09/26/2011 00:00:00 [id number] autoEComm erce [address] [facility],[address] [place] [address] 04/20/2012 00:00:00 [id number] autoEComm erce [address] [facility],[address] [place] [address] 12/11/2012 00:00:00 [id number] autoEComm erce [address] [facility],[address] [place] [address] 02/15/2013 00:00:00 [id number] autoEComm erce [address] [facility],[address] [place] [address] 06/13/2013 00:00:00 [id number] autoEComm erce [address] [facility],[address] [place] [address] 10/18/2013 00:00:00 [id number] autoEComm erce [address] [facility],[address] [place] [address] 01/08/2014 00:00:00 [id number] Marilyn bass MD Main Office [address] [facility] [address] [place] [address] 06/24/2014 15:04:11 06/24/2014 16:11:53 Adult health examination [id number] pt is not obese/desp ite BMI. see PE. Needs infl uenza immunization 063736010 Obstructiv e sleep apnea syndrome 35037756 Gastroesop hageal reflux disease 689084007 Pure hypercholesterolemia 762503206 [id number] Marilyn bass MD Main Office [address] [address] 07/21/2015 11:28:12 07/21/2015 14:57:53 [id number] Marilyn bass MD Main Office [address] [address] 09/15/2015 14:58:19 09/15/2015 16:04:06 Adult health examination 999360810 Z00.00 pt is not obese/desp ite BMI. see PE. Hyperlipidemia 48665609 E78.5 Gastroesop hageal reflux disease 163935883 K21.9 Body mass index 30+ - obesity 346414065 E66.9 [id number] Marilyn bass MD Main Office [address] [address] 02/22/2016 15:10:20 02/22/2016 16:10:14 Migraine 11316589 G43.909 [id number] Marilyn bass MD Main Office [address] [address] 09/20/2016 14:50:10 09/20/2016 16:37:02 Adult health examination 800525167 Z00.00 pt is not obese/desp ite BMI. see PE. Gastroesop hageal reflux disease 155076503 K21.9 Body mass index 30+ - obesity 874661665 Z68.30 E66.9 Hyperlipidemia 41010225 E78.5 Migraine 86860802 G43.90 9 Sinusitis 99430071 J32.9 Fatigue 43580100 R53.83 Administra tion of diphtheria, pertussis, and tetanus vaccine 055873650 Z23 Chronic pain 32814780 G8 9.29 this rx may last till January 2017 Increased frequency of urination 342059922 R35.0 [id number] Marilyn bass MD Main Office [address] [place] [address] 03/23/2017 15:06:46 03/23/2017 16:07:16 Chronic pain 98403034 G89.29 Needs infl uenza immunization 271093437 Z23 Migraine 77996445 G43.90 9 Gastroesop hageal reflux disease 222834765 K21.9 Cyrus did endoscopy Chronic neck pain 539340 0723 107 M54.2 [id number] Marilyn bass MD Main Office [address] [place] [address] 08/03/2017 15:04:03 08/03/2017 15:42:54 Chronic pain 91231421 G89.29 Hyperlipidemia 14469745 E78.5 Gastroesop hageal reflux disease 216858274 K21.9 Cyrus did endoscopy Migraine 99168189 G43.90 9 Cough 41387744 R05 [id number] Marilyn bass MD Main Office [address] [address] 09/02/2017 11:38:32 09/02/2017 13:03:59 Fever 050222455 R50.9 Influenza 8933732 J11.1 Wheezing 14303912 R06.2 [id number] Marilyn bass MD Main Office [address] [address] 09/08/2017 11:22:23 09/08/2017 12:01:46 Asthma 852902775 J45.909 [id number] Marilyn bass MD Main Office [address] [address] 11/02/2017 09:12:41 11/02/2017 10:09:28 Adult health examination 719526214 Z00.00 pt is not obese/desp ite BMI. see PE. Insomnia 859321626 G47.0 0 Gastroesop hageal reflux disease 998271603 K21.9 Cyrus did endoscopy Impaired f asting glycemia 165752701 R73.01 Hyperlipidemia 75375333 E78.5 Migraine 42106640 G43.90 9 [id number] Richard Solis PA-C Main Office [address] [address] [place] [address] 05/07/2018 10:53:20 05/07/2018 11:57:03 Chronic pain 32939531 G89.29 see below re: migraines cont f/u c pain /gaitan specialist at [facility] - cont botox Asthma 829539561 J45.90 9 Migraine 66275942 G43.90 9 cont f/u c pain /gaitan specialist at [facility] - cont botox Cough 06478254 R05 lungs clear but with h/o asthma ? may have walking pna Acute sinusitis 76118230 J01.90 cont probiotics [id number] Baltazar Poole MD Main Office [address] [facility] [address] [place] [address] 11/12/2018 15:58:34 11/12/2018 17:13:49 Adult health examination 193513102 Z00.00 Migraine 69344225 G43.90 9 cont f/u c pain /gaitan specialist at [facility] - cont injections as dir (aimovig), cont maxalt & propranol c prn vicodin - used to get more from [facility], has used smaller script lately - pt requests larger script - will set up c MD in office Chronic pain 03389199 G8 9.29 see below re: migraines cont f/u c pain /gaitan specialist at [facility] - 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 Recently started Aimovig. Rx refilled, will monitor use. Narcotic contract in place. Insomnia 229564604 G47.0 0 Not using every day. Will continue prn hypnotic and monitor use. [id number] Baltazar Poole MD Main Office [address] [facility] [address] [place] [address] 03/28/2019 15:13:58 03/28/2019 16:44:00 Migraine without aura 88116156 G43.009 Chronic and stable. Recently started Aimovig. Narcotic rx refilled as this is the only rx found to afford relief. Will continue to monitor use and refill PRN. Narcotic contract in place. Chronic pain syndrome 37 5516238 G89.4 Extensive review does not show any other treatment options. > 25min spent with patient face to face. Consider TCA trial in the future. Migraine 74594285 G43.90 9 [id number] Baltazar Poole MD Main Office [address] [facility] [address] [place] [address] 07/30/2019 15:32:52 07/30/2019 16:19:56 Chronic pain syndrome 740939097 G89.4 Will see if Toradol is more effective than ibuprofen. Advised to take with food and no other NSAIDS. Needs infl uenza immunization 727082647 Z23 Migraine without aura 56 502014 G43.009 Has f/u with pain mgmt/[facility] specialist s in [place] upcoming. Hydrocodon e refilled, will monitor use. Narcotic contract in place. Insomnia 784299411 G47.0 0 Not using every day. Will continue prn hypnotic and monitor use. Adult [facility] th examination 368914109 Z00.00 Will have labs done prior to upcoming physical. Impaired f asting glycemia 839948833 R73.01 [id number] Baltazar Poole MD Main Office [address] [facility] [address] [place] [address] 10/31/2019 13:17:34 11/01/2019 14:32:26 Migraine 75303324 G43.819 Will try prednisone PRN recalcitra nt flares. Neurologis t/ Dr. Ferrell is requesting a copy of recent LFT's ([phone]) which I forwarded. Currently has enough hydrocodon e. [id number] Baltazar Poole MD Main Office [address] [facility] [address] [place] [address] 02/03/2020 15:25:57 02/03/2020 16:15:10 Chronic pain 07746829 G89.29 Migraine 60515527 G43.81 9 Will try prednisone PRN for recalcitra nt flares. Needs refill on hydroodone . Migraine without aura 56 213967 G43.009 Has f/u with pain mgmt/[facility] specialist s in [place] upcoming. Hydrocodon e refilled, will monitor use. Narcotic contract in place. [id number] Baltazar Poole MD Main Office [address] [facility] [address] [place] [address] 09/16/2020 15:51:19 09/18/2020 10:11:53 Adult health examination 631209853 Z00.00 Varicella vaccination 68 287678 Z23 Migraine 42412376 G43.90 9 better lately - cont f/u c pain /gaitan specialist at [facility] - cont injections as dir (aimovig), cont maxalt & propranol c prn vicodin Chronic pain 40267690 G8 9.29 see above re: migraines - pt states has rarely used narcotics lately, but asking for small refill cont f/u c AW for narcotics if needs more beyond this small script Body mass index 30+ - obesity 769603145 Z68.32 Hyperlipidemia 24409362 E78.2 cont statin, rec increase aerobic ex Impaired f asting glycemia 168952766 R73.01 Insomnia 450481826 G47.0 0 stable, cont med as dir Left later al elbow tendinopathy 0434668414 07851 M77.12 will get ortho eval for likely umer injxn Obesity 153482745 E66.9 Z68.30 [id number] Baltazar Poole MD Main Office [address] [facility] [address] [place] [address] 11/20/2020 09:11:19 11/20/2020 10:01:06 Migraine 11763750 G43.819 Using hydrocodon e as last ditch effort for recalcitra nt migraines. Will monitor. Chronic pain syndrome 37 8339663 G89.4 Urine tox negative beacuse he does not use medication s regularly. Narcotic contract updated. [id number] Baltazar Poole MD Main Office [address] [facility] [address] [place] [address] 05/20/2021 08:27:21 05/20/2021 09:05:25 Needs influenza immunization 074319204 Z23 Right inguinal pain 1562 932871 7102758 R10.31 If confirmed will refer to Dr. Good how repaired his umbilical hernia previously . Migraine 52443652 G43.81 9 Using hydrocodon e as last ditch effort for recalcitra nt migraines. Using tryptan more than [facility]/ insurance will provide. Will try [facility] [employer] to get a quantitiy of 18. [id number] Baltazar Poole MD Main Office [address] [address] [place] [address] 11/03/2021 09:36:00 11/03/2021 13:19:34 [id number] Baltazar Poole MD Main Office [address] [place] [address] 11/29/2021 15:48:02 11/30/2021 09:28:46 Adult health examination 302040024 Z00.00 Varicella vaccination 68 180696 Z23 Clostridiu m difficile colitis 627048611 A04.72 seen ~ 3 wks ago at [facility] - rx'd c vanco x 10 days - better now - rec cont probiotic qd, cont fiber as dir Chronic pain 05938995 G8 9.29 cont f/u c AW Hyperlipidemia 38157753 E78.2 cont statin, rec increase aerobic ex Migraine 78267476 G43.90 9 better lately - cont f/u c pain /gaitan specialist at [facility] - cont injections as dir (aimovig), cont prn vicodin - no tolerate various otc's for prevetion, zomig, imitrex, topamax, propanolol or nurtec, not getting any help c maxalt, would like to try qulipta Obstructiv e sleep apnea syndrome 16256598 G47.33 no tolerate cpap, better p wt loss Gastroesop hageal reflux disease 935283063 K21.9 had neg egd a few yrs ago, cont ppi since no tolerate pepcid 1-2x/day in past Body mass index 30+ - obesity 792892793 E66.9 Z68.32 Pain of ri ght knee region 7203443258 88622 M25.561 x ~ 2 months - slowly getting better but not resolved - ? had traumatic pre-patell a bursitis vs mild subluxatio n - negative exam today - if no better in several weeks then consider ortho eval Prediabetes 501685836 R7 3.03 History of polyp of colon 900384511 Z86.010 next colon 4.24 [id number] Baltazar Poole MD [facility] [address] [facility] [address] [place] [address] 05/03/2022 08:35:31 05/04/2022 14:55:43 Migraine 35066887 G43.909 better on trial of 60mg recently - so will increase dose from 30mg to 60mg and cont to monitor Insomnia 834974473 G47.0 0 stable, cont med as dir - pt requested increase # of tabs, [facility] - -- encouraged pt to use prn instead of qd [id number] Baltazar Poole MD Main Office [address] [facility] [address] [place] [address] 12/05/2022 15:14:46 12/06/2022 08:48:20 Adult health examination 263504683 Z00.00 Migraine 10194737 G43.90 9 refill at pt requesthe did not have a good eval at [facility] - prefers a different provider Hyperlipidemia 88909721 E78.2 cont statin, and exercise Prediabetes 245321447 R7 3.03 Nocturia 803645026 R35.1 Fatigue 32057868 R53.83 Goiter 8716123 E04.9 History of polyp of colon 183147193 Z86.010 next colon 4.24 Body mass index 30+ - obesity 008103579 E66.9 Z68.31 Insomnia 027793149 G47.0 0 stable, cont med as dir - pt requested increase # of tabs, [facility] -- encouraged pt to use prn instead of qd [id number] [facility] [address] [place] [address] 01/20/2023 14:24:15 01/23/2023 09:29:50 Chronic pain 30352204 G89.29 Migraine 46005113 G43.90 9 Using hydrocodon e as last ditch effort for recalcitra nt migraines. Using tryptan more than [facility]/ [facility] will provide. Will try [facility] and see if override quantity of 18 is allowed. Referral to [facility] neurology bogged down will try to continue referral attempt. Pt provided supposed correct contact info to arrange consultati on with GAITAN specialist . [id number] Baltazar Poole MD Main Office [address] [place] [address] 06/08/2023 15:07:54 06/08/2023 16:21:32 Prediabetes 213691974 R73.03 Migraine 22574206 G43.90 9 refill at pt requesthe did not have a good eval at [facility] - prefers a different provider 11.23 - seen by [facility] - last month, tried indomethac in - no tolerate well, next f/u in 1.24 == reviewed note in [facility]vix Hyperlipidemia 11408277 E78.2 stable - cont statin, and exercise Neck pain 03156573 M54.2 ? neck pain radiating to head facilitati ng migraines - check xray, consider PMR if significan t findings Nocturia 029242981 R35.1 Atopic dermatitis 031549 01 L20.9 RLE - trial c steroid cream Chronic pain 55824934 G8 9.29 signed narcotic agreementc ont f/u c AW Insomnia 695652787 G47.0 0 stable, cont med as dirsigned agreement above [id number] Baltazar Poole MD Main Office [address] [place] [address] 12/14/2023 15:43:12 12/14/2023 16:51:15 Adult health examination 309880885 Z00.00 pending colon next month Prediabetes 576059325 R7 3.03 Migraine 74197676 G43.90 9 refill at pt requesthe did not have a good eval at [facility] - prefers a different provider 11.23 - seen by [facility] - last month, tried indomethac in - no tolerate well, next f/u in .24 == reviewed note in pvix 5.24 - stable, cont med, f/u c neuropt requests refill of pain med Hyperlipidemia 59803939 E78.2 stable - cont statin, and exercise Neck pain 79163306 M54.2 ? neck pain radiating to head facilitati ng migraines - check xray, consider PMR if significan t findings 5.24 - neck xray mild djd, stable lately Nocturia 911665839 R35.1 Chronic pain 68980608 G8 9.29 signed narcotic agreementc ont f/u c AW 5.24 - see migraine above Insomnia 377717669 G47.0 0 stable, cont med as dirsigned agreement above 5.24 - stable, cont med as dir Body mass index 30+ - obesity 869796187 Z68.30 E66.9 [id number] Baltazar Poole MD Main Office [address] [place] [address] 05/29/2024 15:41:26 05/29/2024 16:56:22 Influenza vaccination declined 394796306 Z28.21 Hyperlipidemia 60357127 E78.2 Yannick - your LDL is trending up - I would double up your pravastati n 20mg to 2 tabs nightly == 40mg, and I'll send in a new script for the higher dose.- Pat recheck lipids Prediabetes 784828777 R7 3.03 unfortunat ino you have evidence of pre-diabet es - rec. less sugar intake (candy, ice cream, soda/juice , etc), follow a low carb diet and get plenty of aerobic exercise to help you to lose weight. Pat recheck a1c Chronic pain 37501465 G8 9.29 11. - re-signed narcotic agreement see migraine below Migraine 43134678 G43.90 9 refill at pt requesthe did not have a good eval at [facility] - prefers a different provider . - seen by [facility] neuro - last month, tried indomethac in - no tolerate well, next f/u in .24 == reviewed note in pvix 11.24 - stable, cont med, f/u c neuro - encouraged pt to call [facility] since they lost a [facility] specialist recently - printed 02.13 note for ptseen by pain specialist - but his cervical facet injxn declined by his ins. - f/u prn History of polyp of colon 302102521 Z86.0100 last colon 6.24 - next in 3 yrs Gastroesop hageal reflux disease 867576207 K21.9 had egd a few months ago - no evidence of caraballo's, cont ppi as dir by gi Skin lesion 67668967 L98 .9 pt requests derm eval [id number] Baltazar Poole MD Main Office [address] [place] [address] 01/15/2025 15:17:49 01/15/2025 16:24:35 Adult health examination 389252886 Z00.00 colon utd Hyperlipidemia 88084346 E78.2 Yannick - your LDL is trending up - I would double up your pravastati n 20mg to 2 tabs nightly == 40mg, and I'll send in a new script for the higher dose.- Pat 6.25 - recheck lipids Prediabetes 170470083 R7 3.03 unfortunat ino you have evidence of pre-diabet es - rec. less sugar intake (candy, ice cream, soda/juice , etc), follow a low carb diet and get plenty of aerobic exercise to help you to lose weight. Pat recheck a1c Chronic pain 74477702 G8 9.29 11.24 - re-signed narcotic agreement see migraine below Migraine 59692957 G43.90 9 refill at pt requesthe did not have a good eval at [facility] - prefers a different provider 11.23 - seen by [facility] - last month, tried indomethac in - no tolerate well, next f/u in 1.24 == reviewed note in pvix 11.24 - stable, cont med, f/u c neuro - encouraged pt to call [facility] since they lost a gait[facility] specialist recently - printed 02.13 note for ptseen by pain specialist - but his cervical facet injxn declined by his ins. - f/u prn 6.25 - cont f/u c neuro - advised pt to check to see if [facility] specialist in [facility] is covered by his health ins - if yes, will give referral History of polyp of colon 348629890 Z86.0100 last colon 6.24 - next in 3 yrs Gastroesop hageal reflux disease 703359747 K21.9 had egd a few months ago - no evidence of caraballo's, cont ppi as dir by gi Skin lesion 29701530 L98 .9 pt requests derm eval Vitamin D deficiency 347 22662 E55.9 66543 Nocturia 040234994 R35.1 Body mass index 30+ - obesity 398439021 Z68.30 E66.9 Insomnia 634807416 G47.0 0 stable, cont med as dirsigned agreement above 5.24 - stable, cont med as dir Fatigue 26003134 R53.83 4604733 [id number] Tarik Tolbert MD Main Office [address] [facility] [address] [place] [address] 04/30/2025 09:21:51 04/30/2025 10:03:35 Pneumonia 096488938 J18.9 3030737945 symptoms of productive cough, congestion , fatigue, wheezing, and sweats for 3-4 days-denie s of any measureabl e fever-has tried OTC decongesta nts and cough medication with no relief-gildardo es albuterol for the wheezing-n otes he had leftover prednisone which initially provided relief, but no longer does-on PE: crackles appreciate d in bilateral lower lobes with wheezing in upper right-will provide course of doxycyclin e-will f/u in 1 week to recheck lung sounds Health Concerns Section Related Observation LastModified by Organization Detai ls LastModified Time None Recorded Concern Status LastModified by Organization Details LastModified Time None Recorded Advance Directives Directive N: Payers Insurance Date Sequence Insurance Name Policy Number Policy Banegas Covered Member ID Banegas Member ID Guarantor Name 04/03/2020 1 MAIA (O) [id number] Yannick Sanchez [id number] Yannick Sanchez 01/06/2022 2 [place]: O [facility] [id number] Janell Sanchez [id number] Yannick Sanchez 01/15/2022 1 UNSPECIFIED REMIT PAYOR Yannick Sanchez 02/14/2024 1 [place] [facility] [id number] Yannick Demarco Laura [id number] Yannick Sanchez 10/11/2021 1 [employer] [id number] Yannick Demarco Laura [id number] Yannick Sanchez 11/02/2021 1 [place] [id number] Yannick Sandslatasha [id number] Yannick Sanchez 05/09/2025 1 [place] [facility] [place] [id number] Yannick Demarco Laura [id number] Yannick Sanchez 04/30/2025 1 [place] [facility] [place] [id number] Janell Fonseca Laura [id number] Yannick Sanchez Notes Date Note Type Note Provider Name and Address Organization Details Recorded Time 06/08/2023 text/html pt here for f/u visit states he was finally seen by [facility] - last month, tried indomethacin - no tolerate well, next f/u in . reviewed labs c pt Richard Solis PA-C [address] [address], [place], [address], [facility] 06/10/2023 12:00:07 12/14/2023 text/html Generic HPI TemplateReported by Patient here for annual pe. Richard Solis PA-C [address] [facility] [address] [facility], [place], [address], [facility] 12/14/2023 17:00:23 05/29/2024 text/html here for a few reasonsfeeling franky cp, sobsee a/p for details reviewed pvix - seen by neuro & pain specialists in 02.13 Richard Solis PA-C [address] [facility] [address] [facility], [place], [address], [facility] 05/29/2024 17:03:50 01/15/2025 text/html Generic HPI TemplateReported by Patient here for annual pe. Richard Solis PA-C [address] [address], [place], [address], [facility] 01/15/2025 17:38:28 04/30/2025 text/html Upper Respirator y SymptomsReported by PatientUpper Respiratory SymptomsFor quality, patient reportsproductive cough,congested, andwheezy cough. For context, patient reportssick contact. For associated symptoms, patient reportsgreen sputum,yellow sputum,wheezing,fatigu e, andsweats. For location, patient reportschest. For severity, patient reportsmild. For duration, (3-4 days).ROS as noted in the HPI Yannick is a 65yr old M who presents for cough and congestion x3 days. Reports of having wheezing which he takes his albuterol for. Associated symptoms of fatigue and sweats. States he had leftover prednisone and took some yesterday which provided some relief, but when he took them today he had no relief. Denies of any measureable fever. HERMINIO COPELAND [address] [address], [place], [address], [facility] 04/30/2025 10:11:43
--- OUTSIDE RECORDS SUMMARY | 2025-06-24 02:22 | XMS_ITS | Data Portability ---
Author Organization [facility] Address [address] [place] [address] Care Team Providers Care Audio Director Name Role Phone AMBER ROSAS Referring Provider [phone] Assessment Encounter Date Assessment Date Assessment LastModified by Organization Details LastModified Time 12/04/2017 12/04/2017 Custom Device: Is a custom device needed for this patient? NO Reasons for Custom Device: Explain Reasoning: The patient will be seen on an as needed basis. Orthosis: is in stock and delivered today. Device delivered: Prefab, OTS If Prefab, Custom Fit, explain modifications - what was done and why: If Custom device, state reasons and provide narrative: Explain Reasoning: Orthotic Goals: Choose all that apply Provide Support Reduce Pain Immobilization Promote Healing Other (please specify): loc Not available 12/04/2017 10:43:28 Plan of Treatment Reminders Order Date Submit Date Provider Last Modified By Organization Details Last Modified Time Details Appointments None record ed. Lab None record ed. Referral None record ed. Procedures None record ed. Surgeries None record ed. Imaging None record ed. Medication Orders None record ed. Patient TargetsNo targets recorded. Patient Instructions Encounter Date Encounter Id Patient Instructions Last Modified By Organization Details Last Modified Time 12/04/2017 [id number] Device provided has good fit and function. Patient agrees with my assessment. Patient does understand wear and care of device. Patient does understand how to don and doff the device. Patient received written instructions. Patient was provided with my business card and agrees to call if any problems. [email or web address] Not available 12/04/2017 10:42:27 Reason for Referral None Reported. Procedures Surgical History Date Name Laterality Status Provider Name and Address Organization Details Recorded Time 8 BI Procedures completed Darron Perez [facility] 12/04/2017 10:43:13 Imaging Results None recorded. Procedure Notes None recorded. Medical Equipment None Reported. Vitals None Recorded Social History None recorded. Functional Status None recorded. Mental Status None recorded. Family History Nothing Reported. Medical History No medical history recorded. Past Encounters Encounter ID Performer Location Encounter Start Date Encounter Closed Date Diagnosis/Indication Diagnosis SNOMED-CT Code Diagnosis ICD10 Code Diagnosis IMO Codes Diagnosis Note [id number] [facility] [address] [place] [address] 12/04/2017 10:01:35 12/04/2017 21:39:37 Cervico-occipital neuralgia 11627581 M54.81 Health Concerns Section Related Observation LastModified by Organization Detai ls LastModified Time None Recorded Concern Status LastModified by Organization Details LastModified Time None Recorded Advance Directives Directive None Recorded Payers Insurance Date Sequence Insurance Name Policy Number Policy Banegas Covered Member ID Banegas Member ID Guarantor Name 12/04/2017 1 [facility] [id number] Yannick Sanchez [id number] Yannick Sanchez Notes Date Note Type Note Provider Name and Address Organization Details Recorded Time 12/04/2017 text/html BI HPIReported b y PatientPatient Details:For patient is, patient reportsout patient. For patient accompanied, patient reportsby .EvaluationFor pain?, patient reportslevel 10. For material allergies, patient reportsno. For numbness?, patient reportsnone reported. For edema?, patient reportsno edema reported. For weakness?, patient reportsno weakness reported. For instability?, patient reportsno instability reported. For skin problems, patient reportsnone reported. For diabetic (if lower extremity device), patient reportspatient reports not diabetic. For assistive devices?, patient reportsambulatory without assistive devices. For current injury, (occipital neurolgia). Marquez baker [place] - [facility] 12/04/2017 10:44:40
--- OUTSIDE RECORDS SUMMARY | 2025-06-24 02:22 | XMS_ITS | Continuity of Care Document ---
Author Organization [facility], Main Office Address [address] [facility] [address] [place] [address] Care Team Providers Care Gluer Machine Setup Operator Name Role Phone FRANCISCO EGAN Manager Of Product [phone] ELTON OZUNA Referring Provider MARCIO CARDONA Referring Provider COLE SOLIS Primary Care Provider [phone] KAUSHIK MIKE Neurologist MICHELE GOOD General Surgeon [...] Organization Details Last Modified Time Details Appointments FOLLOW UP 30MIN 2025 04:00P Marian Solis PA-C Not available Not available Not available Lab None recorded. Referral None recorded. Procedures None recorded. Surgeries None recorded. Imaging None recorded. Medication Orders doxycycli ne hyclate 100 mg capsule 2024 025 [id number], [address], [place], [id number], 05/14/2025 05:01:24 Patient TargetsNo targets recorded. Patient Instructions Encounter Date Encounter Id Patient Instructions Last Modified By Organization Details Last Modified Time 04/30/2025 [id number] pneumonia: care instructions Not available 04/30/2025 09:59:59 Reason for Referral None Reported. Problems Name Problem SNOMED Code Status Onset Date Resolution Date Notes Provider Name and Address Organization Details Recorded Time Allergic rhinitis 74374951 Completed 09/20/2016 Radha baker, [facility] 7 15:21:49 Asthma 335629725 Completed 09/16/2020 Cole Solis PA-C [address] [facility] [address], [place], [address] , [facility] 1 16:47:12 Benign prostati c hyperpla maribel 054200111 Active Not Available [facility] 2 13:14:17 Carpal tunnel syndrome 42795743 Active Not Available [facility] 2 13:14:17 Arthropa thy of joint of hand 420249150 Active Not Available [facility] 2 13:14:16 Elevated blood-pr essure reading without diagnosi s of hyperten ernie 863667313 Completed 02/03/2020 Baltazar Poole MD [address] [facility] [address], [place], [address] , [facility] 0 16:00:10 Gastroes ophageal reflux disease 449371505 Active Not Available [facility] 2 13:14:17 Migraine 17119089 Active Not Available [facility] 2 13:14:17 Pure hypercho lesterol emia 378720199 Completed 06/24/2014 Marilyn baker [facility] 6 15:37:34 Hyperlip idemia 83670683 Active Not Available [facility] 2 13:14:17 Insomnia 038488150 Completed 06/24/2014 Cole Solis PA-C [address] [facility] [address], [place], [address] , [facility] 3 11:57:56 Patient status finding 490518145 Completed 06/24/2014 Marilyn baker [facility] 6 15:37:34 Obstruct mundo sleep apnea syndrome 32594691 Active Not Available [facility] 2 13:14:17 Acquired trigger finger 0060488 Active Not Available [facility] 2 13:14:17 Varicose veins of lower extremit y with inflamma tion Active Not Available [facility] 2 13:14:16 Varicose veins of lower extremit y 08077050 Completed 06/24/2014 Marilyn baker [facility] 6 15:37:34 Acute sinusiti s 97981640 Completed 06/24/2014 Marilyn baker [facility] 6 15:37:34 Cellulit is of leg, excludin g foot 070256434 Completed 09/20/2016 Radha baker [facility] 7 15:21:45 Chronic pain 11495526 Active Not Available [facility] 2 13:14:17 Malaise and fatigue 442923370 Completed 200702/11/2014 RECORDED 03/21/20 08 10:04AM BY ZAHIRA ABDI ON/ADDEN DUM Marilyn baker [facility] 6 15:37:34 Administ ration of bacteria l and viral vaccine Completed 200702/11/2014 RECORDED 03/21/20 08 10:05AM BY SAMUEL WINCHESTER, OFFICE VISIT Marilyn baker [facility] 6 15:37:34 Malaise and fatigue 126366365 Completed 200703/03/2014 RECORDED 03/21/20 08 10:04AM BY ZAHIRA ABDI ON/ADDEN NAIMA baker [facility] 6 15:37:34 Administ ration of bacteria l and viral vaccine Completed 200703/03/2014 RECORDED 03/21/20 08 10:05AM BY SAMUEL WINCHESTER, OFFICE VISIT Marilyn Aguayo ro null, [facility] 6 15:37:34 Acute bronchit is 16734133 Completed 200802/11/2014 IMPRESSI ON: PRODUCTI VE COUGH, WHEEZING , TREAT BELOW, CALL IFNOT BETTER.; RECORDED 05/15/20 11:30AM BY MENA GIBBS MA, ANNOTATI ON/ADDEN DUM Marilyn Aguayo ro null, [facility] 6 15:37:34 Bronchos pasm 6230154 Completed 200802/11/2014 IMPRESSI ON: SOUNDS LIKE NEW ISSUE, ALSO RELATED TO ALLERGIE S, 2 SONS WITH ASTHMA, TREAT BELOW, FOLLOW UP NEEDED; RECORDED 05/15/20 11:30AM BY MENA GIBBS MA, ZAHIRA ON/ADDDROY Aguayo ro null, [facility] 6 15:37:34 Chronic maxillar y sinusiti s 32124445 Completed 200802/11/2014 RECORDED 05/15/20 11:30AM BY MENA GIBBS MA, ANNOTATI ON/ADDDORY Aguayo ro null, [facility] 6 15:37:34 Acute bronchit is 52505237 Completed 200803/03/2014 IMPRESSI ON: PRODUCTI VE COUGH, WHEEZING , TREAT BELOW, CALL IFNOT BETTER.; RECORDED 05/15/20 11:30AM BY MENA GIBBS MA, ANNOTATI ON/ADDEN DUM Marilyn Aguayo ro null, [facility] 6 15:37:34 Bronchos pasm 7482127 Completed 200803/03/2014 IMPRESSI ON: SOUNDS LIKE NEW ISSUE, ALSO RELATED TO ALLERGIE S, 2 SONS WITH ASTHMA, TREAT BELOW, FOLLOW UP NEEDED; RECORDED 05/15/20 11:30AM BY MENA GIBBS MA, ANNOTATI ON/ADDEN DUM Marilyn D'Alessand ro null, [facility] 6 15:37:34 Chronic maxillar y sinusiti s 87321547 Completed 200803/03/2014 RECORDED 05/15/20 09 11:30AM BY MENA GIBBS MA, ANNOTATI ON/ADDEN DUM Marilyn Wilfredo'Alessand ro null, [facility] 6 15:37:34 Gastroes ophageal reflux disease 869619632 Completed 201002/11/2014 RECORDED 02/04/20 11 3:56PM BY MENA GIBBS MA, ANNOTATI ON/ADDEN DUM Marilyn Wilfredo'Alessand ro null, [facility] 6 15:37:34 Pure hypercho lesterol emia 980792515 Completed 201002/11/2014 RECORDED 02/04/20 11 3:56PM BY MENA GIBBS MA, ANNOTATI ON/ADDEN DUM Marilyn Wilfredo'Alessand ro null, [facility] 6 15:37:34 Migraine 66452677 Completed 201002/11/2014 RECORDED 02/04/20 11 3:56PM BY MENA GIBBS MA, ANNOTATI ON/ADDEN DUM Marilyn Wilfredo'Alessand ro null, [facility] 6 15:37:34 Alopecia 73408617 Completed 201102/11/2014 RECORDED 04/20/20 12 10:34AM BY EPHRAIM PETERSON I ANNOTATI ON/ADDEN DUM Marilyn D'Alessand ro null, [facility] 6 15:37:34 Bronchit is 70958955 Completed 201102/11/2014 RECORDED 04/20/20 12 10:34AM BY EPHRAIM PETERSON I, ANNOTATI ON/ADDEN DUM Marilyn D'Alessand ro null, [facility] 6 15:37:34 Contact dermatit is 68979969 Completed 201102/11/2014 RECORDED 04/20/20 12 10:34AM BY EPHRAIM PETERSON I ANNOTATI ON/ADDEN DUM Marilyn D'Alessand ro null, [facility] 6 15:37:34 Cough 63325042 Completed 201102/11/2014 RECORDED 04/20/20 12 10:34AM BY EPHRAIM PETERSON I ANNOTATI ON/ADDEN DUM Marilyn D'Alessand ro null, [facility] 6 15:37:34 Enthesop athy 39674765 Completed 201102/11/2014 RECORDED 04/20/20 12 10:34AM BY EPHRAIM PETERSON I ANNOTATI ON/ADDEN DUM Marilyn D'Alessand ro null, [facility] 6 15:37:34 Hemorrho ids [id number] Completed 201102/11/2014 RECORDED 04/20/20 12 10:34AM BY EPHRAIM PETERSON I ANNOTATI ON/ADDEN DUM Marilyn D'Alessand ro null, [facility] 6 15:37:34 Irritabl e bowel syndrome 79040126 Completed 201102/11/2014 RECORDED 04/20/20 12 10:34AM BY EPHRAIM PETERSON I ANNOTATI ON/ADDEN DUM Marilyn D'Alessand ro null, [facility] 6 15:37:34 Low back pain 794854714 Completed 201102/11/2014 RECORDED 04/20/20 12 10:34AM BY EPHRAIM PETERSON I ANNOTATI ON/ADDEN DUM Marilyn D'Alessand ro null, [facility] 6 15:37:34 Fibromyo sitis 72417316 Completed 201102/11/2014 RECORDED 04/20/20 12 10:34AM BY EPHRAIM PETERSON I ANNOTATI ON/ADDEN DUM Marilyn D'Alessand ro null, [facility] 6 15:37:34 Sleep apnea 98010249 Completed 201102/11/2014 RECORDED 04/20/20 12 10:34AM BY ANITHA JUAREZATI ON/ADDEN DUM Marilyn D'Alessand ro null, [facility] 6 15:37:34 Screenin g for malignan t neoplasm of colon Completed 201102/11/2014 RECORDED 04/20/20 12 10:34AM BY EPHRAIM PETERSON I ANNOTATI ON/ADDEN DUM Marilyn D'Alessand ro null, [facility] 6 15:37:34 Disorder of rotator cuff Completed 201102/11/2014 IMPRESSI ON: TEAR, REPAIRED BY GABRIELE 02/28; RECORDED 04/20/20 12 10:34AM BY ANITHA JUAREZATI ON/ADDEN DUM Marilyn D'Alessand ro null, [facility] 6 15:37:34 Lateral epicondy litis 235775231 Completed 201102/11/2014 RECORDED 04/20/20 12 10:34AM BY ANITHA JUAREZATI ON/ADDEN DUM Marilyn D'Alessand ro null, [facility] 6 15:37:34 Umbilica l hernia 523121230 Completed 201102/11/2014 RECORDED 04/20/20 12 10:34AM BY ZAHIRA JUAREZ ON/ADDEN DUM Marilyn D'Alessand ro null, [facility] 6 15:37:34 Wheezing 93628091 Completed 201102/11/2014 IMPRESSI ON: SAMPLE OF ALBUTERA L TO USE PRN; RECORDED 04/20/20 12 10:34AM BY ANITHA JUAREZATI ON/ADDEN DUM Marilyn D'Alessand ro null, [facility] 6 15:37:34 Alopecia 41377465 Completed 201103/03/2014 RECORDED 04/20/20 12 10:34AM BY ANITHA JUAREZATI ON/ADDEN DUM Marilyn D'Alessand ro null, [facility] 6 15:37:34 Bronchit is 01377453 Completed 201103/03/2014 RECORDED 04/20/20 12 10:34AM BY EPHRAIM PETERSON I ANNOTATI ON/ADDEN DUM Marilyn Wilfredo'Alessand ro null, [facility] 6 15:37:34 Contact dermatit is 17637387 Completed 201103/03/2014 RECORDED 04/20/20 12 10:34AM BY EPHRAIM PETERSON I ANNOTATI ON/ADDEN DUM Marilyn Wilfredo'Alessand ro null, [facility] 6 15:37:34 Cough 65777904 Completed 201103/03/2014 RECORDED 04/20/20 12 10:34AM BY EPHRAIM PETERSON I ANNOTATI ON/ADDEN DUM Marilyn Wilfredo'Alessand ro null, [facility] 6 15:37:34 Enthesop athy 18307150 Completed 201103/03/2014 RECORDED 04/20/20 12 10:34AM BY ANITHA JUAREZATI ON/ADDEN DUM Marilyn Wilfredo'Alessand ro null, [facility] 6 15:37:34 Hemorrho ids 87682227 Completed 201103/03/2014 RECORDED 04/20/20 12 10:34AM BY EPHRAIM PETERSON I ANNOTATI ON/ADDEN DUM Marilyn Katz'Alessand ro null, [facility] 6 15:37:34 Irritabl e bowel syndrome 55551593 Completed 201103/03/2014 RECORDED 04/20/20 12 10:34AM BY EPHRAIM PETERSON I ANNOTATI ON/ADDEN DUM Marilyn Wilfredo'Alessand ro null, [facility] 6 15:37:34 Low back pain 800811950 Completed 201103/03/2014 RECORDED 04/20/20 12 10:34AM BY EPHRAIM PETERSON I ANNOTATI ON/ADDEN DUM Marilyn Wilfredo'Alessand ro null, [facility] 6 15:37:34 Fibromyo sitis 30937731 Completed 201103/03/2014 RECORDED 04/20/20 12 10:34AM BY ANITHA JUAREZATI ON/ADDEN DUM Marilyn Wilfredo'Alessand ro null, [facility] 6 15:37:34 Sleep apnea 03786607 Completed 201103/03/2014 RECORDED 04/20/20 12 10:34AM BY ANITHA JUAREZATI ON/ADDEN DUM Marilyn Katz'Alessand ro null, [facility] 6 15:37:34 Screenin g for malignan t neoplasm of colon Completed 201103/03/2014 RECORDED 04/20/20 12 10:34AM BY ZAHIRA JUAREZ ON/ADDEN DUM Marilyn Katz'Alessand ro null, [facility] 6 15:37:34 Disorder of rotator cuff Completed 201103/03/2014 IMPRESSI ON: TEAR, REPAIRED BY GABRIELE 02/28; RECORDED 04/20/20 12 10:34AM BY ZAHIRA JUAREZ ON/ADDEN DUM Marilyn Katz'Alessand ro null, [facility] 6 15:37:34 Lateral epicondy litis 968095961 Completed 201103/03/2014 RECORDED 04/20/20 12 10:34AM BY ZAHIRA JUAREZ ON/ADDEN DUM Marilyn Katz'Alessand ro null, [facility] 6 15:37:34 Umbilica l hernia 433761641 Completed 201103/03/2014 RECORDED 04/20/20 12 10:34AM BY ZAHIRA JUAREZ ON/ADDEN DUM Marilyn Wilfredo'Alessand ro null, [facility] 6 15:37:34 Wheezing 55140382 Completed 201103/03/2014 IMPRESSI ON: SAMPLE OF ALBUTERA L TO USE PRN; RECORDED 04/20/20 12 10:34AM BY EPHRAIM PETERSON I, ZAHIRA ON/ADDEN DUM Marilyn D'Alessand ro null, [facility] 6 15:37:34 Patient status finding [id number] Completed 201202/11/2014 RECORDED 12/12/19 13 3:24PM BY BRET BERG MA, ANNOTATI ON/ADDEN DUM Marilyn D'Alessand ro null, [facility] 6 15:37:34 Benign neoplasm of colon 78185688 Completed 201202/11/2014 STORY: DUE COLONOSC OPY 2013; RECORDED 12/12/19 13 3:24PM BY BRET BERG MA, ZAHIRA ON/ADDEN DUM Marilyn D'Alessand ro null, [facility] 6 15:37:34 Diarrhea 98086043 Completed 201202/11/2014 RECORDED 12/12/19 13 3:24PM BY BRET BERG MA, ANNOTATI ON/ADDEN DUM Marilyn D'Alessand ro null, [facility] 6 15:37:34 Renewal of prescrip tion Completed 201202/11/2014 RECORDED 12/12/19 13 3:24PM BY BRET BERG MA, ANNOTATI ON/ADDEN DUM Marilyn D'Alessand ro null, [facility] 6 15:37:34 Patient status finding [id number] Completed 201203/03/2014 RECORDED 12/12/19 13 3:24PM BY BRET BERG MA, ANNOTATI ON/ADDEN DUM Marilyn D'Alessand ro null, [facility] 6 15:37:34 Benign neoplasm of colon 83095816 Completed 201203/03/2014 STORY: DUE COLONOSC OPY 2013; RECORDED 12/12/19 13 3:24PM BY BRET BERG MA, ANNOTATI ON/ADDEN DUM Marilyn D'Alessand ro null, [facility] 6 15:37:34 Diarrhea 89564694 Completed 201203/03/2014 RECORDED 12/12/19 13 3:24PM BY BRET BERG MA, ZAHIRA ON/ADDEN DUM Marilyn Katz'Alessand ro null, [facility] 6 15:37:34 Renewal of prescrip tion Completed 201203/03/2014 RECORDED 12/12/19 13 3:24PM BY BRET BERG MA, ZAHIRA ON/ADDEN DUM Marilyn Wilfredo'Alessand ro null, [facility] 6 15:37:34 Testicul ar hypofunc tion 922624125 Completed 201202/11/2014 RECORDED 06/13/20 13 3:03PM BY BRET BERG MA, ZAHIRA ON/ADDEN DUM Marilyn Katz'Alessand ro null, [facility] 6 15:37:34 Testicul ar hypofunc tion 479780122 Completed 201203/03/2014 RECORDED 06/13/20 13 3:03PM BY BRET BERG MA, ZAHIRA ON/ADDEN DUM Marilyn Wilfredo'Alessjulieth ro null, [facility] 6 15:37:34 Influenz a vaccine needed [id number] 06 Completed 201302/11/2014 RECORDED 10/19/19 14 1:36PM BY BRET BERG MA, ZAHIRA ON/ADDEN DUM Marilyn Katz'Lisa ro null, [facility] 6 15:37:34 Adult health examinat ion Completed 201302/11/2014 STORY: COLONOSC OPY DUE 2013/TUB ULAR ADENOMA; RECORDED 10/19/19 14 1:36PM BY BRET BERG MA, ZAHIRA ON/ADDEN DUM Marilyn Katz'Alessand ro null, [facility] 6 15:37:34 Influenz a vaccine needed [id number] 06 Completed 201303/03/2014 RECORDED 10/19/19 14 1:36PM BY BRET BERG MA ANNOTCODY ON/ADDEN DUM Marilyn baker, [facility] 6 15:37:34 Adult health examinat ion Completed 201303/03/2014 STORY: COLONOSC OPY DUE 2013/TUB ULAR ADENOMA; RECORDED 10/19/19 14 1:36PM BY BRET BERG MA ANNOTCODY ON/ADDEN DUM Marilyn baker, [facility] 6 15:37:34 Obesity 077860161 Active 2018 Not Available [facility] 2 13:14:16 Impaired fasting glycemia 515663290 Completed 201911/29/2021 Cole Solis PA-C [address] [address], [place], [address] , [facility] 2 18:00:37 Irritabl e bowel syndrome with diarrhea 311775621 Active 2020 Not Available [facility] 2 13:14:17 Right inguinal hernia 123654469 Active 2020 Not Available [facility] 2 13:14:16 Prediabe britany 318374880 Active 2021 Not Available [facility] 2 13:14:17 History of polyp of colon 519698393 Active 2021 Not Available [facility] 2 13:14:17 Clostrid ium difficil e colitis 457966139 Active 2021 Not Available [facility] 2 13:14:16 Insomnia 425894889 Active 2022 Cole Solis PA-C [address] [facility] [address], [place], [address] , [facility] 3 11:57:56 Problem Notes None recorded. Procedures Surgical History Date Name Laterality Status Provider Name and Address Organization Details Recorded Time 05/29/20 24 Chronic Pain Assessment completed Cole Solis PA-C [address] [facility] [address], [place], [address], [facility] 05/29/2024 17:01:53 01/15/20 24 Colonoscopy completed Marybeth Harrell [facility] 01/16/2024 08:46:18 01/15/20 24 Endoscopic us exam esoph completed Marybeth Harrell [facility] 01/16/2024 08:45:55 01/21/20 23 Chronic Pain Assessment completed Tamanna Winchester MA [facility] 01/20/2023 15:25:31 07/12/20 21 Hernia Repair completed Raegan Logan [facility] 07/21/2021 10:11:13 05/20/20 21 Chronic Pain Assessment completed Halina Andre MA [facility] 05/20/2021 08:38:13 11/21/19 21 Chronic Pain Assessment completed Halina Andre MA [facility] 11/20/2020 09:16:35 02/03/20 20 Chronic Pain Assessment completed Alesia Corey MA [facility] 02/03/2020 15:47:28 07/30/19 20 Chronic Pain Assessment completed Alesia Corey MA [facility] 07/30/2019 15:45:10 03/28/20 19 Chronic Pain Assessment completed Alesia Corey MA [facility] 03/28/2019 16:04:10 12/25/19 19 Chronic Pain Assessment completed Ephraim Butler [facility] 12/24/2018 15:30:11 08/03/19 18 Chronic Pain Assessment completed Radha Limon MA [facility] 08/03/2017 15:13:54 umbilical hernioplasty completed Baltazar Poole MD [address] [facility] [address], [place], [address], [facility] 06/20/2021 21:08:43 Carpal tunnel surgery completed Kaci Rm [facility] 09/16/2020 15:51:33 Other [facility]2020 15:51:33 Repair rotator cuff chronic completed Kaci Rm [facility] 09/16/2020 15:51:33 Other completed Alisia Chowdary [facility] 06/24/2014 13:41:02 Imaging Results None recorded. Procedure Notes None recorded. Medical Equipment None Reported. Allergies Allergen ID Allergen Name Allergen Category Reaction Reaction Severity Criticality Documentation Date Start Date Code Code System Note Provider Name and Address Organization Details Recorded Time 32423 indometha britney medicatio n lighthead edness Not available Not available 06/08/2023 5781 [facility] 15:[facility]25 9575 Wellbutri n medicatio n Not available Not available Not available 02/04/20142011 33335 RxNorm REACT ION: MOOD SWING S; COMME NT: RECOR DED 04/20 3:12P M BY SHUBHAM AMBROCIO MA, ANNOT ATION /ADDE NDUM; Not Available [facility] 4 13:26:33 9576 Wellbutri n medicatio n Not available Not available Not available 02/04/20142013 04973 RxNorm made very [facility] 15:[facility]:24 Medications Name Sig Start Date [...] 02/03 completed RECORDED 02/04/20 11 4:03PM BY MENA GIBBS MA, OFFICE VISIT; Not Available Not [...] RECORDED 03/05/20 10 3:06PM BY ZAHIRA SMART ON/ADDEN DUM; Not Available Not Available Not Available oxycodone -acetamin ophen 5 mg-325 mg tablet TAKE ONE TABLET BY MOUTH EVERY 6 HOURS NEEDED FOR PAIN 11/29 completed Not Available Not Available Not Available Fluticaso ne Propionat e (Inhal) 50 mcg/BLIST inhl powd DAILY 02/03 completed RECORDED 02/04/20 11 4:03PM BY MENA GIBBS MA, OFFICE VISIT; Not Available Not [...] RECORDED 05/02/20 13 10:23AM BY ZAHIRA SMART ON/ADDEN DUM; Not Available [...] 08 10:42AM BY MARILYN LOGAN MD, ZAHIRA ON/ADDEN DUM; [...] 03/10/20 09 3:06PM BY MARILYN LOGAN MD, ANNOTATI ON/ DUM; Not Available Not Available Not [...] active Not Available Not Available Not Avai greyson M-4 Knee High Stockings DAILY 05/02 completed RECORDED 05/02/20 13 10:23AM BY MONICA DAVIS, ZAHIRA ON/ DUM; Not Available Not Available Not Available etodolac 400 mg tablet 09/20 completed Not Available Not Available Not Available hydrocodo ne 5 mg-acetam inophen 500 mg tablet THREE TIMES DAILY, NEEDED 10/18 completed RECORDED 10/19/19 14 4:32PM BY MARILYN LOGAN MD, ANNOTATI ON/ DUM; Not Available Not Available Not [...] Available Not Available Nasonex 50 mcg/actua tion [place] DAILY 03/05 completed RECORDED 03/05/20 10 3:07PM BY ZAHIRA SMART ON/VALE DUM; Not Available [...] RECORDED 03/05/20 10 2:46PM BY ZAHIRA SMART ON/VALE DUM; Not Available [...] Available zolpidem ER 12.5 mg tablet,ex tended release,m [facility] QHS / HS 05/05 completed RECORDED 05/05/20 09 9:20PM BY MARILYN LOGAN MD, ANNOTATI ON/ADDEN DUM; Not Available Not Available Not [...] 03/05 completed RECORDED 03/05/20 10 3:05PM BY MONICA DAVIS, ANNOTATI ON/ADDEN DUM; Not Available Not Available Not Available fexofenad ine DAILY 02/03 completed RECORDED 02/04/20 11 4:02PM BY MENA GIBBS MA, OFFICE VISIT; Not Available Not Available Not Available Xopenex EVERY FOUR HOURS, NEEDED 10/02 completed RECORDED 10/25/19 08 9:02AM BY JANAK SEN MD, MEDICATI ON AUTO-[place] CTIVATIO N; Not Available Not Available Not Available Flovent HFA BID 03/05 completed RECORDED 03/05/20 10 2:46PM BY MONICA DAVIS, ANNOTATI ON/ADDEN DUM; Not Available Not Available Not [...] Not Available Not Available OptiChamb er Feli [facility] spacer USE WITH INHALER active Not Available [...] completed Not Available Not Available Not Available Nurtec ODT 75 mg disintegr ating tablet Take 1 tablet every day by oral route for 30 days. 11/19 completed Not Available Not Available Not Available Flucelvax Quad (PF) 60 mcg (15 mcg x 4)/0.5 mL IM syringe PHARMACY ADMINIST TENZIN 09/16 completed Not Available Not Available Not [...] Updated DateTime 5 179.71 cm 30.5 kg/m2 49656.5 4 g 82 /min 100 % 98.4 [degF] 132/72 mm[Hg] Tobi donahue [facility] 5 09:36:25 Social History Question Answer Notes LastModified by Organizat ion Details LastModified Time Tobacco Smoking Status Never Smoker Alisia baker [facility] 06/24/2014 15:14:09 Do You Have An Advance Directive? No [email or web address] Information not available 05/03/2022 Is Blood Transfusion Acceptable In An Emergency? Yes Information not available 09/15/2015 What Is Your Level Of Caffeine Consumption? Occasional Coffee 1-2 Cups Daily Tea Information not available 11/29/2021 How Much Tobacco Do You Chew? None Information not available 09/16/2020 In The 14 Days Before Symptom Onset, Have You Had Close Contact With A Laboratory-confir med COVID-19 While That Case Was Ill? No [email or web address] Information not available 05/03/2022 In The 14 Days Before Symptom Onset, Have You Had Close Contact With A Person Who Is Under Investigation For COVID-19 While That Person Was Ill? No [email or web address] Information not available 05/03/2022 Have You Been To An Area Known To Be High Risk For COVID-19? No [email or web address] Information not available 05/03/2022 What Type Of Diet Are You Following? REGULAR Information not available 09/20/2016 Which Illicit Or Recreational Drugs Have You Used? None Information not available 11/29/2021 Live Alone Or With Others? With Others Information not available 05/03/2022 Do You Take Precautions To Prevent Distracted Driving? Yes Information not available 09/15/2015 How Often Do [...] Or Greater Than 100 Degrees Fahrenheit? No Information not available 02/03/2020 Are You Or Anyone In Your Household A Health Care Provider Or Emergency Responder? No [email or web address] Information not available 02/03/2020 To The Best Of Your Knowledge Have You Been In Close Proximity To Any Individual Who Tested Positive For COVID-19? No [email or web address] Information not available 02/03/2020 *AWV ONLY* Are You Presently Prescribed Opioid Medication By PCP Or Specialist? If YES -Provider Assess The Benefit For Other, Non-opioid Pain Therapies Instead, Even If The Patient Does Not Have OUD But Is Possibly At Risk. No Information not available 09/16/2020 Have You Recently Traveled To A COVID-19 High Risk Area Or Gathering In The Last 10 Days? No Information not available 09/16/2020 What Was The Date Of Your Most Recent Tobacco Screening? 01/15/2025 [email or web address] Information not available 01/15/2025 How Many Children Do You Have? 2 [email or web address] Information not available 06/24/2014 Do You Use Protection During Sex? No Information not available 11/29/2021 What Is Your Relationship Status? [email or web address] Information not available 05/03/2022 Do You Use Your Seat Belt Or Car Seat Routinely? Yes Information not available 11/29/2021 Seat Belts Used Routinely Yes [email or web address] Information not available 05/03/2022 Are You Sexually Active? Yes Information not available 09/20/2016 Smoke Alarm In Home Yes [email or web address] Information not available 05/03/2022 Do You Have Smoke And Carbon Monoxide Detectors In Your Home? Yes Information not available 11/29/2021 At What Age Did You Start Smoking Tobacco? 0 Information not available 11/29/2021 Are You Passively Exposed To Smoke? No Information no t available 09/20/2016 How Much Tobacco Do You Smoke? No Information not available 09/20/2016 Do You Use Sunscreen Routinely? Yes [email or web address] Information not available 09/15/2015 How Many Years [...] available 09/16/2020 Are you currently employed? Yes Information not available 11/29/2021 Are you able to walk independently without assistance or assistive devices? [email or web address] Information not available 05/03/2022 Are you able to care for yourself independently? 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 Never used electronic cigarettes [email or web address] Information not available 05/03/2022 What is your exercise level? 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 Family History Relationship Description Onset Age of this Age Resolved Age Notes LastModified by Organization Details LastModified Time Mother Chronic obstructive pulmonary disease [email or web address] Not available 16:01:48 Mother Non-Hodgkin' s lymphoma (clinical) 65 Not available 04/23 08:36:06 Father Myocardial infarction 55 [email or web address] Not available 04/23 08:36:06 Notes:no fh p ca or crc Medical History Condition Response Other Y Acid Reflux (GERD) Y Headaches/Migraines Y Headaches Y Osteoporosis N High Cholesterol Y Immunizations Vaccine Type Date Status Note Provider Nam e and Address Organization Details Recorded Time Influenza, MDCK, quadrivalent, PF [facility] COVID-19, mRNA, LNP-S, PF, 100 mcg/0.5mL dose or 50 mcg/0.25mL dose 1 [facility] 14:19:54 COVID-19, mRNA, LNP-S, PF, 100 mcg/0.5mL dose or 50 mcg/0.25mL dose 1 completed Marybeth Harrell [facility] 06/13/2022 14:19:54 Influenza, MDCK, trivalent, PF 5 completed Marybeth Harrell [facility] 06/13/2022 14:19:54 Influenza, split virus, quadrivalent, preservative [facility] 14:19:54 Tdap 1 completed Marybeth Harrell [facility] 06/13/2022 14:19:54 COVID-19, mRNA, LNP-S, PF, 100 mcg/0.5mL dose or 50 mcg/0.25mL dose 1 [facility] 14:19:54 Influenza, split virus, trivalent, PF 6 [facility] 14:19:54 Influenza, split virus, trivalent, PF 4 completed Marybeth baker, [facility] 06/13/2022 14:19:54 Influenza, split virus, quadrivalent, PF 0 completed Marybeth baker, [facility] 06/13/2022 14:19:54 Tdap 7 completed Marybeth baker, [facility] 06/13/2022 14:19:54 Influenza, split virus, quadrivalent, PF 1 completed Marybeth baker, [facility] 06/13/2022 14:19:54 Influenza, split virus, quadrivalent, PF 7 completed Marybeth baker, [facility] 06/13/2022 14:19:54 Influenza, MDCK, quadrivalent, PF 2 completed Mena mclaughlin [place] samuel, [facility] 06/08/2023 15:40:26 [facility] 14:19:54 influenza, seasonal, intradermal, preservative free 2 completed Marybeth baker, [facility] 06/13/2022 14:19:54 influenza, seasonal, intradermal, preservative free 3 completed Marybeth baker, [facility] 06/13/2022 14:19:54 Past Encounters Encounter ID Performer Location Encounter Start Date Encounter Closed Date Diagnosis/Indication Diagnosis SNOMED-CT Code Diagnosis ICD10 Code Diagnosis IMO Codes Diagnosis Note [id number] Tarik Tolbert MD Main Office [address] [facility] [address] [place] [address] 04/30/2025 09:21:51 04/30/2025 10:03:35 Pneumonia 530596631 J18.9 [id number] symptoms of productive cough, congestion , fatigue, [...] by Organization Details LastModified Time None Recorded Payers Encounter Date Sequence Insurance Name Policy Number Policy Banegas Covered Member ID Banegas Member ID Guarantor Name 04/30/2025 1 [facility]: [facility] [id number] Yannick Sanchez [id number] Yannick Sanchez Notes Date Note Type Note Provider Name and Address Organization Details Recorded Time 04/30/2025 text/html Upper Respirator y SymptomsReported by [...] Denies of any measureable fever. HERMINIO COPELAND [address] [facility] [address], [place], [address], [facility] 04/30/2025 10:11:43
== END 2025-06-24 02:21 | disposition left against medical advice (07) ==
PROVIDERS: Registered Nurse Emergency; Emergency Provider Emergency Medicine
DX: R10.9 Unspecified abdominal pain (principal); Z53.29 Procedure and treatment not carried out because of patient's decision for other reasons; R10.13 Epigastric pain; R94.31 Abnormal electrocardiogram [ECG] [EKG]; Z03.818 Encounter for observation for suspected exposure to other biological agents ruled out; R11.10 Vomiting, unspecified
CPT/HCPCS: 80053; 81001; 83690; 84484; 85025; 87637; 93005; 99283

== ENCOUNTER → 2025-06-23 16:47 | Outpatient (BNV) | payer OTHER, SELFPAY | PROVIDERS: Emergency Provider Emergency Medicine; Visit Provider Internal Medicine | DX: R94.31 Abnormal electrocardiogram [ECG] [EKG] (principal); R10.13 Epigastric pain | CPT/HCPCS: 93010 ==